=== PATIENT | female | born 1990 | race African-American/Black ===

== ENCOUNTER 2016-07-22 15:14 | Emergency (ER) | payer OTHER ==
[~2016-07-22] VITALS: Ht 152.4 cm; Wt 54.4 kg
[~2016-07-22 15:14] MED LIST: DOXY100C2 PO; HYDR-971 PO; LEVO500T38 PO; METR500T PO; NAPR500T8 PO; OXYC-244 PO; OXYC-323 PO; OXYC10TA32 PO; OXYC1TAB8 PO
[2016-07-22 15:24] VITALS: BP 137/80
[2016-07-22] MEDS ORDERED: OXYC-244 PO (15:28)
--- NOTE | 2016-07-22 15:28 | PHYS DOC ---
Past Medical History Past Medical History: Asthma, IBS, P.I.D. Additional Past Medical Histor: ulcer, endometriosis, Chronic R leg pain, Chronic Pelvic Pain Past Surgical History: Tonsillectomy, Other Additional Past Surgical Histo: right LOWER leg- compound fx Alcohol Use: None Drug Use: None Adult General Chief Complaint Chief Complaint: PAIN CONTROL [facility] HPI Patient is a 26 year old female with history of PID, IBS, chronic abdominal pain, chronic left pelvic pain, who presents today with 10 out of 10 left pelvic pain chronic in nature. Patient states she has been worked up by GI, OB/ MEMBERSHIP SOLICITOR, she states she has been told by the PLANT SPECIALIST she could have cervical cancer as well as chronic left pelvic pain. She was started on amitriptyline and she is on oxycodone 7.5/325 for breakthrough pain. Patient states she ran out of her oxycodone. She states she has an appointment with her family doctor in a couple days. Patient is requesting some pain management today. Review of Systems Review of Systems Constitutional: Denies fever or chills [] Eyes: Denies change in visual acuity, redness, or eye pain [] HENT: Denies nasal congestion or sore throat [] Respiratory: Denies cough or shortness of breath [] Cardiovascular: No additional information not addressed in HPI [] GI: Chronic left pelvic pain : Denies dysuria or hematuria [] Musculoskeletal: Denies back pain or joint pain [] Integument: Denies rash or skin lesions [] Neurologic: Denies headache, focal weakness or sensory changes [] Endocrine: Denies polyuria or polydipsia [] Current Medications Current Medications Current Medications Medications (Trade) Dose Ordered Sig/Luis Start Time Stop Time Status Last Admin Dose Admin Oxycodone/ Acetaminophen (Percocet 7.5/ 325) 2 tab 1X ONCE 07/22/16 15:30 07/22/16 15:31 UNV Allergies Allergies Allergies Coded Allergies Type Severity Reaction Last Updated Verified latex Allergy Severe Anaphylaxis 05/28/16 No Physical Exam Physical Exam Constitutional: Well developed, well nourished, no acute distress, non-toxic appearance. [] HENT: Normocephalic, atraumatic, bilateral external ears normal, oropharynx moist, no oral exudates, nose normal. [] Eyes: PERRLA, EOMI, conjunctiva normal, no discharge. [] Neck: Normal range of motion, no tenderness, supple, no stridor. [] Cardiovascular:Heart rate regular rhythm, no murmur [] Lungs & Thorax: Bilateral breath sounds clear to auscultation [] Abdomen: Bowel sounds normal, soft, no tenderness, no masses, no pulsatile masses. [] Skin: Warm, dry, no erythema, no rash. [] Back: No tenderness, no CVA tenderness. [] Extremities: No tenderness, no cyanosis, no clubbing, ROM intact, no edema. [] Neurologic: Alert and oriented X 3, normal motor function, normal sensory function, no focal deficits noted. [] Psychologic: Affect normal, judgement normal, mood normal. [] EKG EKG [] Radiology/Procedures Radiology/Procedures [] Course & Med Decision Making Course & Med Decision Making Pertinent Labs and Imaging studies reviewed. (See chart for details) Patient is well known to this ED for chronic abdominal pain, pelvic pain on the left side. She has been worked up multiple times in this hospital as well as through the PLANT SPECIALIST and GI. She is here today requesting a prescription for oxycodone. She states she ran out of the medication and is not able to see her doctor until August 12, 2016. I gave her prescription for oxycodone. Shemaron Disclaimer Kelsea Disclaimer This electronic medical record was generated, in whole or in part, using a voice recognition dictation system. Departure Departure Impression: Primary Impression: Pelvic pain Additional Impression: Narcotic dependence Disposition: 01 HOME, SELF-CARE Condition: STABLE Referrals: NO PCP (PCP) Follow-up with your doctor on August 13 2016 as scheduled Patient Instructions: Abdominal Pain (Nonspecific) Additional Instructions: You were seen for chronic l;eft pelvic pain. We recommend you follow-up with your own doctor on August 13, 2016 as scheduled. Try and see if you can get an earlier appointment. Scripts Oxycodone/Apap 7.5-325 (Percocet 7.5-325 Mg Tablet)1 Each Tablet1 Tab PO PRN Q6HRS PRN PAIN #30 TAB Ref 0 Prov:MAX BOO TERRAPIN FISHER 07/22/16 Problem Qualifiers MAX BOO TERRAPIN FISHER Jul 22, 2016 15:28
[2016-07-22] MEDS ORDERED: OXYCODONE/APAP 7.5/325 TABLET. PO ONE (15:30)
== END 2016-07-22 15:38 | disposition home or self-care (01) ==
LOC: ER 15:14
DX: R10.2 Pelvic and perineal pain (principal); F11.20 Opioid dependence, uncomplicated; G89.29 Other chronic pain; K58.9 Irritable bowel syndrome, unspecified; N73.9 Female pelvic inflammatory disease, unspecified; J45.909 Unspecified asthma, uncomplicated; Z91.040 Latex allergy status
CPT/HCPCS: 99283

== ENCOUNTER 2016-07-25 16:44 | Observation (INO) | payer OTHER ==
[~2016-07-25] VITALS: Ht 152.4 cm; Wt 59.0 kg
[2016-07-25] MEDS ORDERED: IV NORMAL SALINE 1000ML BAG 1,000 ML IV ONE (17:30)
[2016-07-25 17:39] LABS: BILIRUBIN,URINE NEGATIVE (NEG); GLUCOSE,URINE NEGATIVE (NEG); NITRITE,URINE NEGATIVE (NEG); PROTEIN,URINE NEGATIVE (NEG-TRACE); UROBILINOGEN,URINE 0.2 mg/dL (0.2 mg/dL)
[2016-07-25 17:44] LABS: NEG OBC UR NEG; POS OBC UR POS
[2016-07-25] MEDS ORDERED: ONDANSETRON PF 4 MG/2 ML VIAL. IV ONE (17:45)
[2016-07-25 17:49] LABS: BACTERIA,URINE 0 /HPF (0-FEW); RBC,URINE OCC /HPF (0-2); SQUAMOUS EPITHELIAL CELL,UR FEW /LPF; WBC,URINE 0 /HPF (0-4)
[2016-07-25 18:22] LABS: BASO # 0.1 x10^3/uL (0.0-0.2); BASO % 1 % (0-3); EOS % 4 % (0-3); HEMATOCRIT 44.5 % (36.0-47.0); HEMOGLOBIN 14.7 g/dL (12.0-15.5); LYMPH # 2.7 x10^3/uL (1.0-4.8); LYMPH % 36 % (24-48); MEAN CORPUSCULAR HEMOGLOBIN 31 pg (25-35); MEAN CORPUSCULAR HGB CONC 33 g/dL (31-37); MEAN CORPUSCULAR VOLUME 92 fL (79-100); MONO % 8 % (0-9); NEUT % 51 % (31-73); PLATELET COUNT 246 x10^3/uL (140-400); RED BLOOD COUNT 4.82 x10^6/uL (3.50-5.40); RED CELL DISTRIBUTION WIDTH 14.2 % (11.5-14.5); WHITE BLOOD COUNT 7.4 x10^3/uL (4.0-11.0)
[2016-07-25] MEDS: HYDROMORPHONE 2 MG/ML VIAL. IV PRN ×4 (18:23→21:57)
[2016-07-25 18:29] LABS: CALCIUM 8.8 mg/dL (8.5-10.1); CREATININE 0.7 mg/dL (0.6-1.0); GFR 124.4; POTASSIUM 3.9 mmol/L (3.5-5.1)
[2016-07-25 18:34] LABS: ALBUMIN 4.1 g/dL (3.4-5.0); ALBUMIN/GLOBULIN RATIO 1.2 (1.0-1.7); TOTAL BILIRUBIN 0.3 mg/dL (0.2-1.0); TOTAL PROTEIN 7.5 g/dL (6.4-8.2)
[2016-07-25] MEDS: CEFTRIAXONE IM 250 MG VIAL. IM ONE ×2 (19:21→20:31)
--- NOTE | 2016-07-25 19:28 | RAD ---
PROCEDURE Pelvic sonogram with transvaginal scans. HISTORY Pelvic pain bilaterally. TECHNIQUE Transabdominal and transvaginal scans were performed. COMPARISON None available. FINDINGS Transabdominal scans were limited due to non distended urinary bladder. Transvaginal scans show the uterus is normal in size measuring approximately 8.1 cm in length by 4.6 cm AP by 5.6 cm transversely. The endometrial echo is normal measuring 8 millimeters AP. The myometrium is unremarkable. Both ovaries contain small follicles. The ovaries are not enlarged. The right measures 3.0 cm in length by 2.2 cm x 1.7 cm and the left 3.1 cm in length by 2.1 cm x 1.6 cm. Blood flow is demonstrated to the ovaries. No free pelvic fluid is seen. IMPRESSION Normal pelvic sonogram with transvaginal scans. Electronically signed by: Pina Riley (Jul 25, 2016 19:27:37)
[2016-07-25] MEDS ORDERED: AZITHROMYCIN 250 MG TABLET PO ONE (19:30)
[2016-07-25] MEDS ORDERED: MORPHINE SULFATE 2 MG/ML DISP.SYRIN. IV PRN (20:00)
[2016-07-25] MEDS ORDERED: ONDANSETRON PF 4 MG/2 ML VIAL. IV PRN (20:00)
--- NOTE | 2016-07-25 20:11 | PHYS DOC ---
Past Medical History Past Medical History: Asthma, IBS, P.I.D. Additional Past Medical Histor: ulcer, endometriosis, Chronic R leg pain, Chronic Pelvic Pain Past Surgical History: Tonsillectomy, Other Additional Past Surgical Histo: right LOWER leg- compound fx Alcohol Use: None Drug Use: None Adult General Chief Complaint Chief Complaint: ABDOMINAL PAIN HPI HPI 26-year-old female presenting to the emergency department today with pelvic pain nausea vomiting. The pain as a cramping sensation 8 out of 10. Associated with watery diarrhea approximate 4-5 times a day. The pain is sharp nonradiating without specific timing or alleviating factors. The pain is been present for 2 days. She has a history of chronic pelvic pain and endometriosis. Review of Systems Review of Systems ROS negative for fevers chills. Positive for nausea vomiting. Negative for chest pain or shortness of breath. All other review of systems is negative unless otherwise noted in history of present illness. Current Medications Current Medications Current Medications Medications (Trade) Dose Ordered Sig/Luis Start Time Stop Time Status Last Admin Dose Admin Azithromycin (Zithromax) 1,000 mg 1X ONCE 07/25/16 19:30 07/25/16 19:31 DC 07/25/16 19:21 1,000 MG Ceftriaxone Sodium (Rocephin Im) 250 mg 1X ONCE 07/25/16 19:30 07/25/16 19:31 DC 07/25/16 20:31 250 MG Hydromorphone HCl (Dilaudid) 0.5 mg PRN Q1HR PRN 07/25/16 17:30 07/25/16 20:34 DC 07/25/16 20:32 0.5 MG Morphine Sulfate 2 mg PRN Q2HR PRN 07/25/16 20:00 07/25/16 21:44 DC Ondansetron HCl (Zofran) 4 mg PRN Q8HRS PRN 07/25/16 20:00 07/25/16 21:44 DC Ondansetron HCl 4 mg 4 mg 1X ONCE 07/25/16 17:45 07/25/16 17:46 DC 07/25/16 18:23 4 MG Sodium Chloride (Iv Sodium Chloride 0.9% 1000ml Bag) 1,000 ml @ 1,000 mls/hr 1X ONCE 07/25/16 17:30 07/25/16 18:29 DC 07/25/16 18:23 1,000 MLS/HR Allergies Allergies Allergies Coded Allergies Type Severity Reaction Last Updated Verified latex Allergy Severe Anaphylaxis 05/28/16 No Physical Exam Physical Exam Constitutional: Well developed, well nourished, no acute distress, non-toxic appearance. HENT: Normocephalic, atraumatic, bilateral external ears normal, oropharynx moist, no oral exudates, nose normal. [] Eyes: PERRLA, EOMI, conjunctiva normal, no discharge. Neck: Normal range of motion, no tenderness, supple, no stridor. [] Cardiovascular:Heart rate regular rhythm, no murmur Lungs & Thorax: Bilateral breath sounds clear to auscultation [] Abdomen: Soft nontender abdomen without rebound tenderness or guarding present. Negative McBurneys point. Negative Li sign. No ecchymosis present. Pelvic exam performed in the presence of a female nurse showed mild cervicitis with cervical motion tenderness. No fluctuance on the adnexa. Minimal normal colored vaginal discharge present. Skin: Warm, dry, no erythema, no rash. [] Back: No tenderness, no CVA tenderness. Extremities: No tenderness, no cyanosis, no clubbing, ROM intact, no edema. [] Neurologic: Alert and oriented X 3, normal motor function, normal sensory function, no focal deficits noted. Psychologic: Affect normal, judgement normal, mood normal. [] Current Patient Data Vital Signs Vital Signs Date Time Temp Pulse Resp B/P Pulse Ox O2 Delivery O2 Flow Rate FiO2 07/25/16 20:32 Room Air 07/25/16 20:04 66 15 94/53 98 07/25/16 17:18 99.2 99.2 Lab Values Laboratory Tests Test 07/25/16 17:10 07/25/16 18:10 Urine Collection Type Unknown Urine Color Yellow Urine Clarity Clear Urine pH 8.0 Urine Specific [place] 1.010 Urine Protein Negativemg/dL (NEG-TRACE) Urine Glucose (UA) Negativemg/dL (NEG) Urine Ketones (Stick) Negativemg/dL (NEG) Urine Blood Trace (NEG) Urine Nitrite Negative (NEG) Urine Bilirubin Negative (NEG) Urine Urobilinogen Dipstick 0.2mg/dL (0.2 mg/dL) Urine Leukocyte Esterase Negative (NEG) Urine RBC Occ/HPF (0-2) Urine WBC 0/HPF (0-4) Urine Squamous Epithelial Cells Few/LPF Urine Bacteria 0/HPF (0-FEW) Urine Test Negative (NEG) White Blood Count 7.4x10^3/uL (4.0-11.0) Red Blood Count 4.82x10^6/uL (3.50-5.40) Hemoglobin 14.7g/dL (12.0-15.5) Hematocrit 44.5% (36.0-47.0) Mean Corpuscular Volume 92fL (79-100) Mean Corpuscular Hemoglobin 31pg (25-35) Mean Corpuscular Hemoglobin Concent 33g/dL (31-37) Red Cell Distribution Width 14.2% (11.5-14.5) Platelet Count 246x10^3/uL (140-400) Neutrophils (%) (Auto) 51% (31-73) Lymphocytes (%) (Auto) 36% (24-48) Monocytes (%) (Auto) 8% (0-9) Eosinophils (%) (Auto) 4% (0-3) H Basophils (%) (Auto) 1% (0-3) Neutrophils # (Auto) 3.8x10^3uL (1.8-7.7) Lymphocytes # (Auto) 2.7x10^3/uL (1.0-4.8) Monocytes # (Auto) 0.6x10^3/uL (0.0-1.1) Eosinophils # (Auto) 0.3x10^3/uL (0.0-0.7) Basophils # (Auto) 0.1x10^3/uL (0.0-0.2) Sodium Level 141mmol/L (136-145) Potassium Level 3.9mmol/L (3.5-5.1) Chloride Level 105mmol/L (98-107) Carbon Dioxide Level 28mmol/L (21-32) Anion Gap 8 (6-14) Blood Urea Nitrogen 8mg/dL (7-20) Creatinine 0.7mg/dL (0.6-1.0) Estimated GFR (Cockcroft-Gault) 124.4 BUN/Creatinine Ratio 11 (6-20) Glucose Level 83mg/dL (70-99) Calcium Level 8.8mg/dL (8.5-10.1) Total Bilirubin 0.3mg/dL (0.2-1.0) Aspartate Amino Transferase (AST) 13U/L (15-37) L Alanine Aminotransferase (ALT) 19U/L (14-59) Alkaline Phosphatase 43U/L (46-116) L Total Protein 7.5g/dL (6.4-8.2) Albumin 4.1g/dL (3.4-5.0) Albumin/Globulin Ratio 1.2 (1.0-1.7) Lipase 280U/L (73-393) Laboratory Tests 07/25/16 18:10 Laboratory Tests 07/25/16 18:10 Microbiology 07/25/16 Wet Prep - Final, Complete EKG EKG [] Radiology/Procedures Radiology/Procedures [facility] [address] [place] [address] IMAGING REPORT Signed PATIENT: DAVID GIRALDO ACCOUNT: [id number] : 1990 LOCATION: ER AGE: 26 SEX: F EXAM STATUS: REG ER ORD. PHYSICIAN: ROYER FERNÁNDEZ MD REASON: RIGHT PELVIC PAIN PROCEDURE: PELVIS W/TV PROCEDURE Pelvic sonogram with transvaginal scans. HISTORY Pelvic pain bilaterally. TECHNIQUE Transabdominal and transvaginal scans were performed. COMPARISON None available. FINDINGS Transabdominal scans were limited due to non distended urinary bladder. Transvaginal scans show the uterus is normal in size measuring approximately 8.1 cm in length by 4.6 cm AP by 5.6 cm transversely. The endometrial echo is normal measuring 8 millimeters AP. The myometrium is unremarkable. Both ovaries contain small follicles. The ovaries are not enlarged. The right measures 3.0 cm in length by 2.2 cm x 1.7 cm and the left 3.1 cm in length by 2.1 cm x 1.6 cm. Blood flow is demonstrated to the ovaries. No free pelvic fluid is seen. IMPRESSION Normal pelvic sonogram with transvaginal scans. Electronically signed by: Pina Vidal (Jul 25, 2016 19:27:37) DICTATED and SIGNED BY: PINA VIDAL MD DATE: 07/25/161926 CC: ROYER FERNÁNDEZ MD; UNKNOWN PCP NAME ~ [] Course & Med Decision Making Course & Med Decision Making Pertinent Labs and Imaging studies reviewed. (See chart for details) 26-year-old female presenting to the emergency department today with pelvic pain. Vital signs were unremarkable. Physical exam showed mild cervicitis otherwise unremarkable. The patient was given Rocephin and azithromycin in the emergency department and multiple doses of pain medications. On reevaluation her pain remained so she was subsequently admitted for pain control. Blood work was unremarkable urinalysis not suggestive of infection. Gonorrhea and chlamydia PCR sent. The patient was then admitted for further evaluation workup and care. Gynecology consulted. Dragon Disclaimer Dragon Disclaimer This electronic medical record was generated, in whole or in part, using a voice recognition dictation system. Departure Departure Impression: Primary Impression: Pelvic pain Disposition: ADMITTED INPATIENT Admitting Physician: Pedro Pablo Davila Condition: STABLE Referrals: UNKNOWN PCP NAME (PCP) ROYER FERNÁNDEZ MD Jul 25, 2016 20:11
[2016-07-25] MEDS ORDERED: NAPR500T3 PO (22:00)
[2016-07-25] MEDS ORDERED: ZOLPIDEM 5 MG TABLET. PO PRN (22:00)
[2016-07-25 22:10] VITALS: BP 116/78
[2016-07-26] MEDS: ONDANSETRON PF 4 MG/2 ML VIAL. IV PRN ×2 (00:07→06:47)
[2016-07-26] MEDS: HYDROMORPHONE 2 MG/ML VIAL. IV PRN ×6 (00:08→11:02)
[2016-07-26 00:15] VITALS: BP 91/54
[2016-07-26 03:12] VITALS: BP 106/55
[2016-07-26] MEDS ORDERED: NAPROXEN 500 MG TABLET PO PRN (03:30)
[2016-07-26] MEDS: OXYCODONE/APAP 7.5/325 TABLET. PO PRN ×2 (03:34→10:04)
[2016-07-26 07:00] VITALS: BP 100/57
[2016-07-26 07:17] LABS: BASO % 1 % (0-3); EOS % 4 % (0-3); HEMOGLOBIN 13.1 g/dL (12.0-15.5); LYMPH # 3.3 x10^3/uL (1.0-4.8); LYMPH % 46 % (24-48); MEAN CORPUSCULAR HEMOGLOBIN 30 pg (25-35); MEAN CORPUSCULAR HGB CONC 33 g/dL (31-37); MEAN CORPUSCULAR VOLUME 93 fL (79-100); MONO % 8 % (0-9); NEUT % 42 % (31-73); PLATELET COUNT 221 x10^3/uL (140-400); RED BLOOD COUNT 4.29 x10^6/uL (3.50-5.40); RED CELL DISTRIBUTION WIDTH 13.8 % (11.5-14.5); WHITE BLOOD COUNT 7.2 x10^3/uL (4.0-11.0)
[2016-07-26 07:24] LABS: CALCIUM 8.2 mg/dL (8.5-10.1); CREATININE 0.7 mg/dL (0.6-1.0); GFR 124.4; POTASSIUM 3.5 mmol/L (3.5-5.1)
[2016-07-26] MEDS ORDERED: NAPROXEN 500 MG TABLET PO SCH (09:00)
[2016-07-26] MEDS ORDERED: DIPHENHYDRAMINE HCL 25 MG CAPSULE PO PRN (09:15)
--- NOTE | 2016-07-26 10:53 | PDOC ---
Provider Note Provider Note 23 hr admit [facility] LONA BECKER MD Jul 26, 2016 10:53
[2016-07-26 10:54] VITALS: BP 116/78
--- NOTE | 2016-07-26 17:23 | SSS ---
ADMIT DATE: 07/26/2016 23-HOUR ADMIT AND DISCHARGE SUMMARY CHIEF COMPLAINT: Lower abdominal pain. HISTORY OF PRESENT ILLNESS: The patient is a 26-year-old female admitted through the Emergency Room overnight because of lower abdominal pain. This is a chronic problem for her as she describes it as vague, etc. Known diagnosis of endometriosis. She does not have her periods right now. She is not interested in any NSAIDs. Ultrasound done showed normal sonographic pelvis. She did follow up with Dr. Carlita Kern, CONVEYOR ATTENDANT and was told that she needed narcotics for chronic lower abdominal pain and that they as a service were uncomfortable doing that. She has a followup with [facility], primary physician group care of Dr. David Gupta on the , but her pain was so much that had to come to the Emergency Room. She takes Elavil and Percocet 7.5/325 two tablets almost 3 to 4 times a day for her chronic abdominal pain. Her labs are okay. Imaging is otherwise negative as mentioned above. PAST MEDICAL HISTORY: Endometriosis. PAST SURGICAL HISTORY: Noncontributory. SOCIAL HISTORY: No smoking, no alcohol, no street drugs. Lives at home with family. FAMILY HISTORY: Reviewed. No pertinent history. REVIEW OF SYSTEMS: All 14-point systems were reviewed. Denies fever, diarrhea, constipation, chest pain, shortness of breath, etc. All else is negative. PHYSICAL EXAMINATION: GENERAL: Awake, alert and oriented x 3. Not in acute respiratory distress. HEENT: Unremarkable. LUNGS: Clear to auscultation bilaterally. CARDIOVASCULAR: Normal regular rate and rhythm. No murmurs, rubs or gallops. ABDOMEN: Soft, flabby, nontender, normoactive bowel sounds. GENITALIA: Appropriate for age. EXTREMITIES: Negative edema. Pulses are full and equal. . ASSESSMENT AND PLAN: 1. Chronic abdominal pain. 2. Chronic narcotic use. 3. Endometriosis and interested in NSAIDs. PLAN OF CARE: CONVEYOR ATTENDANT has been consulted, but clearly has followed up with CONVEYOR ATTENDANT and no other recommendations from the service. Keep follow up with [facility] physician, primary service. Will go home with Percocet, that was the reason she came in because she ran out of Percocet scripts. I did up her to 10/325 one tab p.o. q. 8 hours p.r.n. for severe pain. HOSPITAL COURSE: The patient admitted to observation. Discharged on p.o. Percocet, scripts provided. DISCHARGE INSTRUCTIONS: Follow up with Dr. David Gupta, [facility]. CONSULTS PERFORMED: RPG PROGRAMMER ANALYST not seen. PROCEDURES PERFORMED: None. DISPOSITION: Home. Time spent discharging both H and P and discharge summary is 30 minutes. The patient was seen and examined, discussed with RNOleg. LONA BECKER MD DR: /nts JOB#: [id number] / [id number]
== END 2016-07-26 12:22 | disposition home or self-care (01) ==
LOC: ER 16:44 → 5 SOUTH 20:39
PROVIDERS: ADMIT Internal Medicine; ATTEND Internal Medicine
DX: R10.30 Lower abdominal pain, unspecified (principal); G89.29 Other chronic pain; N80.9 Endometriosis, unspecified; J45.909 Unspecified asthma, uncomplicated; K58.0 Irritable bowel syndrome with diarrhea; F11.90 Opioid use, unspecified, uncomplicated
CPT/HCPCS: 36415; 76830; 76856; 80048; 80053; 81001; 81025; 83690; 85027; 87491; 87591; 96361; 96372; 96374; 96375; 96376; 99285; G0378; J0696; J1170; J2405; J7030; Q0111; Q0144; Q0163; G0379

== ENCOUNTER 2016-08-17 14:22 | Emergency (ER) | payer OTHER ==
[~2016-08-17 14:22] MED LIST changes: +CYCL10TA2 PO; +NAPR500T3 PO
[2016-08-17 14:43] VITALS: BP 107/65
--- NOTE | 2016-08-17 15:25 | PHYS DOC ---
Past Medical History Past Medical History: Asthma, IBS, P.I.D. Additional Past Medical Histor: ulcer, endometriosis, Chronic R leg pain, Chronic Pelvic Pain Past Surgical History: Tonsillectomy, Other Additional Past Surgical Histo: right LOWER leg- compound fx Smoking: Less than 1pk/day Alcohol Use: None Drug Use: None Adult General Chief Complaint Chief Complaint: MEDICATION REFILL HPI HPI Patient is a 26 year old female with chronic pelvic pain due to endometriosis who presents for medication refill. She has been prescribed Percocet for her chronic pain by her COMMUNICATIONS ASSISTANT doctor and PCP. She has been taking 2 tabs of 7.5/ 325mg every 6 hours for her pain. She was prescribed 10/325mg tabs 5 days ago. She had been taking 1.5 tabs every 6 hours to control her pain. She ran out of the medication today. She states that her pain today is no different from her chronic pain. She has had some dysuria and urinary frequency. She her irregular cycles due to her endometriosis. Her COMMUNICATIONS ASSISTANT doctor is Dr. Aguilar. Her PCP is Dr. Gupta. Review of Systems Review of Systems Constitutional: Denies fever or chills. [] GI: Denies nausea, vomiting, bloody stools or diarrhea. Reports chronic pelvic pain. : Denies hematuria. Reports dysuria and urinary frequency. Musculoskeletal: Denies back pain or joint pain. [] Integument: Denies rash or skin lesions. [] Neurologic: Denies headache, focal weakness or sensory changes. [] All systems reviewed and negative unless otherwise stated in the HPI. Allergies Allergies Allergies Coded Allergies Type Severity Reaction Last Updated Verified latex Allergy Severe Anaphylaxis 05/28/16 No Physical Exam Physical Exam Constitutional: Well developed, well nourished, no acute distress, non-toxic appearance. [] HENT: Normocephalic, atraumatic, oropharynx moist. [] Eyes: PERRLA, EOMI, conjunctiva normal, no discharge. [] Neck: Normal range of motion, no tenderness, supple, no stridor. [] Cardiovascular: Heart rate regular rhythm, no murmur. [] Lungs & Thorax: Bilateral breath sounds clear to auscultation without wheezes, rales, or rhonchi. [] Abdomen: Bowel sounds normal, soft, diffuse lower abdominal tenderness, no masses, no pulsatile masses. [] Skin: Warm, dry, no erythema, no rash. [] Neurologic: Alert and oriented X 3, normal motor function, normal sensory function, no focal deficits noted. [] Psychologic: Affect normal, judgement normal, mood normal. [] Current Patient Data Vital Signs Vital Signs Date Time Temp Pulse Resp B/P Pulse Ox O2 Delivery O2 Flow Rate FiO2 08/17/16 14:43 99.0 88 16 98 Room Air 99.0 Lab Values Laboratory Tests Test 08/17/16 15:25 Urine Collection Type Unknown Urine Color Yellow Urine Clarity Cloudy Urine pH 6.0 Urine Specific [place] 1.020 Urine Protein 30mg/dL (NEG-TRACE) Urine Glucose (UA) Negativemg/dL (NEG) Urine Ketones (Stick) Negativemg/dL (NEG) Urine Blood Large (NEG) Urine Nitrite Negative (NEG) Urine Bilirubin Negative (NEG) Urine Urobilinogen Dipstick 0.2mg/dL (0.2 mg/dL) Urine Leukocyte Esterase Negative (NEG) Urine RBC 6-10/HPF (0-2) Urine WBC Occ/HPF (0-4) Urine Squamous Epithelial Cells Many/LPF Urine Bacteria Few/HPF (0-FEW) Urine Mucus Marked/LPF Urine Test Negative (NEG) EKG EKG [] Radiology/Procedures Radiology/Procedures [] Course & Med Decision Making Course & Med Decision Making Pertinent Labs and Imaging studies reviewed. (See chart for details) The patient is a 26-year-old female who presents for medication refill for her chronic pelvic pain related to endometriosis. She does report some urinary symptoms, however urine appears to be contaminated today. She is discharged home with prescription for Percocet. She is advised that the quantity will not last her until her appointment on 08/27/16 so she should either use very sparingly or arrange for a refill from her PCP or COMMUNICATIONS ASSISTANT sooner. She is advised that the emergency department is not the appropriate source for medication refills. Return precautions were discussed. She verbalizes understanding and agrees with plan. Dragon Disclaimer Dragon Disclaimer This electronic medical record was generated, in whole or in part, using a voice recognition dictation system. Departure Departure Impression: Primary Impression: Chronic pelvic pain in female Additional Impression: Medication refill Disposition: HOME, SELF-CARE Condition: STABLE Referrals: MENDY GUPTA MD, DONALD G Jr MD Patient Instructions: Chronic Pain Management-Brief, Medication Refill, Emergency Department, Pelvic Pain, Female, [id number] Additional Instructions: Your urine does not show an infection today. Please take the prescribed pain medication as directed. Do not drive or operate heavy machinery while taking pain medication. Please follow up with your primary care doctor or your COMMUNICATIONS ASSISTANT doctor for refills of your pain medication. The emergency department is not the appropriate place for refill of chronic medications. Return to the emergency department if you have any new or concerning symptoms. Scripts Oxycodone/Apap 7.5-325 (Percocet 7.5-325 Mg Tablet)1 Each Tablet1 Tab PO Q6HRS PRN PAIN #15 TAB Ref 0 Prov:SYLVIA HESTER 08/17/16 Problem Qualifiers SYLVIA HESTER Aug 17, 2016 15:25
[2016-08-17 15:37] LABS: NEG OBC UR NEG; POS OBC UR POS
[2016-08-17 15:38] LABS: BILIRUBIN,URINE NEGATIVE (NEG); GLUCOSE,URINE NEGATIVE (NEG); NITRITE,URINE NEGATIVE (NEG); PROTEIN,URINE 30 mg/dL (NEG-TRACE); UROBILINOGEN,URINE 0.2 mg/dL (0.2 mg/dL)
[2016-08-17 15:47] LABS: BACTERIA,URINE FEW /HPF (0-FEW); SQUAMOUS EPITHELIAL CELL,UR MANY /LPF; WBC,URINE OCC /HPF (0-4)
[2016-08-17] MEDS ORDERED: OXYC-244 PO (16:16)
== END 2016-08-17 16:22 | disposition home or self-care (01) ==
LOC: ER 14:24
DX: G89.29 Other chronic pain (principal); R10.2 Pelvic and perineal pain; Z76.0 Encounter for issue of repeat prescription; J45.909 Unspecified asthma, uncomplicated; F17.200 Nicotine dependence, unspecified, uncomplicated; Z98.890 Other specified postprocedural states; Z91.040 Latex allergy status
CPT/HCPCS: 81001; 81025; 99284

== ENCOUNTER 2016-08-25 15:45 | Emergency (ER) | payer OTHER ==
[~2016-08-25] VITALS: Ht 152.4 cm; Wt 59.0 kg
[2016-08-25 16:59] VITALS: BP 144/100
--- NOTE | 2016-08-25 17:21 | PHYS DOC ---
Past Medical History Past Medical History: Asthma, IBS, P.I.D. Additional Past Medical Histor: ulcer, endometriosis, Chronic R leg pain, Chronic Pelvic Pain Past Surgical History: Tonsillectomy, Other Additional Past Surgical Histo: right LOWER leg- compound fx Alcohol Use: None Drug Use: None Adult General Chief Complaint Chief Complaint: MEDICATION REFILL [facility] HPI Patient is a 26 year old female with a history of chronic pelvic pain who presents today for medication refill for Percocet. This patient has been seen in the ED multiple times for her chronic pelvic pain. She has been worked up multiple times by her PCP, HYDROMETER CALIBRATOR as well as EDs in the [place] area. She states all her workups are negative. Patient states she ran out of her Percocet this morning. Patient denies anything new about her pain today. Review of Systems Review of Systems Constitutional: Denies fever or chills [] Eyes: Denies change in visual acuity, redness, or eye pain [] HENT: Denies nasal congestion or sore throat [] Respiratory: Denies cough or shortness of breath [] Cardiovascular: No additional information not addressed in HPI [] GI: Chronic pelvic pain : Denies dysuria or hematuria [] Musculoskeletal: Denies back pain or joint pain [] Integument: Denies rash or skin lesions [] Neurologic: Denies headache, focal weakness or sensory changes [] Endocrine: Denies polyuria or polydipsia [] Current Medications Current Medications Current Medications Medications (Trade) Dose Ordered Sig/Luis Start Time Stop Time Status Last Admin Dose Admin Hydromorphone HCl (Dilaudid) 1 mg 1X ONCE 08/25/16 17:30 08/25/16 17:31 Allergies Allergies Allergies Coded Allergies Type Severity Reaction Last Updated Verified latex Allergy Severe Anaphylaxis 05/28/16 No Physical Exam Physical Exam Constitutional: Well developed, well nourished, no acute distress, non-toxic appearance. [] HENT: Normocephalic, atraumatic, bilateral external ears normal, oropharynx moist, no oral exudates, nose normal. [] Eyes: PERRLA, EOMI, conjunctiva normal, no discharge. [] Neck: Normal range of motion, no tenderness, supple, no stridor. [] Cardiovascular:Heart rate regular rhythm, no murmur [] Lungs & Thorax: Bilateral breath sounds clear to auscultation [] Abdomen: Bowel sounds normal, soft, no tenderness, no masses, no pulsatile masses. [] Skin: Warm, dry, no erythema, no rash. [] Back: No tenderness, no CVA tenderness. [] Extremities: No tenderness, no cyanosis, no clubbing, ROM intact, no edema. [] Neurologic: Alert and oriented X 3, normal motor function, normal sensory function, no focal deficits noted. [] Psychologic: Affect normal, judgement normal, mood normal. [] Current Patient Data Vital Signs Vital Signs Date Time Temp Pulse Resp B/P Pulse Ox O2 Delivery O2 Flow Rate FiO2 08/25/16 16:59 98.4 125 20 97 Room Air 98.4 EKG EKG [] Radiology/Procedures Radiology/Procedures [] Course & Med Decision Making Course & Med Decision Making Pertinent Labs and Imaging studies reviewed. (See chart for details) Patient is in the ED for chronic pelvic pain. There is nothing unusual about her pain today. She was given Percocet prescription and discharged to follow-up with her PCP, HYDROMETER CALIBRATOR. I also recommended a pain clinic. Dragon Disclaimer Dragon Disclaimer This electronic medical record was generated, in whole or in part, using a voice recognition dictation system. Departure Departure Impression: Primary Impression: Chronic pelvic pain in female Additional Impression: Medication refill Disposition: 01 HOME, SELF-CARE Condition: STABLE Referrals: NO PCP (PCP) Follow up with your PCP as soon as possible Patient Instructions: Abdominal Pain (Nonspecific) Additional Instructions: You were seen for chronic pelvic pain. We highly recommend you follow-up with the PCP, HYDROMETER CALIBRATOR, and a pain clinic. Scripts Oxycodone/Apap 10-325 (Percocet 10-325 Mg Tablet)1 Each Tablet1 Tab PO PRN Q6HRS PRN PAIN #12 TAB Ref 0 Prov:MAX BOO APRN 08/25/16 Problem Qualifiers MAX BOO APRN Aug 25, 2016 17:21
[2016-08-25] MEDS ORDERED: OXYC-250 PO (17:25)
[2016-08-25] MEDS ORDERED: HYDROMORPHONE 2 MG/ML VIAL. IM ONE (17:30)
== END 2016-08-25 17:37 | disposition home or self-care (01) ==
LOC: ER 15:45
DX: R10.2 Pelvic and perineal pain (principal); G89.29 Other chronic pain; Z76.0 Encounter for issue of repeat prescription; K58.9 Irritable bowel syndrome, unspecified; J45.909 Unspecified asthma, uncomplicated; N73.9 Female pelvic inflammatory disease, unspecified; Z91.040 Latex allergy status
CPT/HCPCS: 96372; 99283; J1170

== ENCOUNTER 2016-09-01 17:23 | Emergency (ER) | payer OTHER ==
[~2016-09-01] VITALS: Ht 152.4 cm; Wt 59.0 kg
[~2016-09-01 17:23] MED LIST changes: +OXYC-250 PO
[2016-09-01 20:07] VITALS: BP 132/91
[2016-09-01] MEDS ORDERED: HYDROMORPHONE 2 MG/ML VIAL. IM ONE (20:30)
[2016-09-01] MEDS ORDERED: OXYC-250 PO (20:38)
--- NOTE | 2016-09-01 20:38 | PHYS DOC ---
Past Medical History Past Medical History: Asthma, IBS, P.I.D. Additional Past Medical Histor: ulcer, endometriosis, Chronic R leg pain, Chronic Pelvic Pain Past Surgical History: Tonsillectomy, Other Additional Past Surgical Histo: right LOWER leg- compound fx Alcohol Use: None Drug Use: None Adult General Chief Complaint Chief Complaint: PELVIC PAIN [facility] HPI Patient is a 26 year old female with extensive history of pelvic pain, PID, low abdominal pain, who has been worked up multiple times for her pain with negative results presents today for chronic pelvic pain. Patient states the last time she was seen in the ED she was given a wrong dose of oxycodone and it is not working. She states she normally takes the 10/325 mg she was given the 7.5/325 mg. Patient denies anything unusual about her pain today. Review of Systems Review of Systems Constitutional: Denies fever or chills [] Eyes: Denies change in visual acuity, redness, or eye pain [] HENT: Denies nasal congestion or sore throat [] Respiratory: Denies cough or shortness of breath [] Cardiovascular: No additional information not addressed in HPI [] GI: Pelvic pain : Denies dysuria or hematuria [] Musculoskeletal: Denies back pain or joint pain [] Integument: Denies rash or skin lesions [] Neurologic: Denies headache, focal weakness or sensory changes [] Endocrine: Denies polyuria or polydipsia [] Current Medications Current Medications Current Medications Medications (Trade) Dose Ordered Sig/Luis Start Time Stop Time Status Last Admin Dose Admin Hydromorphone HCl (Dilaudid) 2 mg 1X ONCE 09/01/16 20:30 09/01/16 20:31 DC Allergies Allergies Allergies Coded Allergies Type Severity Reaction Last Updated Verified latex Allergy Severe Anaphylaxis 05/28/16 No Physical Exam Physical Exam Constitutional: Well developed, well nourished, no acute distress, non-toxic appearance. [] HENT: Normocephalic, atraumatic, bilateral external ears normal, oropharynx moist, no oral exudates, nose normal. [] Eyes: PERRLA, EOMI, conjunctiva normal, no discharge. [] Neck: Normal range of motion, no tenderness, supple, no stridor. [] Cardiovascular:Heart rate regular rhythm, no murmur [] Lungs & Thorax: Bilateral breath sounds clear to auscultation [] Abdomen: Bowel sounds normal, soft, no tenderness, no masses, no pulsatile masses. [] Skin: Warm, dry, no erythema, no rash. [] Back: No tenderness, no CVA tenderness. [] Extremities: No tenderness, no cyanosis, no clubbing, ROM intact, no edema. [] Neurologic: Alert and oriented X 3, normal motor function, normal sensory function, no focal deficits noted. [] Psychologic: Affect normal, judgement normal, mood normal. [] Current Patient Data Vital Signs Vital Signs Date Time Temp Pulse Resp B/P Pulse Ox O2 Delivery O2 Flow Rate FiO2 09/01/16 20:07 98.1 132 132/91 100 98.1 09/01/16 19:33 20 Room Air EKG EKG [] Radiology/Procedures Radiology/Procedures [] Course & Med Decision Making Course & Med Decision Making Pertinent Labs and Imaging studies reviewed. (See chart for details) Patient is in the ED with chronic pelvic pain. She was given pain medicines and discharged. There is nothing unusual about her pain. She was encouraged to consider following up with her own doctor instead of using the ED for chronic pain. Dragon Disclaimer Dragon Disclaimer This electronic medical record was generated, in whole or in part, using a voice recognition dictation system. Departure Departure Impression: Primary Impression: Chronic pelvic pain in female Disposition: 01 HOME, SELF-CARE Condition: STABLE Referrals: NO PCP (PCP) Please follow-up with your own doctor as soon as possible Patient Instructions: Abdominal Pain Additional Instructions: You were seen for chronic pelvic pain. Consider following up with their doctor as soon as possible. Scripts Oxycodone/Apap 10-325 (Percocet 10-325 Mg Tablet)1 Each Tablet1 Tab PO Q4-6HRS # 20 TAB Prov:CHARLOTTEMAX BECERRA TORI 09/01/16 JACKIMAX Valentin TORI Sep 01, 2016 20:38
== END 2016-09-01 21:16 | disposition home or self-care (01) ==
LOC: ER 17:23
DX: G89.29 Other chronic pain (principal); R10.2 Pelvic and perineal pain; K58.9 Irritable bowel syndrome, unspecified; J45.909 Unspecified asthma, uncomplicated; N73.9 Female pelvic inflammatory disease, unspecified; Z91.040 Latex allergy status
CPT/HCPCS: 99283

== ENCOUNTER 2016-09-07 11:03 | Emergency (ER) | payer OTHER ==
[~2016-09-07] VITALS: Ht 152.4 cm; Wt 58.1 kg
[2016-09-07 12:10] VITALS: BP 147/83
[2016-09-07] MEDS ORDERED: HYDROMORPHONE 2 MG/ML VIAL. IM ONE (12:30)
--- NOTE | 2016-09-07 12:59 | PHYS DOC ---
Past Medical History Past Medical History: Asthma, IBS, P.I.D. Additional Past Medical Histor: ulcer, endometriosis, Chronic R leg pain, Chronic Pelvic Pain Past Surgical History: Tonsillectomy, Other Additional Past Surgical Histo: right LOWER leg- compound fx Alcohol Use: None Drug Use: None Adult General Chief Complaint Chief Complaint: GROIN PAIN HPI HPI Patient is a 26 year old female with history of chronic pelvic pain who presents with chronic pelvic pain moderate in nature. Patient states she has an appointment with in 3 weeks. Patient states there is nothing unusual about her pain today. Review of Systems Review of Systems Constitutional: Denies fever or chills [] Eyes: Denies change in visual acuity, redness, or eye pain [] HENT: Denies nasal congestion or sore throat [] Respiratory: Denies cough or shortness of breath [] Cardiovascular: No additional information not addressed in HPI [] GI: Chronic pelvic pain : Denies dysuria or hematuria [] Musculoskeletal: Denies back pain or joint pain [] Integument: Denies rash or skin lesions [] Neurologic: Denies headache, focal weakness or sensory changes [] Endocrine: Denies polyuria or polydipsia [] Current Medications Current Medications Current Medications Medications (Trade) Dose Ordered Sig/Luis Start Time Stop Time Status Last Admin Dose Admin Hydromorphone HCl (Dilaudid) 2 mg 1X ONCE 09/07/16 12:30 09/07/16 12:40 DC 09/07/16 12:45 2 MG Allergies Allergies Allergies Coded Allergies Type Severity Reaction Last Updated Verified latex Allergy Severe Anaphylaxis 05/28/16 No Physical Exam Physical Exam Constitutional: Well developed, well nourished, no acute distress, non-toxic appearance. [] HENT: Normocephalic, atraumatic, bilateral external ears normal, oropharynx moist, no oral exudates, nose normal. [] Eyes: PERRLA, EOMI, conjunctiva normal, no discharge. [] Neck: Normal range of motion, no tenderness, supple, no stridor. [] Cardiovascular:Heart rate regular rhythm, no murmur [] Lungs & Thorax: Bilateral breath sounds clear to auscultation [] Abdomen: Bowel sounds normal, soft, no tenderness, no masses, no pulsatile masses. [] Skin: Warm, dry, no erythema, no rash. [] Back: No tenderness, no CVA tenderness. [] Extremities: No tenderness, no cyanosis, no clubbing, ROM intact, no edema. [] Neurologic: Alert and oriented X 3, normal motor function, normal sensory function, no focal deficits noted. [] Psychologic: Affect normal, judgement normal, mood normal. [] Current Patient Data Vital Signs Vital Signs Date Time Temp Pulse Resp B/P Pulse Ox O2 Delivery O2 Flow Rate FiO2 09/07/16 12:45 18 97 Room Air 09/07/16 12:10 98.7 96 98.7 EKG EKG [] Radiology/Procedures Radiology/Procedures [] Course & Med Decision Making Course & Med Decision Making Pertinent Labs and Imaging studies reviewed. (See chart for details) Patient is in the ED with chronic pelvic pain, there is nothing unusual about her pain. She was discharged with instructions to follow-up with , she states she has an appointment in 3 weeks. Dragon Disclaimer Dragon Disclaimer This electronic medical record was generated, in whole or in part, using a voice recognition dictation system. Departure Departure Impression: Primary Impression: Pelvic pain Disposition: 01 HOME, SELF-CARE Condition: STABLE Referrals: ARPIT AGUILAR Jr, MD Follow-up with your doctor as soon as possible Patient Instructions: Abdominal Pain Additional Instructions: You were seen for chronic pelvic pain. Follow-up with Dr. Aguilar as soon as possible. Scripts Oxycodone/Apap 10-325 (Percocet 10-325 Mg Tablet)1 Each Tablet1 Tab PO Q4-6HRS # 20 TAB Prov:MAX BOO APRN 09/07/16 MAX BOO APRN Sep 07, 2016 12:59
[2016-09-07] MEDS ORDERED: OXYC-250 PO (13:07)
== END 2016-09-07 13:17 | disposition home or self-care (01) ==
LOC: ER 11:03
DX: G89.29 Other chronic pain (principal); R10.2 Pelvic and perineal pain; J45.909 Unspecified asthma, uncomplicated; Z91.040 Latex allergy status
CPT/HCPCS: 96372; 99283; J1170

== ENCOUNTER 2016-09-11 20:07 | Emergency (ER) | payer OTHER ==
[~2016-09-11] VITALS: Ht 152.4 cm; Wt 59.0 kg
[2016-09-11] MEDS ORDERED: HYDROMORPHONE 2 MG/ML VIAL. IM ONE (20:30)
[2016-09-11] MEDS ORDERED: OXYC-250 PO (20:36)
--- NOTE | 2016-09-11 20:36 | PHYS DOC ---
Past Medical History Past Medical History: Asthma, IBS, P.I.D. Additional Past Medical Histor: ulcer, endometriosis, Chronic R leg pain, Chronic Pelvic Pain Past Surgical History: Tonsillectomy, Other Additional Past Surgical Histo: right LOWER leg- compound fx Alcohol Use: None Drug Use: None Adult General Chief Complaint Chief Complaint: MEDICATION REFILL [facility] HPI Patient is a 26 year old female with history of chronic pelvic pain who presents today for her chronic pelvic pain. Patient states she has an appointment with Dr. Aguilar next month. Patient denies anything unusual about her pain today. Review of Systems Review of Systems Constitutional: Denies fever or chills [] Eyes: Denies change in visual acuity, redness, or eye pain [] HENT: Denies nasal congestion or sore throat [] Respiratory: Denies cough or shortness of breath [] Cardiovascular: No additional information not addressed in HPI [] GI: Chronic pelvic pain : Denies dysuria or hematuria [] Musculoskeletal: Denies back pain or joint pain [] Integument: Denies rash or skin lesions [] Neurologic: Denies headache, focal weakness or sensory changes [] Endocrine: Denies polyuria or polydipsia [] Current Medications Current Medications Current Medications Medications (Trade) Dose Ordered Sig/Luis Start Time Stop Time Status Last Admin Dose Admin Hydromorphone HCl (Dilaudid) 2 mg 1X ONCE 09/11/16 20:30 09/11/16 20:31 DC Allergies Allergies Allergies Coded Allergies Type Severity Reaction Last Updated Verified latex Allergy Severe Anaphylaxis 05/28/16 No Physical Exam Physical Exam Constitutional: Well developed, well nourished, no acute distress, non-toxic appearance. [] HENT: Normocephalic, atraumatic, bilateral external ears normal, oropharynx moist, no oral exudates, nose normal. [] Eyes: PERRLA, EOMI, conjunctiva normal, no discharge. [] Neck: Normal range of motion, no tenderness, supple, no stridor. [] Cardiovascular:Heart rate regular rhythm, no murmur [] Lungs & Thorax: Bilateral breath sounds clear to auscultation [] Abdomen: Bowel sounds normal, soft, no tenderness, no masses, no pulsatile masses. [] Skin: Warm, dry, no erythema, no rash. [] Back: No tenderness, no CVA tenderness. [] Extremities: No tenderness, no cyanosis, no clubbing, ROM intact, no edema. [] Neurologic: Alert and oriented X 3, normal motor function, normal sensory function, no focal deficits noted. [] Psychologic: Affect normal, judgement normal, mood normal. [] Current Patient Data Vital Signs Vital Signs Date Time Temp Pulse Resp B/P Pulse Ox O2 Delivery O2 Flow Rate FiO2 09/11/16 20:15 99.0 93 16 99 Room Air 99.0 EKG EKG [] Radiology/Procedures Radiology/Procedures [] Course & Med Decision Making Course & Med Decision Making Pertinent Labs and Imaging studies reviewed. (See chart for details) Patient is in the ED with chronic pelvic pain. She was reminded to consider not using the ED for her chronic pain. Follow-up with Dr. Aguilar next month. Dragon Disclaimer Kelsea Disclaimer This electronic medical record was generated, in whole or in part, using a voice recognition dictation system. Departure Departure Impression: Primary Impression: Chronic pelvic pain in female Disposition: HOME, SELF-CARE Condition: STABLE Referrals: NO PCP (PCP) ARPIT AGUILAR Jr, MD follow up with him next month Patient Instructions: Abdominal Pain Additional Instructions: You were seen for chronic pelvic pain. Follow-up with Dr. Aguilar as soon as possible. Consider not using the ED for chronic pain. Scripts Ondansetron (Zofran Odt)4 Mg Tab.rapdis1 Tab SL Q8HRS #15 TAB Prov:MAX BOO APRN 09/11/16 Oxycodone/Apap 10-325 (Percocet 10-325 Mg Tablet)1 Each Tablet1 Tab PO Q4-6HRS # 12 TAB Prov:MAX BOO APRN 09/11/16 MAX BOO APRN Sep 11, 2016 20:36
[2016-09-11 20:54] VITALS: BP 126/81
[2016-09-11] MEDS ORDERED: ONDA4TAB10 SL (20:54)
== END 2016-09-11 20:58 | disposition home or self-care (01) ==
LOC: ER 20:07
DX: R10.2 Pelvic and perineal pain (principal); G89.29 Other chronic pain; K58.9 Irritable bowel syndrome, unspecified; J45.909 Unspecified asthma, uncomplicated; Z91.040 Latex allergy status
CPT/HCPCS: 96372; 99283; J1170

== ENCOUNTER 2016-09-13 15:13 | Emergency (ER) | payer OTHER ==
[~2016-09-13] VITALS: Ht 152.4 cm; Wt 59.0 kg
[~2016-09-13 15:13] MED LIST changes: +ONDA4TAB10 SL
[2016-09-13 16:00] VITALS: BP 125/75
[2016-09-13] MEDS ORDERED: OXYCODONE/APAP 7.5/325 TABLET. PO ONE (16:15)
--- NOTE | 2016-09-13 16:18 | PHYS DOC ---
Past Medical History Past Medical History: Asthma, IBS, P.I.D. Additional Past Medical Histor: ulcer, endometriosis, Chronic R leg pain, Chronic Pelvic Pain Past Surgical History: Tonsillectomy, Other Additional Past Surgical Histo: right LOWER leg- compound fx Alcohol Use: None Drug Use: None Adult General Chief Complaint Chief Complaint: PAIN CONTROL [facility] HPI Patient is a 26 year old female presents to the emergency department with a history of left sided abdominal pain. Patient states she has chronic pelvic pain and has endometriosis. She states she his out of her pain medication and cannot function without her oxycodone. Patient states she normally sees Meagan when she comes to the emergency department as is given oxycodone 10. She states she has tried to call her PCP and [employer] [employer] without anyone calling her back. Patient states she cannot even have sex without having increase abdominal pain and excessive bleeding. Patient was noted to be here in the emergency department every 6-7 days for refill of her oxycodone. Review of Systems Review of Systems Constitutional: Denies fever or chills [] Eyes: Denies change in visual acuity, redness, or eye pain [] HENT: Denies nasal congestion or sore throat [] Respiratory: Denies cough or shortness of breath [] Cardiovascular: No additional information not addressed in HPI [] GI:left sided lower abdominal pain, denies nausea, vomiting, bloody stools or diarrhea [] : Denies dysuria or hematuria [] Musculoskeletal: Denies back pain or joint pain [] Integument: Denies rash or skin lesions [] Neurologic: Denies headache, focal weakness or sensory changes [] Current Medications Current Medications Current Medications Medications (Trade) Dose Ordered Sig/Luis Start Time Stop Time Status Last Admin Dose Admin Oxycodone/ Acetaminophen (Percocet 7.5/ 325) 1 tab 1X ONCE 09/13/16 16:15 09/13/16 16:16 DC 09/13/16 16:58 1 TAB Allergies Allergies Allergies Coded Allergies Type Severity Reaction Last Updated Verified latex Allergy Severe Anaphylaxis 05/28/16 No Physical Exam Physical Exam Constitutional: Well developed, well nourished, no acute distress, non-toxic appearance. [] HENT: Normocephalic, atraumatic, bilateral external ears normal, oropharynx moist, no oral exudates, nose normal. [] Eyes: PERRLA, EOMI, conjunctiva normal, no discharge. [] Neck: Normal range of motion, no tenderness, supple, no stridor. [] Cardiovascular:Heart rate regular rhythm, no murmur [] Lungs & Thorax: Bilateral breath sounds clear to auscultation [] Abdomen: Bowel sounds hypoactive, soft, left lower abdominal tenderness, no masses, no pulsatile masses. No rebound tenderness noted Skin: Warm, dry, no erythema, no rash. [] Back: No tenderness Extremities: No tenderness, no cyanosis, no clubbing, ROM intact, no edema. [] Neurologic: Alert and oriented X 3, normal motor function, normal sensory function, no focal deficits noted. [] Psychologic: Affect normal, judgement normal, mood normal. [] Current Patient Data Vital Signs Vital Signs Date Time Temp Pulse Resp B/P Pulse Ox O2 Delivery O2 Flow Rate FiO2 09/13/16 16:58 18 Room Air 09/13/16 16:00 99.0 96 98 99.0 EKG EKG [] Radiology/Procedures Radiology/Procedures REASON: pelvic pain hx endomet. PROCEDURE: PELVIS W/TV PROCEDURE Pelvic ultrasound to include transabdominal and transvaginal imaging 09/13/2026 HISTORY Left-sided pelvic pain. TECHNIQUE Using the distended urinary bladder as a sonographic window, a real-time ultrasound examination of the pelvis was performed. Additionally in an attempt to better evaluate the uterus and adnexa, a transvaginal ultrasound study was performed. Multiple images were obtained. FINDINGS Comparison study is dated 07/25/2016. The uterus is within normal limits in size. It is retroverted. It measures 9.1 x 5.8 x 4.8 centimeters in longitudinal, transverse, and AP dimensions. The endometrial echo complex measures 6 millimeters in thickness which is within normal limits. No focal abnormality of the uterus is seen. Both ovaries are within normal limits in size and echogenicity. The right ovary measures 3.1 x 2.7 x 1.2 centimeters in size. The left ovary measures 3.8 x 2.2 x 2.1 centimeters in size. No adnexal mass is seen. No free fluid is noted. IMPRESSION Negative study. Course & Med Decision Making Course & Med Decision Making Pertinent Labs and Imaging studies reviewed. (See chart for details) [address] Aguilar in response to the patient being here in the emergency department. Provided him with ultrasound results that the patient had been on 07/25/16. At that time patient has been seen since that time with Dr. Aguilar. He also states that she has not followed up with multiple office visits. He recommends that the ultrasound has not changed to have her follow up in the office next week. His recommendations as no further narcotic pain medication. 1630 Patient requesting Dilaudid IM prior to having an ultrasound. Explained to patient that she'll be provided with oxycodone for pain. Also explained to patient that unless there is any changes with her ultrasound she will not be provided with narcotic prescription at discharged. 1635 Ultrasound here for patient, she refuses to go to ultrasound as she has not received pain medication. 1650 Patient was provided with pain medication. Ultrasound was notified with patient taken to US via wheelchair. 1722 Report given to Dianne QUESADA who will continue with patients care. Ultrasound pending at this time. 1825 Pelvic ultrasound result does not show any acute abnormalities. The patient is discharged home with instructions to follow-up with Dr. Aguilar as previously scheduled on 09/17/16. She is again informed her that she will not be provided with narcotic prescription due to her chronic overuse of the emergency department for refills of her pain medication. Return precautions were discussed. She verbalizes understanding. Dragon Disclaimer Dragon Disclaimer This electronic medical record was generated, in whole or in part, using a voice recognition dictation system. Departure Departure Impression: Primary Impression: Medication refill Additional Impression: Chronic pelvic pain in female Disposition: 01 HOME, SELF-CARE Condition: STABLE Referrals: MENDY HILL MD (PCP) ARPIT AGUILAR Jr, MD Patient Instructions: Chronic Pain Management Additional Instructions: You were seen today for refill of your chronic pain medication. Your ultrasound does not show any abnormalities. You will not receive a prescription for narcotic medications. You need to follow -up with your primary care doctor or your director presales for refills of your chronic pain medication. Return to the emergency department if you have any new or concerning symptoms. Problem Qualifiers KEL VIVAS NP Sep 13, 2016 16:18 DIANNE HESTER Sep 13, 2016 18:27
--- NOTE | 2016-09-13 18:12 | RAD ---
PROCEDURE Pelvic ultrasound to include transabdominal and transvaginal imaging 09/13/2026 HISTORY Left-sided pelvic pain. TECHNIQUE Using the distended urinary bladder as a sonographic window, a real-time ultrasound examination of the pelvis was performed. Additionally in an attempt to better evaluate the uterus and adnexa, a transvaginal ultrasound study was performed. Multiple images were obtained. FINDINGS Comparison study is dated 07/25/2016. The uterus is within normal limits in size. It is retroverted. It measures 9.1 x 5.8 x 4.8 centimeters in longitudinal, transverse, and AP dimensions. The endometrial echo complex measures 6 millimeters in thickness which is within normal limits. No focal abnormality of the uterus is seen. Both ovaries are within normal limits in size and echogenicity. The right ovary measures 3.1 x 2.7 x 1.2 centimeters in size. The left ovary measures 3.8 x 2.2 x 2.1 centimeters in size. No adnexal mass is seen. No free fluid is noted. IMPRESSION Negative study. Electronically signed by: Julien Anderson MD (Sep 13, 2016 18:10:53)
== END 2016-09-13 18:39 | disposition home or self-care (01) ==
LOC: ER 15:13
DX: G89.29 Other chronic pain (principal); R10.2 Pelvic and perineal pain; J45.909 Unspecified asthma, uncomplicated; Z76.0 Encounter for issue of repeat prescription; Z91.040 Latex allergy status
CPT/HCPCS: 76830; 76856; 99284-25

== ENCOUNTER 2016-09-15 23:38 | Emergency (ER) | payer OTHER ==
[~2016-09-15] VITALS: Ht 152.4 cm; Wt 59.0 kg
[2016-09-15 23:51] VITALS: BP 157/68
[2016-09-16] MEDS ORDERED: KETOROLAC TROMETHAMINE 60 MG/2 ML SYRINGE. IM ONE (00:15)
--- NOTE | 2016-09-16 00:25 | PHYS DOC ---
Past Medical History Past Medical History: Asthma, IBS, P.I.D. Additional Past Medical Histor: ulcer, endometriosis, Chronic R leg pain, Chronic Pelvic Pain Past Surgical History: Tonsillectomy, Other Additional Past Surgical Histo: right LOWER leg- compound fx Alcohol Use: None Drug Use: None Adult General Chief Complaint Chief Complaint: GROIN PAIN HPI HPI Patient is a 26 year old female who presents here today complaining of an acute exacerbation of her chronic endometriosis pain. Patient reports that she' s had this pain multiple times in the past however normally the Percocet at home ulcer however the last couple days the pain has not been controlled with her Percocet so she is here hoping to obtain something stronger to help her pain. Patient reports that usually Dilaudid for discomfort. Patient has any other symptomatology at this time. Patient has any fevers shakes chills nausea vomiting diarrhea dysuria frequency or urgency. Patient reports her last period was approximately one week ago. Patient has a vaginal discharge. Patient presents with a history of asthma and a leg fracture in the past. Patient's physical exam was significant for tenderness palpation to her left suprapubic region. Patient has no rebound or guarding. Patient has no psoas or obturator signs. Patient has normal active bowel sounds. Patient is not exhibiting any signs or symptoms LB consistent with an acute surgical abdomen. I discussed with the patient that I would need a UA, urine test, and likely due to do a pelvic exam on her to further assess her discomfort. I discussed with the patient that we would go ahead and give her Toradol to assist her with her pain. Patient reports that Ultram does not help her so she is declined getting Ultram. I discussed with the patient that she will need to follow-up with her primary care physician as soon as possible for further assessment of her chronic endometriosis pain. Patient reports that she does have an appointment on September 17. I have been informed by the nursing staff that the patient has signed out AGAINST MEDICAL ADVICE. Patient's left the ER prior to further evaluation or discussion of all other options with me. Review of Systems Review of Systems Constitutional: Denies fever or chills [] Eyes: Denies change in visual acuity, redness, or eye pain [] HENT: Denies nasal congestion or sore throat [] All other review systems are negative except as documented in the history of present illness portion. Current Medications Current Medications Current Medications Medications (Trade) Dose Ordered Sig/Luis Start Time Stop Time Status Last Admin Dose Admin Ketorolac Tromethamine (Toradol Im) 60 mg 1X ONCE 09/16/16 00:15 09/16/16 00:16 DC Allergies Allergies Allergies Coded Allergies Type Severity Reaction Last Updated Verified latex Allergy Severe Anaphylaxis 05/28/16 No Physical Exam Physical Exam Constitutional: Well developed, well nourished, no acute distress, non-toxic appearance. [] HENT: Normocephalic, atraumatic, bilateral external ears normal, oropharynx moist, no oral exudates, nose normal. [] Eyes: PERRLA, EOMI, conjunctiva normal, no discharge. [] Neck: Normal range of motion, no tenderness, supple, no stridor. [] Cardiovascular:Heart rate regular rhythm, Lungs & Thorax: Bilateral breath sounds clear to auscultation [] Abdomen: Bowel sounds normal, soft Skin: Warm, dry, no erythema, no rash. [] Back: No tenderness, no CVA tenderness. [] Extremities: No tenderness, no cyanosis, no clubbing, ROM intact, no edema. [] Neurologic: Alert and oriented X 3, normal motor function, normal sensory function, no focal deficits noted. [] Psychologic: Affect normal, judgement normal, mood normal. [] Current Patient Data Vital Signs Vital Signs Date Time Temp Pulse Resp B/P Pulse Ox O2 Delivery O2 Flow Rate FiO2 09/15/16 23:51 98.7 60 22 98 Room Air 98.7 EKG EKG [] Radiology/Procedures Radiology/Procedures [] Course & Med Decision Making Course & Med Decision Making Pertinent Labs and Imaging studies reviewed. (See chart for details) [] Dragon Disclaimer Dragon Disclaimer This electronic medical record was generated, in whole or in part, using a voice recognition dictation system. Departure Departure Impression: Primary Impression: Chronic pelvic pain in female Additional Impression: Endometriosis Disposition: AGAINST MEDICAL ADVICE Condition: STABLE Referrals: MENDY HILL MD (PCP) Problem Qualifiers MENDY LIAO MD Sep 16, 2016 00:25
== END 2016-09-16 00:08 | disposition left against medical advice (07) ==
LOC: ER 23:38
DX: N80.9 Endometriosis, unspecified (principal); G89.29 Other chronic pain; R10.2 Pelvic and perineal pain; K58.9 Irritable bowel syndrome, unspecified; N73.9 Female pelvic inflammatory disease, unspecified; J45.909 Unspecified asthma, uncomplicated; Z87.19 Personal history of other diseases of the digestive system; Z91.040 Latex allergy status
CPT/HCPCS: 99281

== ENCOUNTER 2016-09-17 11:38 | Emergency (ER) | payer OTHER ==
[~2016-09-17] VITALS: Ht 152.4 cm; Wt 56.2 kg
[2016-09-17 11:55] VITALS: BP 147/91
[2016-09-17 12:15] LABS: BILIRUBIN,URINE NEGATIVE (NEG); GLUCOSE,URINE NEGATIVE (NEG); NITRITE,URINE NEGATIVE (NEG); PROTEIN,URINE NEGATIVE (NEG-TRACE); UROBILINOGEN,URINE 0.2 mg/dL (0.2 mg/dL)
--- NOTE | 2016-09-17 12:17 | PHYS DOC ---
Past Medical History Past Medical History: Asthma, IBS, P.I.D. Additional Past Medical Histor: ulcer, endometriosis, Chronic R leg pain, Chronic Pelvic Pain Past Surgical History: Tonsillectomy, Other Additional Past Surgical Histo: right LOWER leg- compound fx Alcohol Use: None Drug Use: None Adult General Chief Complaint Chief Complaint: MEDICATION REFILL HPI HPI 26 old female with chronic pelvic pain secondary to endometriosis. Patient has been seen multiple times in the last few days for her chronic pain and has left without prescriptions. She stated that she was following with her mva reactor operator and is trying Premarin but was not willing to fill her Percocet. Patient is requesting Percocet at this time. She denies any new symptoms with her chronic pelvic pain today. She denies any significant bleeding or discharge. She denies any fever or chills. Patient was last seen here on September 16 and left AGAINST MEDICAL ADVICE after she was declined Percocet prescription. Patient states she has not followed up with a mva reactor operator since that time. She states the mva reactor operator will not see her for the next several months. Review of Systems Review of Systems Constitutional: Denies fever or chills [] Eyes: Denies change in visual acuity, redness, or eye pain [] HENT: Denies nasal congestion or sore throat [] Respiratory: Denies cough or shortness of breath [] Cardiovascular: No additional information not addressed in HPI [] GI: Has abdominal pain, denies nausea, denies vomiting, denies bloody stools or diarrhea [] : Denies dysuria or hematuria [] Musculoskeletal: Denies back pain or joint pain [] Integument: Denies rash or skin lesions [] Neurologic: Denies headache, focal weakness or sensory changes [] Endocrine: Denies polyuria or polydipsia [] Allergies Allergies Allergies Coded Allergies Type Severity Reaction Last Updated Verified latex Allergy Severe Anaphylaxis 05/28/16 No Physical Exam Physical Exam Constitutional: Well developed, well nourished, no acute distress, non-toxic appearance. [] HENT: Normocephalic, atraumatic, bilateral external ears normal, oropharynx moist, no oral exudates, nose normal. [] Eyes: PERRLA, EOMI, conjunctiva normal, no discharge. [] Neck: Normal range of motion, no tenderness, supple, no stridor. [] Cardiovascular:Heart rate regular rhythm, no murmur [] Lungs & Thorax: Bilateral breath sounds clear to auscultation [] Abdomen: Bowel sounds normal, soft, suprapubic tenderness to palpation, no masses, no pulsatile masses. [] Skin: Warm, dry, no erythema, no rash. [] Back: No tenderness, no CVA tenderness. [] Extremities: No tenderness, no cyanosis, no clubbing, ROM intact, no edema. [] Neurologic: Alert and oriented X 3, normal motor function, normal sensory function, no focal deficits noted. [] Psychologic: Affect normal, judgement normal, mood normal. [] Current Patient Data Vital Signs Vital Signs Date Time Temp Pulse Resp B/P Pulse Ox O2 Delivery O2 Flow Rate FiO2 09/17/16 11:55 98.8 99 22 98 Room Air 98.8 Lab Values Laboratory Tests Test 09/17/16 11:57 POC Urine HCG, Qualitative Hcg negative (Negative) EKG EKG [] Radiology/Procedures Radiology/Procedures [] Course & Med Decision Making Course & Med Decision Making Pertinent Labs and Imaging studies reviewed. (See chart for details) This 26-year-old female who is here with chronic pelvic pain will be denied Percocet prescription as she is a chronic pain patient and is in need of pain specialist and gynecology follow-up. I counseled her at length that she is had multiple narcotic scripts for this already and she needs to follow with her mva reactor operator as instructed and continue taking her Premarin for her symptoms. Patient appears agitated upon hearing this but does understand and immediately wanted to leave after Percocet prescription was denied. She denied any new symptoms today with her chronic pain and there is no indication perform any laboratory workup at this time. Dragon Disclaimer Dragon Disclaimer This electronic medical record was generated, in whole or in part, using a voice recognition dictation system. Departure Departure Impression: Primary Impression: Pelvic pain Disposition: 01 HOME, SELF-CARE Condition: STABLE Referrals: MENDY HILL MD (PCP) Patient Instructions: Pelvic Exam Additional Instructions: Please follow up with your mva reactor operator as discussed. Return to the ER if you develop any new symptoms such as fever, bleeding, or discharge or worsening of your pain. NATALIO PAYAN DO Sep 17, 2016 12:17
[2016-09-17 12:27] LABS: BACTERIA,URINE FEW /HPF (0-FEW); RBC,URINE 0 /HPF (0-2); SQUAMOUS EPITHELIAL CELL,UR MANY /LPF
== END 2016-09-17 12:15 | disposition home or self-care (01) ==
LOC: ER 12:14
DX: G89.29 Other chronic pain (principal); R10.2 Pelvic and perineal pain; N73.9 Female pelvic inflammatory disease, unspecified; J45.909 Unspecified asthma, uncomplicated; K58.9 Irritable bowel syndrome, unspecified; Z91.040 Latex allergy status
CPT/HCPCS: 81001; 81025; 84703; 87086; 99284

== ENCOUNTER 2016-09-17 13:02 | Emergency (ER) | payer OTHER ==
[2016-09-17 11:55] VITALS: BP 147/91
--- NOTE | 2016-09-17 13:16 | PHYS DOC ---
Past Medical History Past Medical History: Asthma, IBS, P.I.D. Additional Past Medical Histor: ulcer, endometriosis, Chronic R leg pain, Chronic Pelvic Pain Past Surgical History: Tonsillectomy, Other Additional Past Surgical Histo: right LOWER leg- compound fx Alcohol Use: None Drug Use: None Adult General Chief Complaint Chief Complaint: MEDICATION REFILL HPI HPI Patient is a 26 year old who was seen in the ED a couple minutes ago for chronic pelvic pain and was trying to check back in to be seen specifically by me. She was informed she cannot case picker provider. She walked out. Review of Systems Review of Systems No physical exam was done because patient left Allergies Allergies Allergies Coded Allergies Type Severity Reaction Last Updated Verified latex Allergy Severe Anaphylaxis 05/28/16 No Physical Exam Physical Exam No physical exam was done because patient left EKG EKG [] Radiology/Procedures Radiology/Procedures [] Course & Med Decision Making Course & Med Decision Making Pertinent Labs and Imaging studies reviewed. (See chart for details) Patient is a 26 year old who was seen in the ED a couple minutes ago for chronic pelvic pain and was trying to check back in to be seen specifically by me. She was informed she cannot case picker provider. She walked out. Dragon Disclaimer Dragon Disclaimer This electronic medical record was generated, in whole or in part, using a voice recognition dictation system. Departure Departure Impression: Primary Impression: Chronic pelvic pain in female Disposition: 01 HOME, SELF-CARE Condition: STABLE Referrals: MENDY HILL MD (PCP) MAX BOO APRN Sep 17, 2016 13:16
== END 2016-09-17 13:34 | disposition left against medical advice (07) ==
LOC: ER 13:02
DX: G89.29 Other chronic pain (principal); J45.909 Unspecified asthma, uncomplicated; K58.9 Irritable bowel syndrome, unspecified; N73.9 Female pelvic inflammatory disease, unspecified; Z91.040 Latex allergy status; Z53.21 Procedure and treatment not carried out due to patient leaving prior to being seen by health care provider

== ENCOUNTER 2016-09-17 14:39 | Emergency (ER) | payer OTHER ==
[~2016-09-17] VITALS: Ht 152.4 cm; Wt 56.2 kg
[2016-09-17 14:55] VITALS: BP 132/84
--- NOTE | 2016-09-17 15:11 | PHYS DOC ---
Past Medical History Past Medical History: Asthma, IBS, P.I.D. Additional Past Medical Histor: ulcer, endometriosis, Chronic R leg pain, Chronic Pelvic Pain Past Surgical History: Tonsillectomy, Other Additional Past Surgical Histo: right LOWER leg- compound fx Alcohol Use: None Drug Use: None Adult General Chief Complaint Chief Complaint: MEDICATION REFILL [facility] HPI Patient is a 26 year old patient with history of chronic pelvic pain presents today for her chronic pelvic pain. She was seen earlier in the ED today and discharge. She states she is here for oxycodone refill. Patient states there is nothing unusual about her pain today Review of Systems Review of Systems Constitutional: Denies fever or chills [] Eyes: Denies change in visual acuity, redness, or eye pain [] HENT: Denies nasal congestion or sore throat [] Respiratory: Denies cough or shortness of breath [] Cardiovascular: No additional information not addressed in HPI [] GI: Chronic pelvic pain : Denies dysuria or hematuria [] Musculoskeletal: Denies back pain or joint pain [] Integument: Denies rash or skin lesions [] Neurologic: Denies headache, focal weakness or sensory changes [] Endocrine: Denies polyuria or polydipsia [] Allergies Allergies Allergies Coded Allergies Type Severity Reaction Last Updated Verified latex Allergy Severe Anaphylaxis 05/28/16 No Physical Exam Physical Exam Constitutional: Well developed, well nourished, no acute distress, non-toxic appearance. [] HENT: Normocephalic, atraumatic, bilateral external ears normal, oropharynx moist, no oral exudates, nose normal. [] Eyes: PERRLA, EOMI, conjunctiva normal, no discharge. [] Neck: Normal range of motion, no tenderness, supple, no stridor. [] Cardiovascular:Heart rate regular rhythm, no murmur [] Lungs & Thorax: Bilateral breath sounds clear to auscultation [] Abdomen: Bowel sounds normal, soft, no masses, no pulsatile masses. Pelvic exam differed. Skin: Warm, dry, no erythema, no rash. [] Back: No tenderness, no CVA tenderness. [] Extremities: No tenderness, no cyanosis, no clubbing, ROM intact, no edema. [] Neurologic: Alert and oriented X 3, normal motor function, normal sensory function, no focal deficits noted. [] Psychologic: Affect normal, judgement normal, mood normal. [] Current Patient Data Vital Signs Vital Signs Date Time Temp Pulse Resp B/P Pulse Ox O2 Delivery O2 Flow Rate FiO2 09/17/16 14:55 98.9 94 20 99 Room Air 98.9 EKG EKG [] Radiology/Procedures Radiology/Procedures [] Course & Med Decision Making Course & Med Decision Making Pertinent Labs and Imaging studies reviewed. (See chart for details) Patient is in the ED with chronic pelvic pain. He is known to this ED for her chronic pain. There is nothing unusual about her pain today. Patient was seen earlier this morning the ED. 15:00 spoke with patient's DESK REPRESENTATIVE doctor Lauren who stated patient was seen in the office today for her pain. He stated he used to give patient oxycodone but patient was noted to get prescriptions from other providers so he had to stop giving her pain medicines. I spoke to patient about this behavior. Informed patient i highly recommended she follows up with the pain clinic because her pain is chronic at this point and i will not give her anything in the ED. Provided patient Dr. Saturnino Akers phone number for follow up . Dragon Disclaimer Kelsea Disclaimer This electronic medical record was generated, in whole or in part, using a voice recognition dictation system. Departure Departure Impression: Primary Impression: Chronic pelvic pain in female Additional Impression: Narcotic dependence Disposition: 01 HOME, SELF-CARE Condition: STABLE Referrals: MENDY HILL MD (PCP) ELLIE AKERS MD Please call his office and follow up as soon as possible Patient Instructions: Pelvic Pain, Female Additional Instructions: You were seen for chronic pelvic pain. Please call Dr. Ellie Akers at the pain clinic and follow up as soon as possible. His number is [phone] Problem Qualifiers MAX BOO TORI Sep 17, 2016 15:11
== END 2016-09-17 15:17 | disposition home or self-care (01) ==
LOC: ER 14:39
DX: G89.29 Other chronic pain (principal); R10.2 Pelvic and perineal pain; F17.200 Nicotine dependence, unspecified, uncomplicated; J45.909 Unspecified asthma, uncomplicated; K58.9 Irritable bowel syndrome, unspecified; Z91.040 Latex allergy status
CPT/HCPCS: 99281

== ENCOUNTER 2016-12-01 13:09 | Emergency (ER) | payer OTHER ==
[~2016-12-01] VITALS: Ht 152.4 cm; Wt 54.0 kg
[2016-12-01 13:21] VITALS: BP 118/80
--- NOTE | 2016-12-01 13:34 | PHYS DOC ---
Past Medical History Past Medical History: Asthma, IBS, P.I.D. Additional Past Medical Histor: ulcer, endometriosis, Chronic R leg pain, Chronic Pelvic Pain Past Surgical History: Tonsillectomy, Other Additional Past Surgical Histo: right LOWER leg- compound fx Alcohol Use: None Drug Use: None Adult General Chief Complaint Chief Complaint: ABDOMINAL PAIN HPI HPI Patient is a 26 year old female presents emergency department stating that she is having her pelvic pain which is normal for pain. She states that she is also been having some nausea and vomiting that comes and goes. She states her pain is no different than any other day. She does state however she is out of her Percocet and would like to have a refill. She states that she went over to Dr. Baez office to be seen at noon and they were leaving for lunch and would not be back to 1:00. She also states that they told her that the physicians would not be back until 2:00. Patient denies any vaginal discharge she denies any fever, chills or diarrhea. Review of Systems Review of Systems Constitutional: Denies fever or chills [] Eyes: Denies change in visual acuity, redness, or eye pain [] HENT: Denies nasal congestion or sore throat [] Respiratory: Denies cough or shortness of breath [] Cardiovascular: No additional information not addressed in HPI [] GI: Denies abdominal pain, nausea, vomiting, bloody stools or diarrhea [] : Denies dysuria or hematuria. C/o pelvic Musculoskeletal: Denies back pain or joint pain [] Integument: Denies rash or skin lesions [] Neurologic: Denies headache, focal weakness or sensory changes [] Endocrine: Denies polyuria or polydipsia [] Allergies Allergies Allergies Coded Allergies Type Severity Reaction Last Updated Verified latex Allergy Severe Anaphylaxis 05/28/16 No Physical Exam Physical Exam Constitutional: Well developed, well nourished, no acute distress, non-toxic appearance. [] HENT: Normocephalic, atraumatic, bilateral external ears normal, oropharynx moist, no oral exudates, nose normal. [] Eyes: PERRLA, EOMI, conjunctiva normal, no discharge. [] Neck: Normal range of motion, no tenderness, supple, no stridor. [] Cardiovascular:Heart rate regular rhythm, no murmur [] Lungs & Thorax: Bilateral breath sounds clear to auscultation [] Abdomen: Bowel sounds normal, soft, no tenderness, no masses, no pulsatile masses. [] Skin: Warm, dry, no erythema, no rash. [] Back: No tenderness Extremities: No tenderness, no cyanosis, no clubbing, ROM intact, no edema. [] Neurologic: Alert and oriented X 3, normal motor function, normal sensory function, no focal deficits noted. [] Psychologic: Affect normal, judgement normal, mood normal. [] Current Patient Data Vital Signs Vital Signs Date Time Temp Pulse Resp B/P (MAP) Pulse Ox O2 Delivery O2 Flow Rate FiO2 12/01/16 13:21 98.9 112 19 118/80 (93) 98 Room Air 98.9 EKG EKG [] Radiology/Procedures Radiology/Procedures [] Course & Med Decision Making Course & Med Decision Making Pertinent Labs and Imaging studies reviewed. (See chart for details) Spoke with patient in regards to pain medication. She had seen Dr. Baez on 11/23 and received a prescription for Percocet 10 which she obtained 45 tablets which should've lasted her for 14 days. Patient stated to me that she had ran out of her Percocet approximately 4-5 days ago. She states that she had notify Dr. Bang office and he had recommended that she use ibuprofen or naproxen and between to help with the pain and discomfort. Patient states she did try this although it did not help. Patient states she had gone over to his office at noon today and was told that they were going to watch him that they would be back at 1 over the physicians would not be back tilt 2. Patient thought she would come to the emergency department and see if she can obtain some Percocet. After talking with patient she has chosen to follow up at the doctor's office which will be opened and approximately 30 minutes. Patient states that she has surgery on the of this month here at the facility. Patient agrees that following up with Dr. Baez is probably the best option at this point as the emergency department does not refill narcotic pain medication prescriptions. Patient was provided with discharge instructions although asked if it was okay if she left prior to receiving the written instructions as she did not feel that this was pertinent at this time. [] Dragon Disclaimer Dragon Disclaimer This electronic medical record was generated, in whole or in part, using a voice recognition dictation system. Departure Departure Impression: Primary Impression: Chronic pelvic pain in female Disposition: 01 HOME, SELF-CARE Condition: STABLE Referrals: ARPIT BAEZ Jr, MD (PCP) Patient Instructions: Pelvic Pain, Female, [id number] Additional Instructions: Follow-up with in regards to further pain control Keep your appointment next week for your surgery Return to emergency department as needed for signs and symptoms that become worse. KEL VIVAS HEEL SANDER RUBBER December 01, 2016 13:34
== END 2016-12-01 13:30 | disposition home or self-care (01) ==
LOC: ER 13:09
DX: G89.29 Other chronic pain (principal); R10.2 Pelvic and perineal pain; R11.2 Nausea with vomiting, unspecified; J45.909 Unspecified asthma, uncomplicated; K58.9 Irritable bowel syndrome, unspecified; N73.9 Female pelvic inflammatory disease, unspecified; Z98.890 Other specified postprocedural states; Z91.040 Latex allergy status
CPT/HCPCS: 99281

== ENCOUNTER 2016-12-06 12:46 | Emergency (ER) | payer OTHER ==
[~2016-12-06] VITALS: Ht 152.4 cm; Wt 54.0 kg
[2016-12-06 12:56] VITALS: BP 127/74
[2016-12-06] MEDS ORDERED: oxyCODONE/APAP 7.5/325 1 TAB TABLET PO ONE (14:00)
[2016-12-06 14:19] LABS: BILIRUBIN,URINE NEGATIVE (NEG); GLUCOSE,URINE NEGATIVE (NEG); NITRITE,URINE NEGATIVE (NEG); PH,URINE 5.5; PROTEIN,URINE 100 mg/dL (NEG-TRACE); UROBILINOGEN,URINE 0.2 mg/dL (0.2 mg/dL)
[2016-12-06] MEDS ORDERED: OXYC-244 PO (14:34)
--- NOTE | 2016-12-06 14:35 | PHYS DOC ---
Past Medical History Past Medical History: Asthma, IBS, P.I.D. Additional Past Medical Histor: ulcer, endometriosis, Chronic R leg pain, Chronic Pelvic Pain Past Surgical History: Tonsillectomy, Other Additional Past Surgical Histo: right LOWER leg- compound fx Alcohol Use: None Drug Use: None Adult General Chief Complaint Chief Complaint: ABDOMINAL PAIN [facility] HPI Patient is a 26 year old female who presents with complaint of pelvic pain. Patient states that her pain is in her left side. Patient has history of endometriosis and states that she commonly gets pain in this area. Patient also notes that she has been having pain in her lower back. Patient states that she follows with Dr. Aguilar of [facility]. Patient states that she is supposed to have laparoscopy in [address] Aguilar. Patient states to control her pain she has been on oral Percocet. Patient states that she ran out of this medication a few days ago. The patient has come to the emergency department for pain control. She denies any other associated symptoms including fevers, nausea, vomiting, or urinary symptoms. Patient's last menstrual period was at "the beginning of this month." Patient rates pain as 7 out of 10 currently. Review of Systems Review of Systems Constitutional: Denies fever or chills [] HENT: Denies nasal congestion or sore throat [] Respiratory: Denies cough or shortness of breath [] Cardiovascular: No additional information not addressed in HPI [] GI: Denies abdominal pain, nausea, vomiting, bloody stools or diarrhea [] : Pelvic pain [] Musculoskeletal: Back pain [] Integument: Denies rash or skin lesions [] Neurologic: Denies headache, focal weakness or sensory changes [] Current Medications Current Medications Current Medications Medications (Trade) Dose Ordered Sig/[facility] Start Time Stop Time Status Last Admin Dose Admin Oxycodone/ Acetaminophen (Percocet 7.5/ 325) 1 tab 1X ONCE 12/06/16 14:00 12/06/16 14:01 DC 12/06/16 14:20 1 TAB Allergies Allergies Allergies Coded Allergies Type Severity Reaction Last Updated Verified latex Allergy Severe Anaphylaxis 05/28/16 No Physical Exam Physical Exam Constitutional: Alert, afebrile, appears in mild discomfort. [] HENT: Normocephalic, atraumatic, bilateral external ears normal, oropharynx moist, no oral exudates, nose normal. [] Eyes: PERRLA, EOMI, conjunctiva normal, no discharge. [] Neck: Normal range of motion, no tenderness, supple, no stridor. [] Cardiovascular:Heart rate regular rhythm, no murmur [] Lungs & Thorax: Bilateral breath sounds clear to auscultation [] Abdomen: Bowel sounds normal, soft, no tenderness, no masses, no pulsatile masses. [] Skin: Warm, dry, no erythema, no rash. [] Back: No tenderness, no CVA tenderness. [] Extremities: Left lower lumbar paraspinous muscle tenderness to palpation, no cyanosis, no clubbing, ROM intact, no edema. [] Neurologic: Alert and oriented X 3, normal motor function, normal sensory function, no focal deficits noted. [] Current Patient Data Vital Signs Vital Signs Date Time Temp Pulse Resp B/P (MAP) Pulse Ox O2 Delivery O2 Flow Rate FiO2 12/06/16 14:20 Room Air 12/06/16 12:56 98.4 75 14 127/74 (91) 99 98.4 Lab Values Laboratory Tests Test 12/06/16 12:13 12/06/16 13:00 POC Urine HCG, Qualitative Hcg negative (Negative) Urine Color Yellow Urine Clarity Clear Urine pH 5.5 Urine Specific [place] 1.025 Urine Protein 100 mg/dL (NEG-TRACE) Urine Glucose (UA) Negative mg/dL (NEG) Urine Ketones (Stick) Negative mg/dL (NEG) Urine Blood Trace (NEG) Urine Nitrite Negative (NEG) Urine Bilirubin Negative (NEG) Urine Urobilinogen Dipstick 0.2 mg/dL (0.2 mg/dL) Urine Leukocyte Esterase Small (NEG) Urine RBC Occ /HPF (0-2) Urine WBC 5-10 /HPF (0-4) Urine Squamous Epithelial Cells Occ /LPF Urine Bacteria Few /HPF (0-FEW) Urine Mucus Mod /LPF EKG EKG Not performed [] Radiology/Procedures Radiology/Procedures Not performed [] Course & Med Decision Making Course & Med Decision Making Pertinent Labs and Imaging studies reviewed. (See chart for details) Patient's vital signs are stable. The patient was given oral Percocet in the emergency department. Patient's UA appears contaminated and does not show convincing evidence for infection. After speaking with the patient I have agreed to give her 10 pills of Percocet to cover for the next 3 days until she sees Dr. Patiño. I did explain that any further pain medication prescriptions would need to be written by Dr. Aguilar or under the care of a depilatory painter after today's visit for treatment of chronic pain. Advised return emergency department for any worsening symptoms. Patient voiced understanding and in agreement with treatment plan. Dragon Disclaimer Dragon Disclaimer This electronic medical record was generated, in whole or in part, using a voice recognition dictation system. Departure Departure Impression: Primary Impression: Chronic pelvic pain in female Disposition: HOME, SELF-CARE Condition: IMPROVED Referrals: ARPIT AGUILAR Jr, MD (PCP) Patient Instructions: Chronic Pain Additional Instructions: Follow-up with Dr. Aguilar as scheduled in 3 days for your procedure. Return to the emergency department for any worsening symptoms. Scripts Oxycodone/Apap 7.5-325 (PERCOCET 7.5-325 MG TABLET) 1 Each Tablet 1 TAB PO Q6HRS Y for PAIN, #10 TAB 0 Refills Prov: GISELE BROWNING MD 12/06/16 GISELE BROWNING MD December 06, 2016 14:35
[2016-12-06 14:50] LABS: BACTERIA,URINE FEW /HPF (0-FEW); RBC,URINE OCC /HPF (0-2); SQUAMOUS EPITHELIAL CELL,UR OCC /LPF
[2016-12-13] MEDS ORDERED: OXYC-244 PO (11:39)
== END 2016-12-06 14:43 | disposition home or self-care (01) ==
LOC: ER 12:46
DX: G89.29 Other chronic pain (principal); R10.2 Pelvic and perineal pain; M54.5 Low back pain; K58.9 Irritable bowel syndrome, unspecified; N73.9 Female pelvic inflammatory disease, unspecified; J45.909 Unspecified asthma, uncomplicated; Z91.040 Latex allergy status
CPT/HCPCS: 81001; 81025; 87086; 99284

== ENCOUNTER 2016-12-09 07:58 | Day surgery (SDC) | payer OTHER ==
[~2016-12-09] VITALS: Ht 152.4 cm; Wt 54.0 kg
[~2016-12-09 07:58] MED LIST changes: +DEXAMETHASONE SOD PHOS 20 MG/5 ML VIAL. ONE; +HYDROmorphone 2 MG/ML VIAL IV PRN; +IV RINGERS,LACTATED 1000ML 1,000 ML IV SCH; +LIDOCAINE 1% 1 ML SYRINGE. ID PRN; +LIDOCAINE 2% PF Vial for OR 5 ML VIAL. ONE; +MORPHINE SULFATE 2 MG/ML DISP.SYRIN. IV PRN; +ONDANSETRON PF 4 MG/2 ML VIAL. IV PRN; +ONDANSETRON PF 4 MG/2 ML VIAL. ONE; +PROCHLORPERAZINE 10 MG/2 ML VIAL. IV PRN; +PROPOFOL 20 ML IV ONE; +ROCURONIUM 50 MG/5 ML VIAL. ONE; +fentaNYL PF VIAL 100 MCG/2 ML VIAL IV PRN; +fentaNYL PF VIAL 100 MCG/2 ML VIAL ONE
[2016-12-09 08:34] LABS: NEG OBC UR NEG; POS OBC UR POS
[2016-12-09] MEDS ORDERED: BUPIVACAINE-EPI 0.25%-1:200000 MPF 30 ML VIAL. ONE (09:09)
[2016-12-09] MEDS ORDERED: SURGICEL HEMOSTAT 4X8 EACH. ONE (09:09)
[2016-12-09] MEDS ORDERED: MIDAZOLAM HCL/PF 2 MG/2 ML VIAL. ONE (09:51)
[2016-12-09] MEDS ORDERED: FAMOTIDINE 20 MG/2 ML VIAL ONE ×2 (09:52→10:53)
[2016-12-09] MEDS ORDERED: KETOROLAC 30 MG/ML INJ FOR OR. INJ ONE (09:53)
[2016-12-09] MEDS ORDERED: fentaNYL PF VIAL 100 MCG/2 ML VIAL ONE (10:53)
[2016-12-09] MEDS ORDERED: GLYCOPYRROLATE 1 MG/5 ML VIAL. ONE (10:55)
[2016-12-09] MEDS ORDERED: DESFLURANE 31 TO 60 MINUTES IH ONE (11:08)
--- NOTE | 2016-12-09 11:23 | PDOC ---
BRIEF OPERATIVE NOTE Pre-Op Diagnosis Chronic Pelvic Pain Post-Op Diagnosis SAme + Endometriosis Procedure Performed [facility] Resection Endometriosis Surgeon Dr. Aguilar Anesthesia Type: General Blood Loss 10 ml Specimens Obtained Peritoneal biopsy from posterior culde sac, Right pelvic side wall and Right round ligament peritoneum Findings Endometriosis in areas of posterior culde sac, Left pelvic side wall, and Left round ligament peritoneum; nml size uterus, nml fallopian tubes and ovaries fatoumata. Complications none Additional Remarks pt. ARPIT Cohen Jr, MD December 09, 2016 11:23
--- NOTE | 2016-12-09 11:24 | DISCH ---
DISCHARGE INSTRUCTIONS Condition on Discharge Condition on Discharge: Stable Activity After Discharge Activity Instructions for Disc: Activity as tolerated Lifting Instructions after Dis: No heavy lifting Driving Instructions after Dis: Do not drive Diet after Discharge Diet after Discharge: Regular Contacting the DRNora after DC Call your doctor for: Concerns you may have Follow-Up Follow up with: Dr. Aguilar in 1 week. ARPIT AGUILAR Jr, MD December 09, 2016 11:23
[2016-12-09] MEDS: fentaNYL PF VIAL 100 MCG/2 ML VIAL IV PRN ×2 (11:32→11:44)
[2016-12-09] MEDS ORDERED: oxyCODONE/APAP 7.5/325 1 TAB TABLET PO PRN ×2 (11:45)
[2016-12-09 12:16] VITALS: BP 104/52
--- NOTE | 2016-12-09 15:07 | OP ---
DATE OF SURGERY: 12/09/2016 PREOPERATIVE DIAGNOSIS: Chronic pelvic pain. POSTOPERATIVE DIAGNOSES: Chronic pelvic pain plus endometriosis. PROCEDURE: Laparoscopic resection of endometriosis. SURGEON: Arpit Aguilar MD ANESTHESIA: GETA. ESTIMATED BLOOD LOSS: 10 mL. COMPLICATIONS: None. FINDINGS: Endometriosis in the areas of the posterior cul-de-sac, right pelvic succinate, left pelvic sidewall and left round ligament, normal size uterus, normal fallopian tubes and ovaries bilaterally. SUMMARY: A 26-year-old patient with chronic pelvic pain unresponsive to pain medication. The patient was counseled on risks, benefits and expectations of laparoscopic surgery for possible resection of endometriosis. She voiced clear understanding to proceed. DESCRIPTION OF PROCEDURE: The patient was taken to surgery suite and placed in dorsal lithotomy position where she was prepped with Betadine solution for vaginal prep and ChloraPrep for abdominal prep. After adequate anesthesia, a bivalve speculum was placed vaginally. The anterior lip of the cervix grasped with single tooth tenaculum. The uterine acorn manipulator was then placed. The bivalve speculum was removed. Attention was now placed on abdomen. Small transverse skin incision was made with scalpel just below the umbilicus. The Veress needle was then placed through the infraumbilical incision site. The abdomen was allowed to insufflate up to 1-1/2 liters CO2 gas. The Veress needle was then removed, 5 mm trocar was placed. Scope was positioned. The uterus appeared normal size. Fallopian tubes, ovaries appeared normal. There was evidence of endometriosis in the posterior cul-de-sac and the left pelvic sidewall as well as the left peritoneal region by the round ligament. These areas were resected with the aid of the EndoShears with cautery due to some oozing of the peritoneum from the biopsy sites in the left pelvic sidewall. Gertrudis was placed for good hemostasis. Suction irrigation was utilized to verify good hemostasis as well a small amount of normal saline was left in the posterior cul-de-sac. The trocars were then removed under direct visualization. The abdomen was allowed to deflate as much as possible along with mechanical manipulation. The 3 skin incisions were reapproximated using 4-0 Vicryl suture in subcuticular manner. A 0.25% Marcaine with epinephrine was injected at each incision site. The uterine acorn manipulator and single tooth tenaculum were removed. The patient tolerated the procedure well and was taken to recovery room in stable condition. Sponge and needle counts correct x 3. ARPIT AGUILAR MD DR: DUC/yesenia JOB#: [id number] / [id number]
== END 2016-12-09 12:57 | disposition home or self-care (01) ==
LOC: SURG 07:58
PROVIDERS: ATTEND Obstetrics & Gynecology
DX: N80.3 Endometriosis of pelvic peritoneum (principal); J45.909 Unspecified asthma, uncomplicated; F32.9 Major depressive disorder, single episode, unspecified; F41.9 Anxiety disorder, unspecified; F17.200 Nicotine dependence, unspecified, uncomplicated; Z80.8 Family history of malignant neoplasm of other organs or systems
CPT/HCPCS: 58662; 81025; A4215; J0690; J0780; J1100; J2250; J2405; J2704; J3010; J3490; J7030; J7120; S0028; J1885

== ENCOUNTER 2016-12-12 16:13 | Observation (INO) | payer OTHER ==
[~2016-12-12] VITALS: Ht 160 cm; Wt 54.0 kg
[~2016-12-12 16:13] MED LIST changes: -DEXAMETHASONE SOD PHOS 20 MG/5 ML VIAL. ONE; -HYDROmorphone 2 MG/ML VIAL IV PRN; -IV RINGERS,LACTATED 1000ML 1,000 ML IV SCH; -LIDOCAINE 1% 1 ML SYRINGE. ID PRN; -LIDOCAINE 2% PF Vial for OR 5 ML VIAL. ONE; -MORPHINE SULFATE 2 MG/ML DISP.SYRIN. IV PRN; -ONDANSETRON PF 4 MG/2 ML VIAL. IV PRN; -ONDANSETRON PF 4 MG/2 ML VIAL. ONE; -PROCHLORPERAZINE 10 MG/2 ML VIAL. IV PRN; -PROPOFOL 20 ML IV ONE; -ROCURONIUM 50 MG/5 ML VIAL. ONE; -fentaNYL PF VIAL 100 MCG/2 ML VIAL IV PRN; -fentaNYL PF VIAL 100 MCG/2 ML VIAL ONE
[2016-12-12] MEDS ORDERED: ONDANSETRON PF 4 MG/2 ML VIAL. IV PRN ×3 (18:15→23:00)
[2016-12-12] MEDS ORDERED: IV NORMAL SALINE 500ML BAG 500 ML IV ONE (18:15)
[2016-12-12 18:25] LABS: BILIRUBIN,URINE NEGATIVE (NEG); GLUCOSE,URINE NEGATIVE (NEG); NITRITE,URINE NEGATIVE (NEG); PROTEIN,URINE NEGATIVE (NEG-TRACE); UROBILINOGEN,URINE 0.2 mg/dL (0.2 mg/dL)
[2016-12-12 18:35] LABS: BACTERIA,URINE FEW /HPF (0-FEW); RBC,URINE 0 /HPF (0-2)
[2016-12-12 18:36] LABS: SQUAMOUS EPITHELIAL CELL,UR MOD /LPF
[2016-12-12] MEDS: HYDROmorphone 2 MG/ML VIAL IV PRN ×3 (18:37→20:20)
[2016-12-12 19:08] LABS: BASO % 0 % (0-3); EOS % 6 % (0-3); HEMATOCRIT 38.7 % (36.0-47.0); HEMOGLOBIN 12.9 g/dL (12.0-15.5); LYMPH # 2.7 x10^3/uL (1.0-4.8); LYMPH % 38 % (24-48); MEAN CORPUSCULAR HEMOGLOBIN 31 pg (25-35); MEAN CORPUSCULAR HGB CONC 33 g/dL (31-37); MEAN CORPUSCULAR VOLUME 93 fL (79-100); MONO % 7 % (0-9); NEUT % 49 % (31-73); PLATELET COUNT 231 x10^3/uL (140-400); RED BLOOD COUNT 4.19 x10^6/uL (3.50-5.40); RED CELL DISTRIBUTION WIDTH 13.3 % (11.5-14.5); WHITE BLOOD COUNT 7.3 x10^3/uL (4.0-11.0)
[2016-12-12 19:17] LABS: CALCIUM 8.7 mg/dL (8.5-10.1); CREATININE 0.6 mg/dL (0.6-1.0); GFR 148.6; POTASSIUM 3.6 mmol/L (3.5-5.1)
--- NOTE | 2016-12-12 19:21 | RAD ---
CT Abdomen and Pelvis without contrast History: Abdominal pain after laparoscopic procedure Technique: Noncontrast CT imaging was performed of the abdomen and pelvis. Multiplanar images are reviewed. Exposure: One or more of the following individualized dose reduction techniques were utilized for this examination: 1. Automated exposure control 2. Adjustment of the mA and/or kV according to patient size 3. Use of iterative reconstruction technique. Comparison: May 26, 2016 Findings: There is no significant abnormality of the limited visualized lung bases. There is pneumoperitoneum. There are 2 small right renal calculi, largest superiorly 2-3 mm. There is no significant hydronephrosis of either kidney. Accurate evaluation of the abdominal visceral organs is limited without intravenous contrast, no obvious focal abnormality of the liver, spleen, pancreas. Gallbladder is present without obvious intraluminal abnormality by CT. There is likely small quantity of free fluid in the pelvis poorly characterizedwithout any contrast and also due to the paucity of intrapelvic fat. Accurate evaluation of bowel is limited without oral contrast and paucity of intra-abdominal and intrapelvic fat. Appendix caliber is upper limits of normal 0.6 cm, no significant adjacent inflammatory-type change, mild hyperdensity in the lumen could be due to hyperdense stool although appendicolith difficult to exclude. There is some fullness of the parametrial regions although grossly unchanged appearance. Impression: 1. There is pneumoperitoneum although history of recent procedure in the last 2 days. Accurate evaluation for perforated viscus would be very limited. There is apparently a small quantity of nonspecific dependent free fluid in the pelvis. 2. There are small nonobstructive right renal calculi. 3. Appendix caliber is upper limits of normal although no significant adjacent inflammatory-type change. There is mild hyperdensity in the lumen, could be due to appendicolith versus stool. FOR INTERNAL CODING PURPOSES Critical result: Findings discussed with Dr. Guillen in the emergency department at 12/12/2016 7:17 PM. RESULT CODE: (C) Electronically signed by: Sacha Kuhn MD (12/12/2016 7:18 PM)
[2016-12-12 19:22] LABS: ALBUMIN 3.6 g/dL (3.4-5.0); ALBUMIN/GLOBULIN RATIO 1.1 (1.0-1.7); TOTAL BILIRUBIN 0.3 mg/dL (0.2-1.0); TOTAL PROTEIN 6.9 g/dL (6.4-8.2)
--- NOTE | 2016-12-12 20:28 | PHYS DOC ---
Past Medical History Past Medical History: Asthma, IBS, P.I.D. Additional Past Medical Histor: ulcer, endometriosis, Chronic R leg pain, Chronic Pelvic Pain Past Surgical History: Tonsillectomy, Other Additional Past Surgical Histo: right LOWER leg- compound fx Alcohol Use: None Drug Use: None Adult General Chief Complaint Chief Complaint: POST-OP PROBLEM HPI HPI 26-year-old female presenting to the emergency department today with pain in her abdomen. Her abdominal pain is sharp moderate nonradiating intermittent and without alleviating factors. She had laparoscopic surgery for endometriosis via our gynecologists 2 days ago. Review systems was negative for chest pain shortness of breath fevers chills nausea or vomiting. All other review of systems is negative unless otherwise noted in history of present illness. Review of Systems Review of Systems SEE ABOVE. Current Medications Current Medications Current Medications Medications (Trade) Dose Ordered Sig/[facility] Start Time Stop Time Status Last Admin Dose Admin Hydromorphone HCl (Dilaudid) 0.5 mg PRN Q1HR PRN 12/12/16 18:15 12/12/16 20:20 DC 12/12/16 20:20 0.5 MG Ondansetron HCl (Zofran) 4 mg PRN Q30MIN PRN 12/12/16 18:15 12/12/16 18:35 4 MG Sodium Chloride 1,000 ml @ 125 mls/hr Q8H 12/12/16 19:22 12/13/16 19:21 Allergies Allergies Allergies Coded Allergies Type Severity Reaction Last Updated Verified latex Allergy Severe Anaphylaxis 12/09/16 No Physical Exam Physical Exam Constitutional: Well developed, well nourished, no acute distress, non-toxic appearance. HENT: Normocephalic, atraumatic, bilateral external ears normal, oropharynx moist, no oral exudates, nose normal. [] Eyes: PERRLA, EOMI, conjunctiva normal, no discharge. Neck: Normal range of motion, no tenderness, supple, no stridor. [] Cardiovascular:Heart rate regular rhythm, no murmur Lungs & Thorax: Bilateral breath sounds clear to auscultation Abdomen: Abdomen is soft and moderately distended. Tender to palpation generally without rebound tenderness or guarding. Surgical sites are clean dry and intact. Skin: Warm, dry, no erythema, no rash. [] Back: No tenderness, no CVA tenderness. Extremities: No tenderness, no cyanosis, no clubbing, ROM intact, no edema. Neurologic: Alert and oriented X 3, normal motor function, normal sensory function, no focal deficits noted. [] Psychologic: Affect normal, judgement normal, mood normal. Current Patient Data Vital Signs Vital Signs Date Time Temp Pulse Resp B/P (MAP) Pulse Ox O2 Delivery O2 Flow Rate FiO2 12/12/16 19:00 108 17 122/67 (85) 99 12/12/16 18:37 Room Air 12/12/16 16:42 98.9 98.9 Lab Values Laboratory Tests Test 12/12/16 16:30 12/12/16 19:00 Urine Collection Type Unknown Urine Color Yellow Urine Clarity Clear Urine pH 8.0 Urine Specific [place] 1.020 Urine Protein Negative mg/dL (NEG-TRACE) Urine Glucose (UA) Negative mg/dL (NEG) Urine Ketones (Stick) Negative mg/dL (NEG) Urine Blood Negative (NEG) Urine Nitrite Negative (NEG) Urine Bilirubin Negative (NEG) Urine Urobilinogen Dipstick 0.2 mg/dL (0.2 mg/dL) Urine Leukocyte Esterase Negative (NEG) Urine RBC 0 /HPF (0-2) Urine WBC 1-4 /HPF (0-4) Urine Squamous Epithelial Cells Mod /LPF Urine Bacteria Few /HPF (0-FEW) Urine Mucus Mod /LPF White Blood Count 7.3 x10^3/uL (4.0-11.0) Red Blood Count 4.19 x10^6/uL (3.50-5.40) Hemoglobin 12.9 g/dL (12.0-15.5) Hematocrit 38.7 % (36.0-47.0) Mean Corpuscular Volume 93 fL (79-100) Mean Corpuscular Hemoglobin 31 pg (25-35) Mean Corpuscular Hemoglobin Concent 33 g/dL (31-37) Red Cell Distribution Width 13.3 % (11.5-14.5) Platelet Count 231 x10^3/uL (140-400) Neutrophils (%) (Auto) 49 % (31-73) Lymphocytes (%) (Auto) 38 % (24-48) Monocytes (%) (Auto) 7 % (0-9) Eosinophils (%) (Auto) 6 % (0-3) H Basophils (%) (Auto) 0 % (0-3) Neutrophils # (Auto) 3.6 x10^3uL (1.8-7.7) Lymphocytes # (Auto) 2.7 x10^3/uL (1.0-4.8) Monocytes # (Auto) 0.5 x10^3/uL (0.0-1.1) Eosinophils # (Auto) 0.4 x10^3/uL (0.0-0.7) Basophils # (Auto) 0.0 x10^3/uL (0.0-0.2) Sodium Level 144 mmol/L (136-145) Potassium Level 3.6 mmol/L (3.5-5.1) Chloride Level 105 mmol/L (98-107) Carbon Dioxide Level 29 mmol/L (21-32) Anion Gap 10 (6-14) Blood Urea Nitrogen 9 mg/dL (7-20) Creatinine 0.6 mg/dL (0.6-1.0) Estimated GFR (Cockcroft-Gault) 148.6 BUN/Creatinine Ratio 15 (6-20) Glucose Level 87 mg/dL (70-99) Calcium Level 8.7 mg/dL (8.5-10.1) Total Bilirubin 0.3 mg/dL (0.2-1.0) Aspartate Amino Transferase (AST) 15 U/L (15-37) Alanine Aminotransferase (ALT) 18 U/L (14-59) Alkaline Phosphatase 41 U/L (46-116) L Total Protein 6.9 g/dL (6.4-8.2) Albumin 3.6 g/dL (3.4-5.0) Albumin/Globulin Ratio 1.1 (1.0-1.7) Lipase 135 U/L (73-393) Laboratory Tests 12/12/16 19:00 Laboratory Tests 12/12/16 19:00 EKG EKG [] Radiology/Procedures Radiology/Procedures [] Course & Med Decision Making Course & Med Decision Making Pertinent Labs and Imaging studies reviewed. (See chart for details) [] 26-year-old female presenting with abdominal pain. Blood work obtained. Afebrile with tachycardia. Patient was given fluids and pain medications in the ER. CT the abdomen showed free air which even the patient's recent surgical intervention is difficult to interpret. I discussed the case with the patient's surgeon Dr. Patiño. Collectively, we decided to admit the patient for serial abdominal exams and medical monitoring. The patient was then admitted for further evaluation workup and care. Dragon Disclaimer Dragon Disclaimer This electronic medical record was generated, in whole or in part, using a voice recognition dictation system. Departure Departure Impression: Primary Impression: Abdominal pain Disposition: ADMITTED INPATIENT Admitting Physician: Other (Dr. Aguilar) Condition: STABLE Referrals: MENDY HILL MD (PCP) ROYER FERNÁNDEZ MD December 12, 2016 20:28
[2016-12-12] MEDS: MORPHINE SULFATE 2 MG/ML DISP.SYRIN. IV PRN ×2 (20:39→22:36)
[2016-12-12] MEDS: IV NORMAL SALINE 1000ML BAG 1,000 ML IV SCH (20:40)
[2016-12-12 20:45] VITALS: BP 113/69
[2016-12-12 22:45] VITALS: BP 137/103
[2016-12-12] MEDS ORDERED: ZOLPIDEM 5 MG TABLET. PO PRN (23:00)
[2016-12-13] MEDS: MORPHINE SULFATE 2 MG/ML DISP.SYRIN. IV PRN ×2 (01:22→03:04)
--- NOTE | 2016-12-13 02:45 | ACF ---
Admit Criteria Forms Admit Criteria Forms Admit Criteria Forms ABDOMINAL PAIN Clinical Indications for Admission to Inpatient Care (Place 'X' for any and all applicable criteria): Admission is indicated for ANY ONE of the following(1)(2)(3)(4)(5): [X ]I. Inpatient admission required rather than observation care (Also use Abdominal Pain: Observation Care, as appropriate) because of ANY ONE of the following: [X ]a) Severe pain requiring acute inpatient management [ ]b) Identification of etiology/finding that requires inpatient care (eg, aortic dissection, free air) [ ]c) Absent bowel sounds with complete ileus(6) [ ]d) Suspected toxic megacolon [ ]e) Severe electrolyte abnormalities requiring inpatient care [ ]f) High fever or infection requiring inpatient admission as indicated by ANY ONE of following(7)(8): [ ] i) Appropriate outpatient or observational care antimicrobial treatment unavailable, not effective, or not feasible [ ] ii) Documented bacteremia [ ] iii) Temperature > 104.9 degrees F (oral) [ ] iv) T >103.1 F (oral) or < 96.8 F(rectal) that does not respond to all emergency treatment measures [ ]g) Signs of intestinal obstruction [B] [ ]h) Hemodynamic instability [ ]i) IV fluid to replace significant ongoing losses (greater than 3 L/m2 per day) (12)(13) [ ]j) Percutaneous or open drainage (eg, abscess, biliary tract ) procedures [ ]k) Parenteral nutrition regimen that must be implemented on inpatient basis [ ]l) Other condition,treatment or monitoring requiring inpatient admission. [ ]II. Peritoneal signs present [ ]III. Surgery needed that cannot be performed on an ambulatory basis. [ ]IV. Evaluation requires patient to not eat or drink for extended period ( eg, more than 24 hours). [ ]V. Contraindications and/or Inappropriate clinical situations for Observational Care in patients with abdominal pain, when ANY ONE of the following is required: [ ]a) Thorough evaluation is required to prevent catastrophic events due to delays in diagnosing (e.g.Mesenteric ischemia) 1,3 [ ]b) Patient with severe pathology or with chronic symptoms unlikely to improve in the ED stay (3) [ ]. General contraindications and/or Inappropriate clinical situations for Observational Care in patients with abdominal pain, when ANY ONE of the following is required: [ ]a) Prediction of prolongation of LOS based on ANY ONE of the following may be considered as a contraindication for observational care 2, 3, 4, 5, 6, 7, 8, 9, 10, 11 [ ]i) Age > 65 yrs. [ ]ii) Patient arriving by ambulance [ ]iii) Patient with high acuity [ ]iv) Patient requiring vital sign monitoring [ ]v) Patient on IV medication [ ]b) Systolic blood pressures 180mmHg 3,12 [ ]c) Patient with altered mental status including delirium and other alteration of consciousness, (3) [ ]d) Patient whose discharge disposition will be to a shelter home or rehabilitation home should not be managed in Emergency Department Observation Unit. CMS rule requires 3 days hospital stay before such placement.3,13 [ ]e) Patient with failure to thrive due to broad array of etiologies 3,16,17 [ ]f) Inability to ambulate 3,14 Extended stay beyond goal length of stay may be needed for(2)(3): [ ]a) Persistent abdominal pain with suspected intra-abdominal process [ ]b) Diagnosed condition requiring continued stay (e.g., pancreatitis, complicated diverticulitis) [ ]c) Surgery (e.g., colectomy) The original [employer] content created by [employer] has been revised. The portions of the content which have been revised are identified through the use of italic text or in bold, and [facility] [place] [facility] has neither reviewed nor approved the modified material.All other unmodified content is copyright [employer]. Please see references footnoted in the original [employer] edition 2016 LALO GALVEZ December 13, 2016 02:45
[2016-12-13 03:11] VITALS: BP 119/80
[2016-12-13] MEDS: HYDROmorphone 2 MG/ML VIAL IV PRN ×2 (03:43→09:48)
[2016-12-13] MEDS: IV NORMAL SALINE 1000ML BAG 1,000 ML IV SCH (04:06)
[2016-12-13 05:09] LABS: BASO % 0 % (0-3); EOS % 6 % (0-3); HEMATOCRIT 34.4 % (36.0-47.0); HEMOGLOBIN 12.1 g/dL (12.0-15.5); LYMPH # 3.2 x10^3/uL (1.0-4.8); LYMPH % 41 % (24-48); MEAN CORPUSCULAR HEMOGLOBIN 32 pg (25-35); MEAN CORPUSCULAR HGB CONC 35 g/dL (31-37); MEAN CORPUSCULAR VOLUME 90 fL (79-100); MONO % 8 % (0-9); NEUT % 45 % (31-73); PLATELET COUNT 203 x10^3/uL (140-400); RED BLOOD COUNT 3.81 x10^6/uL (3.50-5.40); RED CELL DISTRIBUTION WIDTH 13.2 % (11.5-14.5)
[2016-12-13 05:29] LABS: CALCIUM 7.9 mg/dL (8.5-10.1); CREATININE 0.7 mg/dL (0.6-1.0); GFR 124.4; POTASSIUM 3.6 mmol/L (3.5-5.1)
[2016-12-13 05:44] VITALS: BP 126/86
--- NOTE | 2016-12-13 08:28 | ACF ---
Admission Forms Criteria ABDOMINAL PAIN Clinical Indications for Admission to Inpatient Care (Place 'X' for any and all applicable criteria): Admission is indicated for ANY ONE of the following(1)(2)(3)(4)(5): [ ]I. Inpatient admission required rather than observation care (Also use Abdominal Pain: Observation Care, as appropriate) because of ANY ONE of the following: [ ]a) Severe pain requiring acute inpatient management [ ]b) Identification of etiology/finding that requires inpatient care (eg, aortic dissection, free air) [ ]c) Absent bowel sounds with complete ileus(6) [ ]d) Suspected toxic megacolon [ ]e) Severe electrolyte abnormalities requiring inpatient care [ ]f) High fever or infection requiring inpatient admission as indicated by ANY ONE of following(7)(8): [ ] i) Appropriate outpatient or observational care antimicrobial treatment unavailable, not effective, or not feasible [ ] ii) Documented bacteremia [ ] iii) Temperature > 104.9 degrees F (oral) [ ] iv) T >103.1 F (oral) or < 96.8 F(rectal) that does not respond to all emergency treatment measures [ ]g) Signs of intestinal obstruction [B] [ ]h) Hemodynamic instability [ ]i) IV fluid to replace significant ongoing losses (greater than 3 L/m2 per day) (12)(13) [ ]j) Percutaneous or open drainage (eg, abscess, biliary tract ) procedures [ ]k) Parenteral nutrition regimen that must be implemented on inpatient basis [ ]l) Other condition,treatment or monitoring requiring inpatient admission. [ ]II. Peritoneal signs present [ ]III. Surgery needed that cannot be performed on an ambulatory basis. [ ]IV. Evaluation requires patient to not eat or drink for extended period ( eg, more than 24 hours). [ ]V. Contraindications and/or Inappropriate clinical situations for Observational Care in patients with abdominal pain, when ANY ONE of the following is required: [ ]a) Thorough evaluation is required to prevent catastrophic events due to delays in diagnosing (e.g.Mesenteric ischemia) 1,3 [ ]b) Patient with severe pathology or with chronic symptoms unlikely to improve in the ED stay (3) [ ]. General contraindications and/or Inappropriate clinical situations for Observational Care in patients with abdominal pain, when ANY ONE of the following is required: [ ]a) Prediction of prolongation of LOS based on ANY ONE of the following may be considered as a contraindication for observational care 2, 3, 4, 5, 6, 7, 8, 9, 10, 11 [ ]i) Age > 65 yrs. [ ]ii) Patient arriving by ambulance [ ]iii) Patient with high acuity [ ]iv) Patient requiring vital sign monitoring [ ]v) Patient on IV medication [ ]b) Systolic blood pressures 180mmHg 3,12 [ ]c) Patient with altered mental status including delirium and other alteration of consciousness, (3) [ ]d) Patient whose discharge disposition will be to a senior living home or rehabilitation home should not be managed in Emergency Department Observation Unit. CMS rule requires 3 days hospital stay before such placement.3,13 [ ]e) Patient with failure to thrive due to broad array of etiologies 3,16,17 [ ]f) Inability to ambulate 3,14 Extended stay beyond goal length of stay may be needed for(2)(3): [ ]a) Persistent abdominal pain with suspected intra-abdominal process [ ]b) Diagnosed condition requiring continued stay (e.g., pancreatitis, complicated diverticulitis) [ ]c) Surgery (e.g., colectomy) The original [facility] content created by [employer] has been revised. The portions of the content which have been revised are identified through the use of italic text or in bold, and [facility] has neither reviewed nor approved the modified material.All other unmodified content is copyright [employer]. Please see references footnoted in the original [facility] edition 2016 SHALINI SANCHEZ December 13, 2016 08:28
[2016-12-13 11:25] VITALS: BP 132/89
--- NOTE | 2016-12-13 11:38 | DISCH ---
DISCHARGE INSTRUCTIONS Condition on Discharge Condition on Discharge: Stable Activity After Discharge Activity Instructions for Disc: Activity as tolerated Lifting Instructions after Dis: No heavy lifting Driving Instructions after Dis: Do not drive today Diet after Discharge Diet after Discharge: Regular Contacting the DRNora after DC Call your doctor for: Concerns you may have Follow-Up Follow up with: Dr. Aguilar in 2 weeks. ARPIT AGUILAR Jr, MD December 13, 2016 11:38
--- NOTE | 2016-12-13 11:38 | PDOC1 ---
History and Physical Date of Admission Date of Admission DATE: 12/13/16 TIME: 11:26 Identification/Chief Complaint Chief Complaint abd pain Problems: Source Source: Chart review, Patient History of Present Illness History of Present Illness 26 y/o presented to ED with c/o severe abd pain. She had LPSC resection endometriosis 4 days ago. She has h/o chronic pelvic pain and prescriptions from multiple providers for narcotics. Pt.'s pain was controlled better in hospital. No fevers, chills, N/V, hematuria, dysuria or change in bowel habits. Past Medical History Cardiovascular: No pertinent hx Pulmonary: No pertinent hx GI: No pertinent hx Psych: Addictions Renal/: Other (Chronic pelvic pain) Past Surgical History Past Surgical History: Other (LPSC resection endometriosis) Family History Family History: No Significant Social History ALCOHOL: none Drugs: Marijuana Current Problem List Problem List Problems Medical Problems: (1) Abdominal pain Status: Acute Problems: Current Medications Current Medications Current Medications Hydromorphone HCl (Dilaudid) 0.5 mg PRN Q1HR PRN IV SEVERE PAIN Last administered on 12/12/16 20:20; Start 12/12/16 at 18:15; Stop 12/12/16 at 20:20 ; Status DC Ondansetron HCl (Zofran) 4 mg PRN Q30MIN PRN IV NAUSEA/VOMITING Last administered on 12/12/16 18:35; Start 12/12/16 at 18:15; Stop 12/12/16 at 22:55 ; Status DC Sodium Chloride 500 ml @ 500 mls/hr 1X ONCE IV Last administered on 18:38; Start 12/12/16 at 18:15; Stop 12/12/16 at 19:14; Status DC Ondansetron HCl (Zofran) 4 mg PRN Q8HRS PRN IV NAUSEA/VOMITING; Start 12/12/16 at 19:30; Stop 12/12/16 at 22:55; Status DC Morphine Sulfate 2 mg PRN Q2HR PRN IV PAIN Last administered on 12/13/16 03:04 ; Start 12/12/16 at 19:30; Stop 12/13/16 at 03:38; Status DC Sodium Chloride 1,000 ml @ 125 mls/hr Q8H IV Last administered on 5/29/17at 04 :06; Start 12/12/16 at 19:22; Stop 12/13/16 at 19:21 Lorazepam (Ativan) 1 mg PRN Q12HR PRN IV ANXIETY / AGITATION Last administered on 12/12/16 21:13; Start 12/12/16 at 21:00 Zolpidem Tartrate (Ambien) 5 mg PRN QHS PRN PO INSOMNIA Last administered on 22:59; Start 12/12/16 at 23:00 Ondansetron HCl (Zofran) 4 mg PRN Q6HRS PRN IV NAUSEA/VOMITING Last administered on 12/13/16 07:34; Start 12/12/16 at 23:00 Hydromorphone HCl (Dilaudid) 1 mg PRN Q6HRS PRN IV SEVERE PAIN Last administered on 12/13/16 09:48; Start 12/13/16 at 03:45 Active Scripts Active Zofran Odt (Ondansetron) 4 Mg Tab.rapdis 1 Tab SL Q8HRS Percocet 7.5-325 Mg Tablet (Oxycodone/Acetaminophen) 1 Each Tablet 1 Tab PO Q6HRS PRN Reported Naproxen 500 Mg Tablet 500 Mg PO PRN Q8HRS PRN Allergies Allergies: Coded Allergies: latex (Unverified Allergy, Severe, Anaphylaxis, 12/09/16) ROS General: No: Chills, Night Sweats, Fatigue, Malaise, Appetite, Other PSYCHOLOGICAL ROS: YES: Anxiety, No: Behavioral Disorder, Concentration difficultie, Decreased libido, Depression, Disorientation, Hallucinations, Hostility, Irritablity, Memory difficulties, Mood Swings, Obsessive thoughts, Physical abuse, Sexual abuse, Sleep disturbances, Suicidal ideation, Other Eyes: No Blurry vision, No Decreased vision, No Double vision, No Dry eyes, No Excessive tearing, No Eye Pain, No Itchy Eyes, No Loss of vision, No Photophobia , No Scotomata, No Uses contacts, No Uses glasses, No Other HEENT: No: Heacaches, Visual Changes, Hearing change, Nasal congestion, Nasal discharge, Oral lesions, Sinus pain, Sore Throat, Epistaxis, Sneezing, Snoring, Tinnitus, Vertigo, Vocal changes, Other ALLERGY AND IMMUNOLOGY: No: Hives, Insect Bite Sensitivity, Itchy/Watery Eyes, Nasal Congestion, Post Nasal Drip, Seasonal Allergies, Other Hematological and Lymphatic: No: Bleeding Problems, Blood Clots, Blood Transfusions, Brusing, Night Sweats, Pallor, Swollen Lymph Nodes, Other ENDOCRINE: No: Breast Changes, Galactorrhea, Hair Pattern Changes, Hot Flashes , Malaise/lethargy, Mood Swings, Palpitations, Polydipsia/polyuria, Skin Changes , Temperature Intolerance, Unexpected Weight Changes, Other Breast: No New/Changing Breast Lumps, No Nipple changes, No Nipple discharge, No Other Respiratory: No: Cough, Hemoptysis, Orthopnea, Pleuritic Pain, Shortness of breath, SOB with excertion, Sputum Changes, Stridor, Tachypnea, Wheezing, Other Cardiovascular: No Chest Pain, No Palpitations, No Orthopnea, No Paroxysmal Noc. Dyspnea, No Edema, No Lt Headedness, No Other Gastrointestinal: Yes Nausea, Yes Abdominal Pain, No Vomiting, No Diarrhea, No Constipation, No Melena, No Hematochezia, No Other Genitourinary: No Dysuria, No Frequency, No Incontinence, No Hematuria, No Retention, No Discharge, No Urgency, No Pain, No Flank Pain, No Other, No , No , No , No , No , No , No Musculoskeletal: No Gait Disturbance, No Joint Pain, No Joint Stiffness, No Joint Swelling, No Muscle Pain, No Muscular Weakness, No Pain In:, No Swelling In:, No Other Physical Exam General: Alert, Oriented X3, Cooperative HEENT: Atraumatic Lungs: Clear to auscultation Heart: S1S2 Abdomen: Normal bowel sounds, Soft, Other (pelvic tenderness; no rebound tenderness or gaurding.) Psych/Mental Status: Mental status NL Vitals Vitals Vital Signs Date Time Temp Pulse Resp B/P (MAP) Pulse Ox O2 Delivery O2 Flow Rate FiO2 12/13/16 10:20 18 Room Air 12/13/16 05:44 98.0 62 126/86 (99) 98 98.0 Labs Labs Laboratory Tests Test 12/12/16 16:30 12/12/16 19:00 12/13/16 04:48 Urine Collection Type Unknown Urine Color Yellow Urine Clarity Clear Urine pH 8.0 Urine Specific [place] 1.020 Urine Protein Negative mg/dL (NEG-TRACE) Urine Glucose (UA) Negative mg/dL (NEG) Urine Ketones (Stick) Negative mg/dL (NEG) Urine Blood Negative (NEG) Urine Nitrite Negative (NEG) Urine Bilirubin Negative (NEG) Urine Urobilinogen Dipstick 0.2 mg/dL (0.2 mg/dL) Urine Leukocyte Esterase Negative (NEG) Urine RBC 0 /HPF (0-2) Urine WBC 1-4 /HPF (0-4) Urine Squamous Epithelial Cells Mod /LPF Urine Bacteria Few /HPF (0-FEW) Urine Mucus Mod /LPF White Blood Count 7.3 x10^3/uL (4.0-11.0) 8.0 x10^3/uL (4.0-11.0) Red Blood Count 4.19 x10^6/uL (3.50-5.40) 3.81 x10^6/uL (3.50-5.40) Hemoglobin 12.9 g/dL (12.0-15.5) 12.1 g/dL (12.0-15.5) Hematocrit 38.7 % (36.0-47.0) 34.4 % (36.0-47.0) Mean Corpuscular Volume 93 fL (79-100) 90 fL (79-100) Mean Corpuscular Hemoglobin 31 pg (25-35) 32 pg (25-35) Mean Corpuscular Hemoglobin Concent 33 g/dL (31-37) 35 g/dL (31-37) Red Cell Distribution Width 13.3 % (11.5-14.5) 13.2 % (11.5-14.5) Platelet Count 231 x10^3/uL (140-400) 203 x10^3/uL (140-400) Neutrophils (%) (Auto) 49 % (31-73) 45 % (31-73) Lymphocytes (%) (Auto) 38 % (24-48) 41 % (24-48) Monocytes (%) (Auto) 7 % (0-9) 8 % (0-9) Eosinophils (%) (Auto) 6 % (0-3) 6 % (0-3) Basophils (%) (Auto) 0 % (0-3) 0 % (0-3) Neutrophils # (Auto) 3.6 x10^3uL (1.8-7.7) 3.6 x10^3uL (1.8-7.7) Lymphocytes # (Auto) 2.7 x10^3/uL (1.0-4.8) 3.2 x10^3/uL (1.0-4.8) Monocytes # (Auto) 0.5 x10^3/uL (0.0-1.1) 0.7 x10^3/uL (0.0-1.1) Eosinophils # (Auto) 0.4 x10^3/uL (0.0-0.7) 0.4 x10^3/uL (0.0-0.7) Basophils # (Auto) 0.0 x10^3/uL (0.0-0.2) 0.0 x10^3/uL (0.0-0.2) Sodium Level 144 mmol/L (136-145) 144 mmol/L (136-145) Potassium Level 3.6 mmol/L (3.5-5.1) 3.6 mmol/L (3.5-5.1) Chloride Level 105 mmol/L (98-107) 108 mmol/L (98-107) Carbon Dioxide Level 29 mmol/L (21-32) 28 mmol/L (21-32) Anion Gap 10 (6-14) 8 (6-14) Blood Urea Nitrogen 9 mg/dL (7-20) 7 mg/dL (7-20) Creatinine 0.6 mg/dL (0.6-1.0) 0.7 mg/dL (0.6-1.0) Estimated GFR (Cockcroft-Gault) 148.6 124.4 BUN/Creatinine Ratio 15 (6-20) Glucose Level 87 mg/dL (70-99) 81 mg/dL (70-99) Calcium Level 8.7 mg/dL (8.5-10.1) 7.9 mg/dL (8.5-10.1) Total Bilirubin 0.3 mg/dL (0.2-1.0) Aspartate Amino Transf (AST/SGOT) 15 U/L (15-37) Alanine Aminotransferase (ALT/SGPT) 18 U/L (14-59) Alkaline Phosphatase 41 U/L (46-116) Total Protein 6.9 g/dL (6.4-8.2) Albumin 3.6 g/dL (3.4-5.0) Albumin/Globulin Ratio 1.1 (1.0-1.7) Lipase 135 U/L (73-393) Laboratory Tests Test 12/12/16 16:30 12/12/16 19:00 12/13/16 04:48 Urine Collection Type Unknown Urine Color Yellow Urine Clarity Clear Urine pH 8.0 Urine Specific [place] 1.020 Urine Protein Negative mg/dL (NEG-TRACE) Urine Glucose (UA) Negative mg/dL (NEG) Urine Ketones (Stick) Negative mg/dL (NEG) Urine Blood Negative (NEG) Urine Nitrite Negative (NEG) Urine Bilirubin Negative (NEG) Urine Urobilinogen Dipstick 0.2 mg/dL (0.2 mg/dL) Urine Leukocyte Esterase Negative (NEG) Urine RBC 0 /HPF (0-2) Urine WBC 1-4 /HPF (0-4) Urine Squamous Epithelial Cells Mod /LPF Urine Bacteria Few /HPF (0-FEW) Urine Mucus Mod /LPF White Blood Count 7.3 x10^3/uL (4.0-11.0) 8.0 x10^3/uL (4.0-11.0) Red Blood Count 4.19 x10^6/uL (3.50-5.40) 3.81 x10^6/uL (3.50-5.40) Hemoglobin 12.9 g/dL (12.0-15.5) 12.1 g/dL (12.0-15.5) Hematocrit 38.7 % (36.0-47.0) 34.4 % (36.0-47.0) Mean Corpuscular Volume 93 fL (79-100) 90 fL (79-100) Mean Corpuscular Hemoglobin 31 pg (25-35) 32 pg (25-35) Mean Corpuscular Hemoglobin Concent 33 g/dL (31-37) 35 g/dL (31-37) Red Cell Distribution Width 13.3 % (11.5-14.5) 13.2 % (11.5-14.5) Platelet Count 231 x10^3/uL (140-400) 203 x10^3/uL (140-400) Neutrophils (%) (Auto) 49 % (31-73) 45 % (31-73) Lymphocytes (%) (Auto) 38 % (24-48) 41 % (24-48) Monocytes (%) (Auto) 7 % (0-9) 8 % (0-9) Eosinophils (%) (Auto) 6 % (0-3) 6 % (0-3) Basophils (%) (Auto) 0 % (0-3) 0 % (0-3) Neutrophils # (Auto) 3.6 x10^3uL (1.8-7.7) 3.6 x10^3uL (1.8-7.7) Lymphocytes # (Auto) 2.7 x10^3/uL (1.0-4.8) 3.2 x10^3/uL (1.0-4.8) Monocytes # (Auto) 0.5 x10^3/uL (0.0-1.1) 0.7 x10^3/uL (0.0-1.1) Eosinophils # (Auto) 0.4 x10^3/uL (0.0-0.7) 0.4 x10^3/uL (0.0-0.7) Basophils # (Auto) 0.0 x10^3/uL (0.0-0.2) 0.0 x10^3/uL (0.0-0.2) Sodium Level 144 mmol/L (136-145) 144 mmol/L (136-145) Potassium Level 3.6 mmol/L (3.5-5.1) 3.6 mmol/L (3.5-5.1) Chloride Level 105 mmol/L (98-107) 108 mmol/L (98-107) Carbon Dioxide Level 29 mmol/L (21-32) 28 mmol/L (21-32) Anion Gap 10 (6-14) 8 (6-14) Blood Urea Nitrogen 9 mg/dL (7-20) 7 mg/dL (7-20) Creatinine 0.6 mg/dL (0.6-1.0) 0.7 mg/dL (0.6-1.0) Estimated GFR (Cockcroft-Gault) 148.6 124.4 BUN/Creatinine Ratio 15 (6-20) Glucose Level 87 mg/dL (70-99) 81 mg/dL (70-99) Calcium Level 8.7 mg/dL (8.5-10.1) 7.9 mg/dL (8.5-10.1) Total Bilirubin 0.3 mg/dL (0.2-1.0) Aspartate Amino Transf (AST/SGOT) 15 U/L (15-37) Alanine Aminotransferase (ALT/SGPT) 18 U/L (14-59) Alkaline Phosphatase 41 U/L (46-116) Total Protein 6.9 g/dL (6.4-8.2) Albumin 3.6 g/dL (3.4-5.0) Albumin/Globulin Ratio 1.1 (1.0-1.7) Lipase 135 U/L (73-393) VTE Prophylaxis Ordered VTE Prophylaxis Devices: No VTE Pharmacological Prophylaxi: No Assessment/Plan Assessment/Plan A: Pelvic pain s/p LPSC surgery; improved with IV hydration and pain management. P: D/c home. ARPIT BAEZ Jr, MD December 13, 2016 11:38
[2016-12-13] MEDS ORDERED: OXYC-244 PO (11:39)
== END 2016-12-13 11:55 | disposition home or self-care (01) ==
LOC: ER 16:13 → 3 NORTH 19:23
PROVIDERS: ADMIT Obstetrics & Gynecology; ATTEND Obstetrics & Gynecology
DX: G89.18 Other acute postprocedural pain (principal); R10.2 Pelvic and perineal pain; G89.29 Other chronic pain; F41.9 Anxiety disorder, unspecified; N80.9 Endometriosis, unspecified; J45.909 Unspecified asthma, uncomplicated; K58.9 Irritable bowel syndrome, unspecified; Z91.040 Latex allergy status; Z90.49 Acquired absence of other specified parts of digestive tract
CPT/HCPCS: 36415; 74176; 80048; 80053; 81001; 81025; 83690; 85027; 96361; 96374; 96375; 96376; 99285; G0378; J1170; J2060; J2270; J2405; J7030; J7040; G0379

== ENCOUNTER 2016-12-16 16:39 | Emergency (ER) | payer OTHER ==
[~2016-12-16] VITALS: Ht 152.4 cm; Wt 54.0 kg
[~2016-12-16 16:39] MED LIST changes: -LEVO500T38 PO; +LEVO500T59 PO; -OXYC-244 PO; -OXYC-250 PO; +OXYC-327 PO; +OXYC-328 PO; -OXYC10TA32 PO; +OXYC10TA45 PO
[2016-12-16] MEDS ORDERED: ONDANSETRON PF 4 MG/2 ML VIAL. IV ONE (17:15)
[2016-12-16] MEDS ORDERED: cloNIDine HCL 0.1 MG TABLET PO ONE (17:15)
[2016-12-16] MEDS ORDERED: IV NORMAL SALINE 1000ML BAG 1,000 ML IV SCH (17:15)
--- NOTE | 2016-12-16 17:16 | PHYS DOC ---
Past Medical History Past Medical History: Asthma, IBS, P.I.D. Additional Past Medical Histor: ulcer, endometriosis, Chronic R leg pain, Chronic Pelvic Pain Past Surgical History: Tonsillectomy, Other Additional Past Surgical Histo: right LOWER leg- compound fx Alcohol Use: None Drug Use: None Adult General Chief Complaint Chief Complaint: PELVIC PAIN HPI HPI Patient is a 26 year old female who presents with complaint of lightheadedness , dizziness, and pelvic pain. Patient has been seen in the emergency department on numerous occasions due to chronic pelvic pain secondary to endometriosis. Patient recently had a laparoscopic procedure completed by Dr. Aguilar which showed evidence of endometriosis. Patient was admitted on December 12, 2016 secondary to persistent pelvic pain. Patient was treated and released on December 13. Patient received a prescription for 45 Percocet tablets. Patient states that she took all of these tablets within the last 3 days. Patient states her last tablet was taken this morning. Patient states that throughout the day she started getting worsening pain. Patient has also developed nausea and vomiting. Patient denies any fevers. Patient states pain is in her lower abdomen and states that the symptoms are consistent with previous exacerbations. Review of Systems Review of Systems Constitutional: Agitation, denies fevers [] Eyes: Denies change in visual acuity, redness, or eye pain [] HENT: Denies nasal congestion or sore throat [] Respiratory: Denies cough or shortness of breath [] Cardiovascular: Denies chest pain or edema [] GI: Abdominal and pelvic pain, nausea, vomiting [] : Denies dysuria or hematuria [] Musculoskeletal: Denies back pain or joint pain [] Integument: Denies rash or skin lesions [] Neurologic: Denies headache, focal weakness or sensory changes [] Current Medications Current Medications Current Medications Medications (Trade) Dose Ordered Sig/Luis Start Time Stop Time Status Last Admin Dose Admin Clonidine HCl (Catapres) 0.2 mg 1X ONCE 12/16/16 17:15 12/16/16 17:16 DC 12/16/16 17:23 0.2 MG Lorazepam (Ativan) 1 mg 1X ONCE 12/16/16 17:15 12/16/16 17:16 DC 12/16/16 17:25 1 MG Ondansetron HCl (Zofran) 4 mg 1X ONCE 12/16/16 17:15 12/16/16 17:16 DC 12/16/16 17:24 4 MG Sodium Chloride 1,000 ml @ 1,000 mls/hr Q1H 12/16/16 17:15 12/16/16 18:14 DC 12/16/16 17:30 1,000 MLS/HR Allergies Allergies Allergies Coded Allergies Type Severity Reaction Last Updated Verified latex Allergy Severe Anaphylaxis 12/09/16 No Physical Exam Physical Exam Constitutional: Alert, afebrile, tachycardic, hypertensive. [] HENT: Normocephalic, atraumatic, bilateral external ears normal, oropharynx moist, no oral exudates, nose normal. [] Eyes: Pupils dilated, EOMI, conjunctiva normal, no discharge. [] Neck: Normal range of motion, no tenderness, supple, no stridor. [] Cardiovascular: Tachycardia, regular rhythm, no murmur [] Lungs & Thorax: Bilateral breath sounds clear to auscultation [] Abdomen: Bowel sounds normal, soft, suprapubic and left lower quadrant tenderness to palpation with guarding, no rebound tenderness, no masses, no pulsatile masses. [] Skin: Warm, dry, no erythema, diffuse piloerection present. [] Back: No tenderness, no CVA tenderness. [] Extremities: No tenderness, no cyanosis, no clubbing, ROM intact, no edema. [] Neurologic: Alert and oriented X 3, normal motor function, normal sensory function, no focal deficits noted. [] Current Patient Data Vital Signs Vital Signs Date Time Temp Pulse Resp B/P (MAP) Pulse Ox O2 Delivery O2 Flow Rate FiO2 12/16/16 17:23 117 134/56 12/16/16 17:20 13 98 Room Air 12/16/16 16:53 99.2 99.2 Lab Values Laboratory Tests Test 12/16/16 15:57 12/16/16 16:45 12/16/16 17:10 12/16/16 17:15 POC Urine HCG, Qualitative Hcg negative (Negative) Urine Collection Type Unknown Urine Color Yellow Urine Clarity Clear Urine pH 7.0 Urine Specific [place] 1.020 Urine Protein 100 mg/dL (NEG-TRACE) Urine Glucose (UA) Negative mg/dL (NEG) Urine Ketones (Stick) 40 mg/dL (NEG) Urine Blood Trace (NEG) Urine Nitrite Negative (NEG) Urine Bilirubin Negative (NEG) Urine Urobilinogen Dipstick 0.2 mg/dL (0.2 mg/dL) Urine Leukocyte Esterase Negative (NEG) Urine RBC Occ /HPF (0-2) Urine WBC 1-4 /HPF (0-4) Urine Squamous Epithelial Cells Mod /LPF Urine Bacteria Moderate /HPF (0-FEW) Urine Mucus Marked /LPF Urine Opiates Screen Neg (NEG) Urine Methadone Screen Neg (NEG) Urine Barbiturates Neg (NEG) Urine Phencyclidine Screen Neg (NEG) Urine Amphetamine/Methamphetamine Neg (NEG) Urine Benzodiazepines Screen Neg (NEG) Urine Cocaine Screen Neg (NEG) Urine Cannabinoids Screen Pos (NEG) Urine Ethyl Alcohol Neg (NEG) Prothrombin Time 13.8 SEC (11.7-14.0) Prothrombin Time INR 1.1 (0.8-1.1) PTT 36 SEC (24-38) Sodium Level 140 mmol/L (136-145) Potassium Level 3.8 mmol/L (3.5-5.1) Chloride Level 101 mmol/L (98-107) Carbon Dioxide Level 27 mmol/L (21-32) Anion Gap 12 (6-14) Blood Urea Nitrogen 10 mg/dL (7-20) Creatinine 0.8 mg/dL (0.6-1.0) Estimated GFR (Cockcroft-Gault) 106.6 Glucose Level 89 mg/dL (70-99) Calcium Level 9.5 mg/dL (8.5-10.1) Magnesium Level 1.6 mg/dL (1.8-2.4) L Total Bilirubin 0.4 mg/dL (0.2-1.0) Direct Bilirubin 0.1 mg/dL (0.0-0.2) Aspartate Amino Transferase (AST) 16 U/L (15-37) Alanine Aminotransferase (ALT) 18 U/L (14-59) Alkaline Phosphatase 54 U/L (46-116) Total Protein 8.3 g/dL (6.4-8.2) H Albumin 4.3 g/dL (3.4-5.0) Salicylates Level 3.5 mg/dL (2.8-20.0) Salicylate Last Dose Date Unk Salicylate Last Dose Time Unk Acetaminophen Level < 10 mcg/ml (10-30) L Acetaminophen Last Dose Date Unk Acetaminophen Last Dose Time Unk White Blood Count 10.4 x10^3/uL (4.0-11.0) Red Blood Count 4.84 x10^6/uL (3.50-5.40) Hemoglobin 15.1 g/dL (12.0-15.5) Hematocrit 43.9 % (36.0-47.0) Mean Corpuscular Volume 91 fL (79-100) Mean Corpuscular Hemoglobin 31 pg (25-35) Mean Corpuscular Hemoglobin Concent 34 g/dL (31-37) Red Cell Distribution Width 13.5 % (11.5-14.5) Platelet Count 282 x10^3/uL (140-400) Neutrophils (%) (Auto) 68 % (31-73) Lymphocytes (%) (Auto) 19 % (24-48) L Monocytes (%) (Auto) 8 % (0-9) Eosinophils (%) (Auto) 4 % (0-3) H Basophils (%) (Auto) 1 % (0-3) Neutrophils # (Auto) 7.0 x10^3uL (1.8-7.7) Lymphocytes # (Auto) 2.0 x10^3/uL (1.0-4.8) Monocytes # (Auto) 0.9 x10^3/uL (0.0-1.1) Eosinophils # (Auto) 0.4 x10^3/uL (0.0-0.7) Basophils # (Auto) 0.0 x10^3/uL (0.0-0.2) Laboratory Tests 12/16/16 17:15 Laboratory Tests 12/16/16 17:10 EKG EKG Interpreted by me: Heart rate 117, sinus tachycardia, normal intervals, normal axis, no acute ST/T-wave abnormalities present [] Radiology/Procedures Radiology/Procedures Not performed [] Course & Med Decision Making Course & Med Decision Making Pertinent Labs and Imaging studies reviewed. (See chart for details) The patient's clinical presentation shows many findings consistent with acute narcotic withdrawal. Of concern however is a claim that the patient states she took 45 tablets of Percocet in the last 3 days as this would equal approximately 5 g of Tylenol daily which would be considered a toxic dose. However, upon toxicology workup, it was found that the patient shows no traces of opiates or acetaminophen in her system. This would not support the patient's claim that she has taken this medication within the last 3 days. Unfortunately this raises high suspicion that the patient is not using her medication in an appropriate manner and I sat and spoke with the patient regarding these findings. The patient maintained that she had taken this medication and without any prompting she stated "I'm not selling it." I explained to the patient that her symptoms at this time are consistent with narcotic withdrawal and the patient responded well after being treated with Ativan, Zofran, and clonidine. Patient's vital signs stabilized and patient's symptoms have improved at this time. I reiterated to the patient that she should only take medications as prescribed and that her medications should remain under her care. I also contacted the patient's [employer], Dr. Aguilar, last prescribed the patient Percocet. I informed him of today's visit and findings and high suspicion that the patient is not using her medication appropriately. He voiced understanding of this and will follow up with the patient at her next routine appointment. The patient will be prescribed clonidine and Zofran for treatment of her withdrawal symptoms. I advised the patient follow-up in the next 2-3 days with with her primary doctor and return to emergency department for any worsening symptoms. Dragon Disclaimer Dragon Disclaimer This electronic medical record was generated, in whole or in part, using a voice recognition dictation system. Departure Departure Impression: Primary Impression: Narcotic withdrawal Disposition: 01 HOME, SELF-CARE Condition: IMPROVED Referrals: MENDY HILL MD (PCP) ELLIE MCGEE MD Patient Instructions: Narcotic Withdrawal Additional Instructions: Follow-up with your primary doctor in the next 2-3 days. It is recommended that you take medication only as prescribed on the bottle. Return to the emergency department for any worsening symptoms. Scripts Ondansetron (ZOFRAN ODT) 4 Mg Tab.rapdis 4 MG PO Q8HRS Y for NAUSEA/VOMITING, #20 TAB Prov: GISELE BROWNING MD 12/16/16 Clonidine Hcl (CLONIDINE HCL) 0.2 Mg Tablet 1 TAB PO BID Y for HYPERTENSION, SEE COMMENTS, #30 TAB 0 Refills Prov: GISELE BROWNING MD 12/16/16 GISELE BROWNING MD Dec 16, 2016 17:16
[2016-12-16 17:19] LABS: BILIRUBIN,URINE NEGATIVE (NEG); GLUCOSE,URINE NEGATIVE (NEG); NITRITE,URINE NEGATIVE (NEG); PROTEIN,URINE 100 mg/dL (NEG-TRACE); UROBILINOGEN,URINE 0.2 mg/dL (0.2 mg/dL)
[2016-12-16 17:24] LABS: BASO % 1 % (0-3); EOS % 4 % (0-3); HEMATOCRIT 43.9 % (36.0-47.0); HEMOGLOBIN 15.1 g/dL (12.0-15.5); LYMPH % 19 % (24-48); MEAN CORPUSCULAR HEMOGLOBIN 31 pg (25-35); MEAN CORPUSCULAR HGB CONC 34 g/dL (31-37); MEAN CORPUSCULAR VOLUME 91 fL (79-100); MONO % 8 % (0-9); NEUT % 68 % (31-73); PLATELET COUNT 282 x10^3/uL (140-400); RED BLOOD COUNT 4.84 x10^6/uL (3.50-5.40); RED CELL DISTRIBUTION WIDTH 13.5 % (11.5-14.5); WHITE BLOOD COUNT 10.4 x10^3/uL (4.0-11.0)
[2016-12-16 17:26] LABS: BARBITURATES NEG (NEG); BENZODIAZEPINES NEG (NEG); CANNABINOIDS POS (NEG); COCAINE NEG (NEG); METHADONE NEG (NEG); OPIATES NEG (NEG); PHENCYCLIDINE NEG (NEG)
[2016-12-16 17:28] LABS: INR 1.1 (0.8-1.1); PROTHROMBIN TIME PATIENT 13.8 SEC (11.7-14.0)
[2016-12-16 17:28] LABS: BACTERIA,URINE MODERATE /HPF (0-FEW); RBC,URINE OCC /HPF (0-2); SQUAMOUS EPITHELIAL CELL,UR MOD /LPF
[2016-12-16 17:40] LABS: CALCIUM 9.5 mg/dL (8.5-10.1); CREATININE 0.8 mg/dL (0.6-1.0); GFR 106.6; POTASSIUM 3.8 mmol/L (3.5-5.1)
[2016-12-16 17:46] LABS: ALBUMIN 4.3 g/dL (3.4-5.0); DIRECT BILIRUBIN 0.1 mg/dL (0.0-0.2); MAGNESIUM 1.6 mg/dL (1.8-2.4); TOTAL BILIRUBIN 0.4 mg/dL (0.2-1.0); TOTAL PROTEIN 8.3 g/dL (6.4-8.2)
[2016-12-16] MEDS ORDERED: ONDA4TAB10 PO (18:14)
[2016-12-16] MEDS ORDERED: CLON0.2T PO (18:14)
[2016-12-16 18:20] VITALS: BP 108/67
--- NOTE | 2016-12-17 06:09 | EKG ---
[facility] [address] [place] [address] Test Date: 2016-12-16 Test Time: 17:25:42 Pat Name: DAVID GIRALDO Department: Room: Gender: F [employer]: : 1990 Requested By: GISELE BROWNING Order Number: [id number] Reading MD: Mateus Petersen Measurements Intervals [place] Rate: 117 P: 90 MA: 134 QRS: 89 QRSD: 66 T: 73 QT: 310 QTc: 437 Interpretive Statements SINUS TACHYCARDIA BIATRIAL ENLARGEMENT NONSPECIFIC ST-T WAVE CHANGES. RI6.01 Unconfirmed report No previous ECG available for comparison Electronically Signed On 12-22-2016 9:22:23 CDT by Mateus Petersen
== END 2016-12-16 18:20 | disposition home or self-care (01) ==
LOC: ER 16:39
DX: F19.939 Other psychoactive substance use, unspecified with withdrawal, unspecified (principal); J45.909 Unspecified asthma, uncomplicated; G89.29 Other chronic pain; Z91.040 Latex allergy status
CPT/HCPCS: 36415; 80048; 80076; 80305; 81001; 81025; 83735; 85027; 85610; 85730; 87086; 93005; 96361; 96374; 96375; 99285; G0480; J2060; J2405; J7030; 80320; 80329; G0481

== ENCOUNTER 2017-01-17 15:05 | Emergency (ER) | payer OTHER ==
[~2017-01-17] VITALS: Ht 152.4 cm; Wt 54.4 kg
[~2017-01-17 15:05] MED LIST changes: +CLON0.2T PO; +ONDA4TAB10 PO
[2017-01-17] MEDS ORDERED: fentaNYL PF VIAL 100 MCG/2 ML VIAL IV ONE (15:30)
--- NOTE | 2017-01-17 15:40 | PHYS DOC ---
Past Medical History Past Medical History: Asthma, IBS, P.I.D. Additional Past Medical Histor: ulcer, endometriosis, Chronic R leg pain, Chronic Pelvic Pain Past Surgical History: Tonsillectomy, Other Additional Past Surgical Histo: right LOWER leg- compound fx, ENDOMETRIOSIS Alcohol Use: None Drug Use: None Adult General Chief Complaint Chief Complaint: ABDOMINAL PAIN HPI HPI Patient is a 26 year old female who presents with increased abdominal pain over the past 24 hours. Patient has history of endometriosis and had surgery couple months ago for it. Patient states she's had abdominal pain for the past couple months however the past 24 hours the pain has progressively gotten worse with more pain on the left of this versus the right pelvis. Patient notes an increase greenish yellow discharge over the past 24 hours however she states she has not had in her course in over 5 months. Patient had increased nausea and vomiting without diarrhea. Patient denies any fevers. Patient denies any chest pain or shortness of breath. Patient has no other complaints. Pertinent exam findings: Generalized abdominal tenderness with bowel sounds heard in all 4 quadrants, point tenderness left pelvis ED course: Patient was seen and examined in the emergency room CBC, CMP, lipase, UA, and urine break, and urine drug screen, ultrasound non-OB of the pelvis, IV fluids, 100 micrograms of fentanyl were ordered 1754: She was updated on ultrasound results and blood work and the only thing pending is a GC and chlamydia however the patient states she has not been active and over 5 months and does not want to wait for the results nor does she want to be treated prophylactically. Patient states she wants to go home. How long discussion with the patient and regarding pain management for chronic illnesses and recommended she follow up with her family doctor or NEUROCRITICAL CARE PHYSICIAN for pain management. Pertinent results: Pelvic Ultrasound: IMPRESSION: 1. Multiple small follicular cysts in both ovaries compatible with the history of polycystic ovaries. 2. No evidence of ovarian torsion. 3. Trace amount of free fluid in the pelvis. CBC unremarkable CMP unremarkable Urine drug screen positive for opiates UA unremarkable MDM: After reviewing the chart, CC/HPI/PMH, physical exam, [lab results], [ radiological results], I do not believe the patient has acute tubo-ovarian abscess or ovarian torsion warranting further workup and/or admission at this time. I do not believe the patient has emergent medical condition warranting further workup. On reexamination patient is doing better and explained results with the patient. How long discussion about pain management and recommended her NEUROCRITICAL CARE PHYSICIAN or PCP prescribe her pain medication. Patient is stable for discharge. Additional verbal discharge instructions were provided to the patient and that if symptoms get worse or any new symptoms arise that are worrisome to the patient she is to return to the emergency room immediately Review of Systems Review of Systems GEN: Denies fevers, chills, sweats HEENT: Denies blurred vision, sore throat CV: Denies chest pain RESP: Denies shortness of air, cough GI: Abdominal pain, vaginal discharge NEURO: Denies confusion, dizziness MSK: Denies weakness, joint pain/swelling Current Medications Current Medications Current Medications Medications (Trade) Dose Ordered Sig/Luis Start Time Stop Time Status Last Admin Dose Admin Diphenhydramine HCl (Benadryl) 50 mg 1X ONCE 01/17/17 17:15 01/17/17 17:16 DC 01/17/17 17:21 50 MG Fentanyl Citrate (Fentanyl 2ml Vial) 100 mcg 1X ONCE 01/17/17 15:30 01/17/17 15:32 DC 01/17/17 16:14 100 MCG Haloperidol Lactate (Haldol) 2.5 mg 1X ONCE 01/17/17 17:15 01/17/17 17:16 DC 01/17/17 17:24 2.5 MG Sodium Chloride 1,000 ml @ 1,000 mls/hr 1X ONCE 01/17/17 16:00 01/17/17 16:59 DC 01/17/17 16:15 1,000 MLS/HR Allergies Allergies Allergies Coded Allergies Type Severity Reaction Last Updated Verified latex Allergy Severe Anaphylaxis 12/09/16 No Physical Exam Physical Exam GEN.: No apparent distress. Alert and oriented. HEENT: Head is normocephalic, atraumatic NECK: Supple. LUNGS: CTAB. HEART: RRR, S1, S2 present. Peripheral pulses intact ABDOMEN: Soft, generalized tenderness with point tenderness to the left pelvis. Positive bowel sounds. EXTREMITIES: Without any cyanosis. NEUROLOGIC: Normal speech, normal tone PSYCHIATRIC: Normal affect, normal mood. SKIN: No ulcerations Current Patient Data Vital Signs Vital Signs Date Time Temp Pulse Resp B/P (MAP) Pulse Ox O2 Delivery O2 Flow Rate FiO2 01/17/17 17:27 78 16 115/75 (88) 100 01/17/17 16:16 Room Air 01/17/17 15:15 99.2 99.2 Lab Values Laboratory Tests Test 01/17/17 14:27 01/17/17 15:30 POC Urine HCG, Qualitative Hcg negative (Negative) White Blood Count 6.5 x10^3/uL (4.0-11.0) Red Blood Count 4.37 x10^6/uL (3.50-5.40) Hemoglobin 13.7 g/dL (12.0-15.5) Hematocrit 40.9 % (36.0-47.0) Mean Corpuscular Volume 94 fL (79-100) Mean Corpuscular Hemoglobin 31 pg (25-35) Mean Corpuscular Hemoglobin Concent 33 g/dL (31-37) Red Cell Distribution Width 13.8 % (11.5-14.5) Platelet Count 211 x10^3/uL (140-400) Neutrophils (%) (Auto) 41 % (31-73) Lymphocytes (%) (Auto) 41 % (24-48) Monocytes (%) (Auto) 11 % (0-9) H Eosinophils (%) (Auto) 6 % (0-3) H Basophils (%) (Auto) 1 % (0-3) Neutrophils # (Auto) 2.6 x10^3uL (1.8-7.7) Lymphocytes # (Auto) 2.6 x10^3/uL (1.0-4.8) Monocytes # (Auto) 0.7 x10^3/uL (0.0-1.1) Eosinophils # (Auto) 0.4 x10^3/uL (0.0-0.7) Basophils # (Auto) 0.0 x10^3/uL (0.0-0.2) Urine Collection Type Unknown Urine Color Yellow Urine Clarity Cloudy Urine pH 6.0 Urine Specific [place] 1.015 Urine Protein 100 mg/dL (NEG-TRACE) Urine Glucose (UA) Negative mg/dL (NEG) Urine Ketones (Stick) Negative mg/dL (NEG) Urine Blood Negative (NEG) Urine Nitrite Negative (NEG) Urine Bilirubin Negative (NEG) Urine Urobilinogen Dipstick 0.2 mg/dL (0.2 mg/dL) Urine Leukocyte Esterase Negative (NEG) Urine RBC Occ /HPF (0-2) Urine WBC 1-4 /HPF (0-4) Urine Squamous Epithelial Cells Few /LPF Urine Bacteria Few /HPF (0-FEW) Urine Mucus Mod /LPF Sodium Level 142 mmol/L (136-145) Potassium Level 3.8 mmol/L (3.5-5.1) Chloride Level 105 mmol/L (98-107) Carbon Dioxide Level 31 mmol/L (21-32) Anion Gap 6 (6-14) Blood Urea Nitrogen 8 mg/dL (7-20) Creatinine 0.8 mg/dL (0.6-1.0) Estimated GFR (Cockcroft-Gault) 106.6 BUN/Creatinine Ratio 10 (6-20) Glucose Level 87 mg/dL (70-99) Calcium Level 8.1 mg/dL (8.5-10.1) L Total Bilirubin 0.3 mg/dL (0.2-1.0) Aspartate Amino Transferase (AST) 19 U/L (15-37) Alanine Aminotransferase (ALT) 19 U/L (14-59) Alkaline Phosphatase 53 U/L (46-116) Total Protein 7.3 g/dL (6.4-8.2) Albumin 3.8 g/dL (3.4-5.0) Albumin/Globulin Ratio 1.1 (1.0-1.7) Urine Opiates Screen Pos (NEG) Urine Methadone Screen Neg (NEG) Urine Barbiturates Neg (NEG) Urine Phencyclidine Screen Neg (NEG) Urine Amphetamine/Methamphetamine Neg (NEG) Urine Benzodiazepines Screen Neg (NEG) Urine Cocaine Screen Neg (NEG) Urine Cannabinoids Screen Pos (NEG) Urine Ethyl Alcohol Neg (NEG) Laboratory Tests 01/17/17 15:30 Laboratory Tests 01/17/17 15:30 EKG EKG [] Radiology/Procedures Radiology/Procedures Pelvic ultrasound IMPRESSION: 1. Multiple small follicular cysts in both ovaries compatible with the history of polycystic ovaries. 2. No evidence of ovarian torsion. 3. Trace amount of free fluid in the pelvis.[] Course & Med Decision Making Course & Med Decision Making Pertinent Labs and Imaging studies reviewed. (See chart for details) [] Dragon Disclaimer Dragon Disclaimer This electronic medical record was generated, in whole or in part, using a voice recognition dictation system. Departure Departure Impression: Primary Impression: Pelvic pain Additional Impressions: Abdominal pain Narcotic dependence Disposition: HOME, SELF-CARE Condition: STABLE Referrals: MENDY HILL MD (PCP) Patient Instructions: Pelvic Pain, Female Additional Instructions: Please follow up with her family doctor or NEUROCRITICAL CARE PHYSICIAN in the next one to 2 days Problem Qualifiers Additional Impressions: Abdominal pain Abdominal location: unspecified location Qualified Codes: R10.9 - Unspecified abdominal pain LESLIE SHANKS DO Jan 17, 2017 15:40
[2017-01-17 15:41] LABS: BASO % 1 % (0-3); EOS % 6 % (0-3); HEMATOCRIT 40.9 % (36.0-47.0); HEMOGLOBIN 13.7 g/dL (12.0-15.5); LYMPH # 2.6 x10^3/uL (1.0-4.8); LYMPH % 41 % (24-48); MEAN CORPUSCULAR HEMOGLOBIN 31 pg (25-35); MEAN CORPUSCULAR HGB CONC 33 g/dL (31-37); MEAN CORPUSCULAR VOLUME 94 fL (79-100); MONO % 11 % (0-9); NEUT % 41 % (31-73); PLATELET COUNT 211 x10^3/uL (140-400); RED BLOOD COUNT 4.37 x10^6/uL (3.50-5.40); RED CELL DISTRIBUTION WIDTH 13.8 % (11.5-14.5); WHITE BLOOD COUNT 6.5 x10^3/uL (4.0-11.0)
[2017-01-17 15:46] LABS: BILIRUBIN,URINE NEGATIVE (NEG); GLUCOSE,URINE NEGATIVE (NEG); NITRITE,URINE NEGATIVE (NEG); PROTEIN,URINE 100 mg/dL (NEG-TRACE); UROBILINOGEN,URINE 0.2 mg/dL (0.2 mg/dL)
[2017-01-17 15:53] LABS: BARBITURATES NEG (NEG); BENZODIAZEPINES NEG (NEG); CALCIUM 8.1 mg/dL (8.5-10.1); CANNABINOIDS POS (NEG); COCAINE NEG (NEG); CREATININE 0.8 mg/dL (0.6-1.0); GFR 106.6; METHADONE NEG (NEG); OPIATES POS (NEG); PHENCYCLIDINE NEG (NEG); POTASSIUM 3.8 mmol/L (3.5-5.1)
[2017-01-17 15:59] LABS: ALBUMIN 3.8 g/dL (3.4-5.0); ALBUMIN/GLOBULIN RATIO 1.1 (1.0-1.7); TOTAL BILIRUBIN 0.3 mg/dL (0.2-1.0); TOTAL PROTEIN 7.3 g/dL (6.4-8.2)
[2017-01-17] MEDS ORDERED: IV NORMAL SALINE 1000ML BAG 1,000 ML IV ONE (16:00)
[2017-01-17 16:28] LABS: BACTERIA,URINE FEW /HPF (0-FEW); RBC,URINE OCC /HPF (0-2); SQUAMOUS EPITHELIAL CELL,UR FEW /LPF
--- NOTE | 2017-01-17 16:55 | RAD ---
Pelvic ultrasound, 01/17/2017: History: Left-sided pain Transabdominal and transvaginal scans were obtained. The uterus measures 7.4 cm in length. A normal central uterine echo is present. The right ovary measures 4.2 x 3.6 x 2.5 cm while the left ovary measures 3.7 x 1.9 x 2.5 cm. There are multiple small follicular cysts in both ovaries. The largest of these lies on the left and measures 1.4 cm. There is blood flow in both ovaries. No adnexal mass is seen. There is a trace amount of free fluid in the pelvis. This amount of fluid can be on a physiologic basis. IMPRESSION: 1. Multiple small follicular cysts in both ovaries compatible with the history of polycystic ovaries. 2. No evidence of ovarian torsion. 3. Trace amount of free fluid in the pelvis.
[2017-01-17] MEDS ORDERED: HALOPERIDOL LACTATE 5 MG/ML VIAL. IVP ONE (17:15)
[2017-01-17] MEDS ORDERED: diphenhydrAMINE 50 MG/ML VIAL IVP ONE (17:15)
[2017-01-17 17:27] VITALS: BP 115/75
== END 2017-01-17 18:16 | disposition home or self-care (01) ==
LOC: ER 15:05
DX: R10.2 Pelvic and perineal pain (principal); R10.84 Generalized abdominal pain; F11.20 Opioid dependence, uncomplicated; R11.2 Nausea with vomiting, unspecified; N89.8 Other specified noninflammatory disorders of vagina; J45.909 Unspecified asthma, uncomplicated; K58.9 Irritable bowel syndrome, unspecified; G89.29 Other chronic pain; Z91.040 Latex allergy status
CPT/HCPCS: 36415; 76830; 76856; 80053; 80305; 80320; 81001; 81025; 85027; 87491; 87591; 96361; 96374; 96375; 99285; J1200; J1630; J3010; J7030; G0481

== ENCOUNTER 2017-02-07 11:01 | Emergency (ER) | payer OTHER ==
[~2017-02-07] VITALS: Ht 152.4 cm; Wt 49.9 kg
[2017-02-07 11:12] VITALS: BP 124/69
--- NOTE | 2017-02-07 11:46 | PHYS DOC ---
Past Medical History Past Medical History: Asthma, IBS, P.I.D. Additional Past Medical Histor: ulcer, endometriosis, Chronic R leg pain, Chronic Pelvic Pain Past Surgical History: Tonsillectomy, Other Additional Past Surgical Histo: right LOWER leg- compound fx, ENDOMETRIOSIS Alcohol Use: None Drug Use: None Adult General Chief Complaint Chief Complaint: ABDOMINAL PAIN [facility] HPI Patient is a 26 year old female with a history of IBS, endometriosis, pelvic inflammatory disease, who presents today with vaginal bleeding and chronic abdominal pain especially on the left pelvic area for the last 3 days. She states there is no difference between the pain today and had regular pelvic pain. Patient states she started her menstrual cycle 3 days ago. She states she typically does not have a cycle every month because she has an Implanon. She states she has followed up with her RETAIL ADMINISTRATIVE ASSISTANT for chronic endometriosis, she states they did the surgery and could not find any acute findings. Patient has had multiple tests related to her endometriosis. She states they were negative. Review of Systems Review of Systems Constitutional: Denies fever or chills [] Eyes: Denies change in visual acuity, redness, or eye pain [] HENT: Denies nasal congestion or sore throat [] Respiratory: Denies cough or shortness of breath [] Cardiovascular: No additional information not addressed in HPI [] GI: Chronic pelvic pain, vaginal bleeding for 3 days. : Denies dysuria or hematuria [] Musculoskeletal: Denies back pain or joint pain [] Integument: Denies rash or skin lesions [] Neurologic: Denies headache, focal weakness or sensory changes [] Endocrine: Denies polyuria or polydipsia [] Current Medications Current Medications Current Medications Medications (Trade) Dose Ordered Sig/Luis Start Time Stop Time Status Last Admin Dose Admin Fentanyl Citrate (Fentanyl 2ml Vial) 50 mcg 1X ONCE 02/07/17 12:00 02/07/17 12:01 Ondansetron HCl (Zofran Odt) 4 mg 1X ONCE 02/07/17 12:00 02/07/17 12:01 Allergies Allergies Allergies Coded Allergies Type Severity Reaction Last Updated Verified latex Allergy Severe Anaphylaxis 12/09/16 No Physical Exam Physical Exam Constitutional: Well developed, well nourished, no acute distress, non-toxic appearance. [] HENT: Normocephalic, atraumatic, bilateral external ears normal, oropharynx moist, no oral exudates, nose normal. [] Eyes: PERRLA, EOMI, conjunctiva normal, no discharge. [] Neck: Normal range of motion, no tenderness, supple, no stridor. [] Cardiovascular:Heart rate regular rhythm, no murmur [] Lungs & Thorax: Bilateral breath sounds clear to auscultation [] Abdomen: Bowel sounds normal, soft, no tenderness, no masses, no pulsatile masses. [] Skin: Warm, dry, no erythema, no rash. [] Back: No tenderness, no CVA tenderness. [] Extremities: No tenderness, no cyanosis, no clubbing, ROM intact, no edema. [] Neurologic: Alert and oriented X 3, normal motor function, normal sensory function, no focal deficits noted. [] Psychologic: Affect normal, judgement normal, mood normal. [] Current Patient Data Vital Signs Vital Signs Date Time Temp Pulse Resp B/P (MAP) Pulse Ox O2 Delivery O2 Flow Rate FiO2 02/07/17 11:12 98.5 86 18 124/69 (87) 98 Room Air 98.5 EKG EKG [] Radiology/Procedures Radiology/Procedures [] Course & Med Decision Making Course & Med Decision Making Pertinent Labs and Imaging studies reviewed. (See chart for details) This is a 26-year-old female patient well known to this ED for chronic pelvic pain. She presents to the ED with the same pain. She states there is no difference between the pain today and had regular pelvic pain. She is also complaining of vaginal bleeding for 3 days. She has an Implanon on states she does not have regular menstrual cycles. She denied soaking more than 1 feminine pad an hour. Informed patient the previous documentation on December 16, 2016 shows she had been given 45 tablets of oxycodone from another provider and her urine drug screen in the Ed three days later was negative. Informed patient she will not be given any prescription pain medicines from our ED. She was discharged with instructions to follow-up with her own RETAIL ADMINISTRATIVE ASSISTANT as soon as she can. Dragon Disclaimer Dragon Disclaimer This electronic medical record was generated, in whole or in part, using a voice recognition dictation system. Departure Departure Impression: Primary Impression: Pelvic pain Additional Impression: Narcotic dependence Disposition: 01 HOME, SELF-CARE Condition: STABLE Referrals: MENDY HILL MD (PCP) ARPIT BAEZ Jr, MD follow up with your OBGYN as soon as you can Patient Instructions: Abdominal Pain Additional Instructions: You were seen for chronic pelvic pain. You also have dysfunctional uterine bleeding. You have an RETAIL ADMINISTRATIVE ASSISTANT, contact his office today and set up a follow-up appointment. Problem Qualifiers MAX BOO APRN Feb 07, 2017 11:46
[2017-02-07] MEDS ORDERED: fentaNYL PF VIAL 100 MCG/2 ML VIAL IM ONE (12:00)
[2017-02-07] MEDS ORDERED: ONDANSETRON ODT 4 MG TAB.RAPDIS. PO ONE (12:00)
== END 2017-02-07 11:49 | disposition home or self-care (01) ==
LOC: ER 11:01
DX: R10.2 Pelvic and perineal pain (principal); N93.9 Abnormal uterine and vaginal bleeding, unspecified; F11.20 Opioid dependence, uncomplicated; J45.909 Unspecified asthma, uncomplicated; K58.9 Irritable bowel syndrome, unspecified; G89.29 Other chronic pain; Z91.040 Latex allergy status
CPT/HCPCS: 96372; 99283; J3010; Q0162

== ENCOUNTER 2017-02-09 11:19 | Emergency (ER) | payer OTHER ==
[~2017-02-09] VITALS: Ht 152.4 cm; Wt 49.9 kg
[2017-02-09 11:25] VITALS: BP 114/75
[2017-02-09] MEDS ORDERED: oxyCODONE/APAP 10/325 1 TAB TABLET PO ONE (11:45)
--- NOTE | 2017-02-09 11:47 | PHYS DOC ---
Past Medical History Past Medical History: Asthma, IBS, P.I.D. Additional Past Medical Histor: ulcer, endometriosis, Chronic R leg pain, Chronic Pelvic Pain Past Surgical History: Tonsillectomy, Other Additional Past Surgical Histo: right LOWER leg- compound fx, ENDOMETRIOSIS Alcohol Use: None Drug Use: None Adult General Chief Complaint Chief Complaint: ABDOMINAL PAIN HPI HPI Patient is a 26 year old female with history of chronic left pelvic pain, chronic abdominal pain, PID, endometriosis, who presents today complaining of her chronic left pelvic pain. Patient states she signed into the ED just to talk to somebody about her pain. She was seen in the ED by me 2 days ago and I refused to give her any narcotic pain medicine for home use. She states she just came from Dr. Aguilar's office and he advised her to follow-up with GI doctor and pain clinic. Patient states she does not know what to do about her pain because the pain clinic cannot see her right away. Patient denies any nausea vomiting. Patient denies anything new about her pain today. Review of Systems Review of Systems Constitutional: Denies fever or chills [] Eyes: Denies change in visual acuity, redness, or eye pain [] GI: Chronic pelvic pain : Denies dysuria or hematuria [] Musculoskeletal: Denies back pain or joint pain [] Integument: Denies rash or skin lesions [] Neurologic: Denies headache, focal weakness or sensory changes [] Endocrine: Denies polyuria or polydipsia [] Current Medications Current Medications Current Medications Medications (Trade) Dose Ordered Sig/Luis Start Time Stop Time Status Last Admin Dose Admin Oxycodone/ Acetaminophen (Percocet 10/325) 2 tab 1X ONCE 02/09/17 11:45 02/09/17 11:46 Allergies Allergies Allergies Coded Allergies Type Severity Reaction Last Updated Verified latex Allergy Severe Anaphylaxis 12/09/16 No Physical Exam Physical Exam Constitutional: Well developed, well nourished, no acute distress, non-toxic appearance. [] HENT: Normocephalic, atraumatic, bilateral external ears normal, oropharynx moist, no oral exudates, nose normal. [] Abdomen: Bowel sounds normal, soft, no tenderness, no masses, no pulsatile masses. [] Skin: Warm, dry, no erythema, no rash. [] Back: No tenderness, no CVA tenderness. [] Extremities: No tenderness, no cyanosis, no clubbing, ROM intact, no edema. [] Neurologic: Alert and oriented X 3, normal motor function, normal sensory function, no focal deficits noted. [] Psychologic: Affect normal, judgement normal, mood normal. [] Current Patient Data Vital Signs Vital Signs Date Time Temp Pulse Resp B/P (MAP) Pulse Ox O2 Delivery O2 Flow Rate FiO2 02/09/17 11:25 98.3 72 16 114/75 (88) 100 Room Air 98.3 EKG EKG [] Radiology/Procedures Radiology/Procedures [] Course & Med Decision Making Course & Med Decision Making Pertinent Labs and Imaging studies reviewed. (See chart for details) This is a 26-year-old female patient with well known history in this ED for chronic pelvic pain. She just came from her CAN TESTER's office Dr. Aguilar who requested patient to follow up with the pain clinic. Patient states she was also instructed follow up with GI. She states she cannot wait that long and does not know what to do about her pain. Informed patient we will not give her any narcotic prescription pain medicine for home use. I offered her oxycodone PO in the ED. She was reminded to follow up with GI as well as pain clinic. ` Dragon Disclaimer Dragon Disclaimer This electronic medical record was generated, in whole or in part, using a voice recognition dictation system. Departure Departure Impression: Primary Impression: Chronic pelvic pain in female Additional Impression: Narcotic dependence Disposition: 01 HOME, SELF-CARE Condition: STABLE Referrals: MENDY HILL MD (PCP) follow up with your primary care doctor as soon as you can ELLIE MCGEE MD follow up as soon as you can NATALIO GOODWIN MD call the office today and set up a follow up appointment Patient Instructions: Abdominal Pain Additional Instructions: You were seen for chronic pelvic/abdominal pain. Follow-up with a GI doctor as well as the pain clinic as soon as you can. Sorry we cannot give you any narcotic pain medicines in the emergency room for chronic pain for home use. Problem Qualifiers MAX BOO TORI Feb 09, 2017 11:47
== END 2017-02-09 12:01 | disposition home or self-care (01) ==
LOC: ER 11:19
DX: G89.29 Other chronic pain (principal); R10.2 Pelvic and perineal pain; J45.909 Unspecified asthma, uncomplicated; K58.9 Irritable bowel syndrome, unspecified; N73.9 Female pelvic inflammatory disease, unspecified; Z91.040 Latex allergy status
CPT/HCPCS: 99282

== ENCOUNTER 2017-02-24 20:05 | Emergency (ER) | payer OTHER ==
[2017-02-24] MEDS ORDERED: IV NORMAL SALINE 1000ML BAG 1,000 ML IV SCH (20:47)
[2017-02-24 20:59] LABS: BILIRUBIN,URINE NEGATIVE (NEG); GLUCOSE,URINE NEGATIVE (NEG); NITRITE,URINE NEGATIVE (NEG); PROTEIN,URINE 100 mg/dL (NEG-TRACE)
[2017-02-24] MEDS ORDERED: ONDANSETRON PF 4 MG/2 ML VIAL. IV ONE (21:00)
[2017-02-24 21:10] LABS: BASO % 0 % (0-3); EOS % 2 % (0-3); HEMATOCRIT 45.9 % (36.0-47.0); HEMOGLOBIN 15.5 g/dL (12.0-15.5); LYMPH # 3.1 x10^3/uL (1.0-4.8); LYMPH % 33 % (24-48); MEAN CORPUSCULAR HEMOGLOBIN 32 pg (25-35); MEAN CORPUSCULAR HGB CONC 34 g/dL (31-37); MEAN CORPUSCULAR VOLUME 93 fL (79-100); MONO % 8 % (0-9); NEUT % 57 % (31-73); PLATELET COUNT 258 x10^3/uL (140-400); RED BLOOD COUNT 4.92 x10^6/uL (3.50-5.40); RED CELL DISTRIBUTION WIDTH 13.4 % (11.5-14.5); WHITE BLOOD COUNT 9.2 x10^3/uL (4.0-11.0)
[2017-02-24 21:17] LABS: BACTERIA,URINE FEW /HPF (0-FEW); RBC,URINE 0 /HPF (0-2); SQUAMOUS EPITHELIAL CELL,UR OCC /LPF
[2017-02-24 21:18] LABS: CALCIUM 8.8 mg/dL (8.5-10.1); CREATININE 0.8 mg/dL (0.6-1.0); GFR 106.6; POTASSIUM 3.4 mmol/L (3.5-5.1)
[2017-02-24 21:24] LABS: ALBUMIN 4.6 g/dL (3.4-5.0); ALBUMIN/GLOBULIN RATIO 1.2 (1.0-1.7); TOTAL BILIRUBIN 0.5 mg/dL (0.2-1.0); TOTAL PROTEIN 8.4 g/dL (6.4-8.2)
[2017-02-24] MEDS ORDERED: KETOROLAC 15 MG/ML VIAL. IV ONE (22:00)
--- NOTE | 2017-02-24 22:38 | RAD ---
Indication: Chronic pelvic pain and severe left lower quadrant pain for one day. Transabdominal and transvaginal sonography was performed. The uterus measures 8.0 x 5.3 x 4.1 cm. Uterus is retroverted. The endometrium is 4 mm in thickness. No myometrial mass is detected. The right ovary measures 2.9 x 2.7 x 1.7 cm and the left ovary measures 2.2 x 1.9 x 1.7 cm. There is blood flow to both ovaries. No adnexal mass is seen. There is minimal free fluid adjacent to the uterine fundus. IMPRESSION: Unremarkable transabdominal and transvaginal pelvic ultrasound. Electronically signed by: Carlos Max MD (02/24/2017 10:34 PM) [facility]
[2017-02-24 23:20] VITALS: BP 99/65
[2017-02-24] MEDS ORDERED: DICY10CA53 PO (23:27)
[2017-02-24] MEDS ORDERED: NAPR250T2 PO (23:27)
--- NOTE | 2017-02-25 01:52 | ED.ADGEN ---
Past Medical History Past Medical History: Asthma, IBS, P.I.D. Additional Past Medical Histor: ulcer, endometriosis, Chronic R leg pain, Chronic Pelvic Pain Past Surgical History: Tonsillectomy, Other Additional Past Surgical Histo: right LOWER leg- compound fx, ENDOMETRIOSIS Alcohol Use: None Drug Use: None Adult General Chief Complaint Chief Complaint: ABDOMINAL PAIN HPI HPI Patient is a 26 year old woman, with history of chronic pelvic pain, and multiple visits the emergency department for evaluation of the same, history of endometriosis, variant cysts, status post several procedures for treatment of endometriosis, who presents to the emergency department with a complaint of pelvic pain. Patient states the pain is consistent with her previous pain from endometriosis. She states she was seen by her primary care provider today, and was told that if her pain does not improve she come to the ED for additional evaluation. She states that she had a procedure [address] SIMON, for treatment of endometriosis. She states she has not seen him since that time, did not have a pelvic exam today. Patient states that she is not sexually active for the past 6 months "it hurts too much", states that she does have occasional discharge or drainage from the vagina but nothing new recently. She is pain began again about 4 days ago. She's been using ibuprofen at home without relief. Denies any fevers or chills, any insertions or trauma to the vagina, any rectal pain, discharge or diarrhea, any nausea or vomiting, any weakness, numbness, tingling, rashes, urinary complaints. Review of Systems Review of Systems Constitutional: Denies fever or chills. [] Eyes: Denies change in visual acuity. [] HENT: Denies nasal congestion or sore throat. [] Respiratory: Denies cough or shortness of breath. [] Cardiovascular: Denies chest pain or edema. [] GI: Denies abdominal pain, nausea, vomiting, bloody stools or diarrhea. [] : Denies dysuria. Complaining of pelvic pain, with discharge over the past 4 days. Musculoskeletal: Denies back pain or joint pain. [] Integument: Denies rash. [] Neurologic: Denies headache, focal weakness or sensory changes. [] Endocrine: Denies polyuria or polydipsia. [] Lymphatic: Denies swollen glands. [] Psychiatric: Denies depression or anxiety. [] Current Medications Current Medications Current Medications Medications (Trade) Dose Ordered Sig/Luis Start Time Stop Time Status Last Admin Dose Admin Ketorolac Tromethamine (Toradol) 10 mg 1X ONCE 02/24/17 22:00 02/24/17 22:01 DC 02/24/17 21:58 10 MG Ondansetron HCl (Zofran) 4 mg 1X ONCE 02/24/17 21:00 02/24/17 21:01 DC 02/24/17 21:32 4 MG Sodium Chloride 1,000 ml @ 1,000 mls/hr Q1H 02/24/17 20:47 02/24/17 21:46 DC 02/24/17 21:32 1,000 MLS/HR Allergies Allergies Allergies Coded Allergies Type Severity Reaction Last Updated Verified latex Allergy Severe Anaphylaxis 12/09/16 No Physical Exam Physical Exam Constitutional: Well developed, well nourished, no acute distress, non-toxic appearance. [] HENT: Normocephalic, atraumatic, bilateral external ears normal, oropharynx moist, no oral exudates, nose normal. [] Eyes: PERRLA, EOMI, conjunctiva normal, no discharge. [] Neck: Normal range of motion, no tenderness, supple, no stridor. [] Cardiovascular:Heart rate regular rhythm, no murmur, S1, S2, rubs or gallops. [] Lungs & Thorax: Bilateral breath sounds clear to auscultation, no wheezing, rhonchi, rales. No chest wall tenderness or crepitus. [] Abdomen: Bowel sounds normal, soft, tenderness palpation in the pelvic region, no rebound, rigidity, no guarding,, no masses, no pulsatile masses. [] Skin: Warm, dry, no erythema, no rash. [] Back: No tenderness, no CVA tenderness. [] Extremities: No tenderness, no cyanosis, no clubbing, ROM intact, no edema. Negative Homans sign. [] Neurologic: Alert and oriented X 3, normal motor function, normal sensory function, no focal deficits noted. [] Psychologic: Affect normal, judgement normal, mood normal. [] Pelvic examination: External examination is unremarkable. Bimanual examination reveals a closed os, with minimal tenderness to the left adnexa, no masses palpated. No CMT, scant amount of white discharge noted on glove. Speculum examination performed without issue, patient complaining of discomfort during his procedure, visualized cervix was unremarkable, no friability or other abnormality identified. Specimens taken without issue. Current Patient Data Vital Signs Vital Signs Date Time Temp Pulse Resp B/P (MAP) Pulse Ox O2 Delivery O2 Flow Rate FiO2 02/24/17 23:20 86 16 99/65 (76) 100 Room Air 02/24/17 20:21 98.7 98.7 Lab Values Laboratory Tests Test 02/24/17 19:30 02/24/17 20:30 02/24/17 21:02 POC Urine HCG, Qualitative Hcg negative (Negative) Urine Color Soraya Urine Clarity Clear Urine pH 6.0 Urine Specific [place] 1.025 Urine Protein 100 mg/dL (NEG-TRACE) Urine Glucose (UA) Negative mg/dL (NEG) Urine Ketones (Stick) Trace mg/dL (NEG) Urine Blood Negative (NEG) Urine Nitrite Negative (NEG) Urine Bilirubin Negative (NEG) Urine Urobilinogen Dipstick 1.0 mg/dL (0.2 mg/dL) Urine Leukocyte Esterase Trace (NEG) Urine RBC 0 /HPF (0-2) Urine WBC 1-4 /HPF (0-4) Urine Squamous Epithelial Cells Occ /LPF Urine Bacteria Few /HPF (0-FEW) Urine Mucus Mod /LPF White Blood Count 9.2 x10^3/uL (4.0-11.0) Red Blood Count 4.92 x10^6/uL (3.50-5.40) Hemoglobin 15.5 g/dL (12.0-15.5) Hematocrit 45.9 % (36.0-47.0) Mean Corpuscular Volume 93 fL (79-100) Mean Corpuscular Hemoglobin 32 pg (25-35) Mean Corpuscular Hemoglobin Concent 34 g/dL (31-37) Red Cell Distribution Width 13.4 % (11.5-14.5) Platelet Count 258 x10^3/uL (140-400) Neutrophils (%) (Auto) 57 % (31-73) Lymphocytes (%) (Auto) 33 % (24-48) Monocytes (%) (Auto) 8 % (0-9) Eosinophils (%) (Auto) 2 % (0-3) Basophils (%) (Auto) 0 % (0-3) Neutrophils # (Auto) 5.2 x10^3uL (1.8-7.7) Lymphocytes # (Auto) 3.1 x10^3/uL (1.0-4.8) Monocytes # (Auto) 0.7 x10^3/uL (0.0-1.1) Eosinophils # (Auto) 0.2 x10^3/uL (0.0-0.7) Basophils # (Auto) 0.0 x10^3/uL (0.0-0.2) Sodium Level 140 mmol/L (136-145) Potassium Level 3.4 mmol/L (3.5-5.1) L Chloride Level 103 mmol/L (98-107) Carbon Dioxide Level 27 mmol/L (21-32) Anion Gap 10 (6-14) Blood Urea Nitrogen 10 mg/dL (7-20) Creatinine 0.8 mg/dL (0.6-1.0) Estimated GFR (Cockcroft-Gault) 106.6 BUN/Creatinine Ratio 13 (6-20) Glucose Level 96 mg/dL (70-99) Calcium Level 8.8 mg/dL (8.5-10.1) Total Bilirubin 0.5 mg/dL (0.2-1.0) Aspartate Amino Transferase (AST) 18 U/L (15-37) Alanine Aminotransferase (ALT) 25 U/L (14-59) Alkaline Phosphatase 56 U/L (46-116) Total Protein 8.4 g/dL (6.4-8.2) H Albumin 4.6 g/dL (3.4-5.0) Albumin/Globulin Ratio 1.2 (1.0-1.7) Lipase 158 U/L (73-393) Laboratory Tests 02/24/17 21:02 Laboratory Tests 02/24/17 21:02 Microbiology 02/24/17 Wet Prep - Final, Complete EKG EKG Not indicated. [] Radiology/Procedures Radiology/Procedures [][facility] [address] [place] [address] IMAGING REPORT Signed PATIENT: DAVID GIRALDO ACCOUNT: [id number] : 1990 LOCATION: ER AGE: 26 SEX: F EXAM STATUS: REG ER ORD. PHYSICIAN: SYLVIA HAMILTON DO REASON: Pelvic pain PROCEDURE: PELVIS W/TV Indication: Chronic pelvic pain and severe left lower quadrant pain for one day. Transabdominal and transvaginal sonography was performed. The uterus measures 8.0 x 5.3 x 4.1 cm. Uterus is retroverted. The endometrium is 4 mm in thickness. No myometrial mass is detected. The right ovary measures 2.9 x 2.7 x 1.7 cm and the left ovary measures 2.2 x 1.9 x 1.7 cm. There is blood flow to both ovaries. No adnexal mass is seen. There is minimal free fluid adjacent to the uterine fundus. IMPRESSION: Unremarkable transabdominal and transvaginal pelvic ultrasound. Electronically signed by: Carlos Max MD (02/24/2017 10:34 PM) [facility] DICTATED and SIGNED BY: CARLOS MAX MD DATE: 02/24/172232 CC: SYLVIA HAMILTON DO; MENDY HILL MD ~ Course & Med Decision Making Course & Med Decision Making Pertinent Labs and Imaging studies reviewed. (See chart for details) Due to patient's complaint of severe left-sided pain, with history of ovarian cyst, ultrasound of the uterus and ovaries obtained to rule out torsion or other concerning finding. Ultrasound was unremarkable, laboratory studies within normal limits, and wet prep was negative for concerning findings. Patient 's GC and chlamydia are pending, patient states that she has not been sexually active since before the last time she received a full cup limited testing with her OB, and declined any possibility of STI exposure. Patient's previous ED visits reviewed, patient has been seen in the ED for this issue multiple times, recommendations from Dr. Aguilar that the patient follow up with GI, and with pain management reviewed with patient, she was given contact information for GI and PMR, along prescription for Bentyl and naproxen. 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 Patient voiced understanding and agreement, discharged home in stable condition with Sulaiman with plan and prescriptions, and precautions as above. Dragon Disclaimer Dragon Disclaimer This electronic medical record was generated, in whole or in part, using a voice recognition dictation system. Departure Impression: Primary Impression: Chronic pelvic pain in female Disposition: 01 HOME, SELF-CARE Condition: STABLE Scripts Dicyclomine Hcl (BENTYL) 10 Mg Capsule 10 MG PO QID Y for PAIN, #12 TAB Prov: SYLVIA HAMILTON DO 02/24/17 Naproxen (NAPROXEN) 250 Mg Tablet 250 MG PO PRN BID Y for PAIN, #12 Prov: SYLVIA HAMILTON DO 02/24/17 SYLVIA HAMILTON DO Feb 25, 2017 01:52
== END 2017-02-24 23:45 | disposition home or self-care (01) ==
LOC: ER 20:05
DX: G89.29 Other chronic pain (principal); R10.2 Pelvic and perineal pain; K58.9 Irritable bowel syndrome, unspecified; J45.909 Unspecified asthma, uncomplicated; N73.9 Female pelvic inflammatory disease, unspecified; Z91.040 Latex allergy status
CPT/HCPCS: 36415; 76830; 76856; 80053; 81001; 81025; 83690; 85027; 87086; 87491; 87591; 96361; 96374; 96375; 99285; J1885; J2405; J7030; Q0111

== ENCOUNTER 2017-03-30 15:37 | Emergency (ER) | payer OTHER ==
[~2017-03-30] VITALS: Ht 152.4 cm; Wt 52.2 kg
[~2017-03-30 15:37] MED LIST changes: +DICY10CA53 PO; +NAPR250T6 PO
[2017-03-30 16:49] VITALS: BP 142/91
--- NOTE | 2017-03-30 16:51 | PHYS DOC ---
Past Medical History Past Medical History: Asthma, IBS, P.I.D. Additional Past Medical Histor: ulcer, endometriosis, Chronic R leg pain, Chronic Pelvic Pain Past Surgical History: Tonsillectomy, Other Additional Past Surgical Histo: right LOWER leg- compound fx, ENDOMETRIOSIS Alcohol Use: None Drug Use: None Adult General Chief Complaint Chief Complaint: PAIN CONTROL HPI HPI Patient is a 26 year old -[place] female who presents with sitting pain. She states it's her normal pain that she was has. She states that she is trying take time off work and not work as much it is sometimes make the pain worse. She denies any dysuria, vaginal bleeding. She was seen by Dr. Hawkins and was given some narcotic pain medicine that she's ran out of it. She has an appointment with Dr. Brooks next Tuesday. She states she doesn't feel like she needs a complete workup because this is same pain that she is always having. She states she's she did take 2 Aleve this morning and then 500 of Naprosyn at around noontime. Review of Systems Review of Systems Constitutional: Denies fever or chills [] Eyes: Denies change in visual acuity, redness, or eye pain [] HENT: Denies nasal congestion or sore throat [] Respiratory: Denies cough or shortness of breath [] Cardiovascular: No additional information not addressed in HPI [] GI: Denies abdominal pain, nausea, vomiting, bloody stools or diarrhea [] : Denies dysuria or hematuria [] Musculoskeletal: Denies back pain or joint pain [] Integument: Denies rash or skin lesions [] Neurologic: Denies headache, focal weakness or sensory changes [] Endocrine: Denies polyuria or polydipsia [] Current Medications Current Medications Current Medications Medications (Trade) Dose Ordered Sig/Luis Start Time Stop Time Status Last Admin Dose Admin Oxycodone HCl (Roxicodone) 10 mg 1X ONCE 03/30/17 17:15 03/30/17 17:16 DC 03/30/17 17:08 10 MG Allergies Allergies Allergies Coded Allergies Type Severity Reaction Last Updated Verified latex Allergy Severe Anaphylaxis 03/30/17 No Physical Exam Physical Exam Constitutional: Well developed, well nourished, no acute distress, non-toxic appearance. [] HENT: Normocephalic, atraumatic, bilateral external ears normal, oropharynx moist, no oral exudates, nose normal. [] Eyes: PERRLA, EOMI, conjunctiva normal, no discharge. [] Neck: Normal range of motion, no tenderness, supple, no stridor. [] Cardiovascular:Heart rate regular rhythm, no murmur [] Lungs & Thorax: Bilateral breath sounds clear to auscultation [] Abdomen: Bowel sounds normal, soft, tender palpation superpubic area, no rebound or guarding, no masses, no pulsatile masses. [] Skin: Warm, dry, no erythema, no rash. [] Back: No tenderness, no CVA tenderness. [] Extremities: No tenderness, no cyanosis, no clubbing, ROM intact, no edema. [] Neurologic: Alert and oriented X 3, normal motor function, normal sensory function, no focal deficits noted. [] Psychologic: Affect normal, judgement normal, mood normal. [] Current Patient Data Vital Signs Vital Signs Date Time Temp Pulse Resp B/P (MAP) Pulse Ox O2 Delivery O2 Flow Rate FiO2 03/30/17 16:49 98.3 88 18 97 Room Air 98.3 Lab Values Laboratory Tests Test 03/30/17 16:56 POC Urine HCG, Qualitative Hcg negative (Negative) EKG EKG [] Radiology/Procedures Radiology/Procedures [] Impressions: Chronic Abdominal pain Course & Med Decision Making Course & Med Decision Making Pertinent Labs and Imaging studies reviewed. (See chart for details) We had long conversation regarding her workup and she states that she doesn't need all that since his same pain. She denies any serious abnormality's at this time such as dysuria or vaginal bleeding fevers nausea or vomiting. She is to follow-up with Dr. Brooks and try to get her appointment moved up in addition to talk to Dr. Hawkins. She was given 25 mg oxycodone and is being discharged at this time. Return precautions given. Dragon Disclaimer Dragon Disclaimer This electronic medical record was generated, in whole or in part, using a voice recognition dictation system. Departure Departure Impression: Primary Impression: Abdominal pain Disposition: HOME, SELF-CARE Condition: STABLE Referrals: MENDY HILL MD (PCP) Patient Instructions: Endometriosis Additional Instructions: You were seen today for your abdominal pain. You received 10 mg of oxycodone being discharged home. Please call Dr. Hawkins and Dr. Brooks and follow-up with him. Your pain gets severe, you have uncontrolled nausea vomiting or other concerns please return back to emergency department. Problem Qualifiers Primary Impression: Abdominal pain Abdominal location: unspecified location Qualified Codes: R10.9 - Unspecified abdominal pain BULMARO REYES MD Mar 30, 2017 16:51
[2017-03-30] MEDS ORDERED: oxyCODONE IR 5 MG TABLET PO ONE ×2 (17:15→17:45)
== END 2017-03-30 17:45 | disposition home or self-care (01) ==
LOC: ER 15:37
DX: G89.29 Other chronic pain (principal); R10.30 Lower abdominal pain, unspecified; J45.909 Unspecified asthma, uncomplicated; K58.9 Irritable bowel syndrome, unspecified; Z91.040 Latex allergy status
CPT/HCPCS: 81025; 99283; 99284; 99285-25

== ENCOUNTER 2017-03-31 15:12 | Emergency (ER) | payer OTHER ==
[~2017-03-31] VITALS: Ht 152.4 cm; Wt 49.9 kg
[2017-03-31 15:25] VITALS: BP 140/97
--- NOTE | 2017-03-31 15:38 | PHYS DOC ---
Past Medical History Past Medical History: Asthma, IBS, P.I.D. Additional Past Medical Histor: ulcer, endometriosis, Chronic R leg pain, Chronic Pelvic Pain Past Surgical History: Tonsillectomy, Other Additional Past Surgical Histo: right LOWER leg- compound fx, ENDOMETRIOSIS Alcohol Use: None Drug Use: None Adult General Chief Complaint Chief Complaint: PAIN CONTROL [facility] HPI Patient is a 26 year old female presents to the emergency department with complaints of her chronic pelvic pain. Patient was evaluated yesterday in the emergency department for same complaint. She is well-known to the emergency department for complaints of chronic pelvic pain. Patient reports that she has an appointment with Dr. Brooks, PROVIDER RELATIONS REPRESENTATIVE in 4 days. She reports that she has an appointment with her primary care physician, Dr. Gupta, on 14 April. Patient states that she has been on oxycodone for her chronic pain. She states she was given a prescription by Dr. Gupta, for oxycodone 10, number enough to last until her appointment with Dr. Brooks. Patient states that she has used that entire prescription. Patient today reports that her pain is typical of her chronic pelvic pain. She is requesting a pain pill without workup. Patient states it is her normal pain and she has an appointment with her doctor on Tuesday. Review of Systems Review of Systems Constitutional: Denies fever or chills [] Eyes: Denies change in visual acuity, redness, or eye pain [] HENT: Denies nasal congestion or sore throat [] Respiratory: Denies cough or shortness of breath [] Cardiovascular: No additional information not addressed in HPI [] GI: Denies abdominal pain, nausea, vomiting, bloody stools or diarrhea [] : Denies dysuria or hematuria, chronic pelvic pain[] Musculoskeletal: Denies back pain or joint pain [] Integument: Denies rash or skin lesions [] Neurologic: Denies headache, focal weakness or sensory changes [] Endocrine: Denies polyuria or polydipsia [] Current Medications Current Medications Current Medications Medications (Trade) Dose Ordered Sig/Luis Start Time Stop Time Status Last Admin Dose Admin Oxycodone/ Acetaminophen (Percocet 5/325) 1 tab 1X ONCE 03/31/17 15:45 03/31/17 15:46 Allergies Allergies Allergies Coded Allergies Type Severity Reaction Last Updated Verified latex Allergy Severe Anaphylaxis 9/13/17 No Physical Exam Physical Exam Constitutional: Well developed, well nourished, no acute distress, non-toxic appearance. [] HENT: Normocephalic, atraumatic, bilateral external ears normal, oropharynx moist, no oral exudates, nose normal. [] Eyes: PERRLA, EOMI, conjunctiva normal, no discharge. [] Neck: Normal range of motion, no tenderness, supple, no stridor. [] Cardiovascular:Heart rate regular rhythm, no murmur [] Lungs & Thorax: Bilateral breath sounds clear to auscultation [] Abdomen: Bowel sounds normal, soft, no tenderness, no masses, no pulsatile masses : pt refused [] Skin: Warm, dry, no erythema, no rash. [] Back: No tenderness, no CVA tenderness. [] Neurologic: Alert and oriented X 3, normal motor function, normal sensory function, no focal deficits noted. [] Psychologic: Affect normal, judgement normal, mood normal. [] Current Patient Data Vital Signs Vital Signs Date Time Temp Pulse Resp B/P (MAP) Pulse Ox O2 Delivery O2 Flow Rate FiO2 03/31/17 15:25 99.1 95 16 97 Room Air 99.1 EKG EKG [] Radiology/Procedures Radiology/Procedures [] Course & Med Decision Making Course & Med Decision Making Pertinent Labs and Imaging studies reviewed. (See chart for details) []I discussed with the patient use of chronic pain medications. She was advised that the emergency department is not an access for continued refills of her chronic use medications. We discussed misappropriation of her medications. Patient does verbalize understanding. She states that she feels as if everyone think she is drug seeking, but she does not have any intent. Dragon Disclaimer Dragon Disclaimer This electronic medical record was generated, in whole or in part, using a voice recognition dictation system. Departure Departure Impression: Primary Impression: Chronic pelvic pain in female Disposition: 01 HOME, SELF-CARE Condition: STABLE Referrals: MENDY GUPTA MD (PCP) Patient Instructions: Chronic Pain, Chronic Pain Management Additional Instructions: Follow up with Dr. Gupta tomorrow MIGUEL ELDER APRN Mar 31, 2017 15:38
[2017-03-31] MEDS ORDERED: oxyCODONE/APAP 5/325 1 TAB TABLET PO ONE (15:45)
== END 2017-03-31 15:43 | disposition home or self-care (01) ==
LOC: ER 15:12
DX: G89.29 Other chronic pain (principal); R10.2 Pelvic and perineal pain; J45.909 Unspecified asthma, uncomplicated; K58.9 Irritable bowel syndrome, unspecified; Z91.040 Latex allergy status
CPT/HCPCS: 99282

== ENCOUNTER 2017-07-25 11:01 | Emergency (ER) | payer OTHER ==
[2017-07-25 12:20] LABS: URINE HCG POC HCG NEGATIVE (Negative)
[2017-07-25] MEDS: KETOROLAC 30 MG/ML INJ. IV (13:00)
[2017-07-25 13:03] LABS: BILIRUBIN,URINE NEGATIVE (NEG); CLARITY,URINE CLEAR; COLOR,URINE YELLOW; GLUCOSE,URINE NEGATIVE (NEG); NITRITE,URINE NEGATIVE (NEG); PROTEIN,URINE NEGATIVE (NEG-TRACE); UROBILINOGEN,URINE 0.2 mg/dL (0.2 mg/dL)
[2017-07-25 13:15] LABS: ADD MAN DIFF? NO
[2017-07-25 13:16] LABS: BACTERIA,URINE FEW /HPF (0-FEW); RBC,URINE OCC /HPF (0-2); SQUAMOUS EPITHELIAL CELL,UR MOD /LPF; WBC,URINE OCC /HPF (0-4)
[2017-07-25 13:26] LABS: BASO # 0.1 x10^3/uL (0.0-0.2); BASO % 1 % (0-3); EOS # 0.2 x10^3/uL (0.0-0.7); EOS % 3 % (0-3); HEMATOCRIT 45.4 % (36.0-47.0); LYMPH # 2.8 x10^3/uL (1.0-4.8); LYMPH % 38 % (24-48); MEAN CORPUSCULAR HEMOGLOBIN 31 pg (25-35); MEAN CORPUSCULAR HGB CONC 33 g/dL (31-37); MEAN CORPUSCULAR VOLUME 95 fL (79-100); MONO # 0.6 x10^3/uL (0.0-1.1); MONO % 8 % (0-9); NEUT # 3.7 x10^3uL (1.8-7.7); NEUT % 50 % (31-73); PLATELET COUNT 254 x10^3/uL (140-400); RED BLOOD COUNT 4.79 x10^6/uL (3.50-5.40); RED CELL DISTRIBUTION WIDTH 13.8 % (11.5-14.5); WHITE BLOOD COUNT 7.4 x10^3/uL (4.0-11.0)
[2017-07-25 13:32] LABS: ANION GAP 8 (6-14); BLOOD UREA NITROGEN 12 mg/dL (7-20); BUN/CREATININE RATIO 20 (6-20); CALCIUM 8.8 mg/dL (8.5-10.1); CARBON DIOXIDE 29 mmol/L (21-32); CHLORIDE 102 mmol/L (98-107); CREATININE 0.6 mg/dL (0.6-1.0); GFR 147.4; GLUCOSE 93 mg/dL (70-99); POTASSIUM 3.9 mmol/L (3.5-5.1); SODIUM 139 mmol/L (136-145)
[2017-07-25 13:39] LABS: ALBUMIN 4.2 g/dL (3.4-5.0); ALBUMIN/GLOBULIN RATIO 1.2 (1.0-1.7); ALK PHOS 51 U/L (46-116); ALT (SGPT) 18 U/L (14-59); AST (SGOT) 14 U/L (15-37); LIPASE 174 U/L (73-393); MAGNESIUM 1.8 mg/dL (1.8-2.4); TOTAL BILIRUBIN 0.3 mg/dL (0.2-1.0); TOTAL PROTEIN 7.8 g/dL (6.4-8.2)
[2017-07-25] MEDS: HYDROcodone/APAP 5/325MG 1 TAB TABLET PO (13:49)
== END 2017-07-25 16:21 | disposition home or self-care (01) ==
LOC: ER 11:01
DX: R10.32 Left lower quadrant pain (principal); G89.29 Other chronic pain; M79.652 Pain in left thigh; M54.9 Dorsalgia, unspecified; K58.9 Irritable bowel syndrome, unspecified; J45.909 Unspecified asthma, uncomplicated; Z91.040 Latex allergy status
CPT/HCPCS: 36415; 72131; 76830; 76856; 80053; 81001; 81025; 83690; 83735; 85025; 99285-25

== ENCOUNTER 2017-08-10 07:36 | Emergency (ER) | payer OTHER ==
[2017-08-10 07:51] LABS: URINE HCG POC HCG NEGATIVE (Negative)
[2017-08-10] MEDS: oxyCODONE/APAP 5/325 1 TAB TABLET PO (08:08)
[2017-08-10] MEDS: ONDANSETRON ODT 4 MG TAB.RAPDIS. PO (08:08)
[2017-08-10 08:38] LABS: BILIRUBIN,URINE NEGATIVE (NEG); CLARITY,URINE CLEAR; COLOR,URINE YELLOW; GLUCOSE,URINE NEGATIVE (NEG); NITRITE,URINE NEGATIVE (NEG); PH,URINE 5.5; PROTEIN,URINE NEGATIVE (NEG-TRACE); UROBILINOGEN,URINE 0.2 mg/dL (0.2 mg/dL)
[2017-08-10 08:47] LABS: BACTERIA,URINE FEW /HPF (0-FEW); RBC,URINE RARE /HPF (0-2); SQUAMOUS EPITHELIAL CELL,UR FEW /LPF; WBC,URINE OCC /HPF (0-4)
[2017-08-10] MEDS: oxyCODONE ER 10 MG TAB.ER.12H PO (08:49)
[2017-08-10] MEDS ORDERED: oxyCODONE ER 10 MG TAB.ER.12H PO (09:00)
== END 2017-08-10 08:58 | disposition home or self-care (01) ==
LOC: ER 07:36
DX: R10.32 Left lower quadrant pain (principal); F11.23 Opioid dependence with withdrawal; F11.10 Opioid abuse, uncomplicated; T40.2X5A Adverse effect of other opioids, initial encounter; J45.909 Unspecified asthma, uncomplicated; Z91.040 Latex allergy status; Y92.89 Other specified places as the place of occurrence of the external cause
CPT/HCPCS: 81001; 81025; 93005; 99285; Q0162

== ENCOUNTER 2017-08-22 11:57 | Emergency (ER) | payer OTHER ==
[2017-08-22] MEDS ORDERED: 0.9 % SODIUM CHLORIDE 10 ML DISP.SYRIN. IV ×2 (12:15)
[2017-08-22 12:26] LABS: ADD MAN DIFF? NO
[2017-08-22 12:27] LABS: BILIRUBIN,URINE SMALL (NEG); CLARITY,URINE CLEAR; COLOR,URINE AMBER; GLUCOSE,URINE NEGATIVE (NEG); NITRITE,URINE NEGATIVE (NEG); PH,URINE 6.5; PROTEIN,URINE 30 mg/dL (NEG-TRACE)
[2017-08-22 12:33] LABS: BASO # 0.1 x10^3/uL (0.0-0.2); BASO % 1 % (0-3); EOS # 0.1 x10^3/uL (0.0-0.7); EOS % 1 % (0-3); HEMATOCRIT 46.1 % (36.0-47.0); HEMOGLOBIN 15.5 g/dL (12.0-15.5); LYMPH # 2.1 x10^3/uL (1.0-4.8); LYMPH % 22 % (24-48); MEAN CORPUSCULAR HEMOGLOBIN 31 pg (25-35); MEAN CORPUSCULAR HGB CONC 34 g/dL (31-37); MEAN CORPUSCULAR VOLUME 93 fL (79-100); MONO # 0.7 x10^3/uL (0.0-1.1); MONO % 7 % (0-9); NEUT # 6.8 x10^3uL (1.8-7.7); NEUT % 70 % (31-73); PLATELET COUNT 345 x10^3/uL (140-400); RED BLOOD COUNT 4.95 x10^6/uL (3.50-5.40); RED CELL DISTRIBUTION WIDTH 13.8 % (11.5-14.5); WHITE BLOOD COUNT 9.7 x10^3/uL (4.0-11.0)
[2017-08-22] MEDS: KETOROLAC 30 MG/ML INJ. IV ×2 (12:35)
[2017-08-22 12:36] LABS: BACTERIA,URINE 0 /HPF (0-FEW); SQUAMOUS EPITHELIAL CELL,UR MOD /LPF; WBC,URINE 0 /HPF (0-4)
[2017-08-22] MEDS: ONDANSETRON PF 4 MG/2 ML VIAL. IV ×2 (12:36)
[2017-08-22] MEDS: MORPHINE SULFATE 4 MG/ML DISP.SYRIN. IV/SQ ×6 (12:36→13:53)
[2017-08-22 12:37] LABS: ANION GAP 13 (6-14); BLOOD UREA NITROGEN 12 mg/dL (7-20); CALCIUM 9.4 mg/dL (8.5-10.1); CARBON DIOXIDE 26 mmol/L (21-32); CHLORIDE 99 mmol/L (98-107); CREATININE 0.7 mg/dL (0.6-1.0); GFR 123.4; GLUCOSE 103 mg/dL (70-99); POTASSIUM 3.7 mmol/L (3.5-5.1); SODIUM 138 mmol/L (136-145)
[2017-08-22] MEDS: IV NORMAL SALINE 1000ML BAG 1,000 ML IV ×2 (12:37)
[2017-08-22 12:38] LABS: LIPASE 137 U/L (73-393)
[2017-08-22] MEDS ORDERED: CONTRAST GIVEN MC ×2 (12:45)
[2017-08-22 12:51] LABS: CKMB MASS < 0.5 ng/mL (0.0-3.6); CREATINE KINASE 98 U/L (26-192)
[2017-08-22] MEDS: IOHEXOL 300 MG/ML 100ML VIAL. IV ×2 (13:12)
== END 2017-08-22 14:32 | disposition home or self-care (01) ==
LOC: ER 11:57
DX: R10.32 Left lower quadrant pain (principal); G89.29 Other chronic pain; R10.2 Pelvic and perineal pain; K58.0 Irritable bowel syndrome with diarrhea; J45.909 Unspecified asthma, uncomplicated; Z91.040 Latex allergy status
CPT/HCPCS: 36415; 74177; 80048; 81001; 82553; 83690; 85025; 96361; 96374; 96375; 96376; 99285-25; J1885; J2270; J2405; J7030; Q9967

== ENCOUNTER 2017-10-03 15:02 | Emergency (ER) | payer OTHER ==
[2017-10-03 15:22] LABS: URINE HCG POC HCG NEGATIVE (Negative)
[2017-10-03 15:27] LABS: BILIRUBIN,URINE NEGATIVE (NEG); CLARITY,URINE CLEAR; COLOR,URINE YELLOW; GLUCOSE,URINE NEGATIVE (NEG); NITRITE,URINE NEGATIVE (NEG); PH,URINE 6.5; PROTEIN,URINE NEGATIVE (NEG-TRACE); UROBILINOGEN,URINE 0.2 mg/dL (0.2 mg/dL)
[2017-10-03 15:42] LABS: RBC,URINE 0 /HPF (0-2)
[2017-10-03 15:43] LABS: BACTERIA,URINE 0 /HPF (0-FEW); SQUAMOUS EPITHELIAL CELL,UR FEW /LPF
[2017-10-03] MEDS: KETOROLAC 30 MG/ML INJ. IV (15:45)
[2017-10-03] MEDS: ONDANSETRON PF 4 MG/2 ML VIAL. IV (16:04)
[2017-10-03 16:12] LABS: ADD MAN DIFF? NO
[2017-10-03 16:14] LABS: BASO # 0.1 x10^3/uL (0.0-0.2); BASO % 1 % (0-3); EOS # 0.1 x10^3/uL (0.0-0.7); EOS % 2 % (0-3); HEMOGLOBIN 15.1 g/dL (12.0-15.5); LYMPH # 3.2 x10^3/uL (1.0-4.8); LYMPH % 36 % (24-48); MEAN CORPUSCULAR HEMOGLOBIN 31 pg (25-35); MEAN CORPUSCULAR HGB CONC 34 g/dL (31-37); MEAN CORPUSCULAR VOLUME 93 fL (79-100); MONO # 0.7 x10^3/uL (0.0-1.1); MONO % 8 % (0-9); NEUT # 4.7 x10^3uL (1.8-7.7); NEUT % 53 % (31-73); PLATELET COUNT 263 x10^3/uL (140-400); RED BLOOD COUNT 4.83 x10^6/uL (3.50-5.40); RED CELL DISTRIBUTION WIDTH 13.2 % (11.5-14.5); WHITE BLOOD COUNT 8.8 x10^3/uL (4.0-11.0)
[2017-10-03] MEDS: fentaNYL PF VIAL 100 MCG/2 ML VIAL IV (16:29)
[2017-10-03 16:46] LABS: ANION GAP 8 (6-14); BLOOD UREA NITROGEN 13 mg/dL (7-20); BUN/CREATININE RATIO 16 (6-20); CALCIUM 9.4 mg/dL (8.5-10.1); CARBON DIOXIDE 26 mmol/L (21-32); CHLORIDE 99 mmol/L (98-107); CREATININE 0.8 mg/dL (0.6-1.0); GFR 105.8; GLUCOSE 91 mg/dL (70-99); POTASSIUM 3.3 mmol/L (3.5-5.1); SODIUM 133 mmol/L (136-145)
[2017-10-03 16:53] LABS: ALBUMIN 4.6 g/dL (3.4-5.0); ALBUMIN/GLOBULIN RATIO 1.1 (1.0-1.7); ALK PHOS 61 U/L (46-116); ALT (SGPT) 20 U/L (14-59); AST (SGOT) 17 U/L (15-37); TOTAL BILIRUBIN 0.5 mg/dL (0.2-1.0); TOTAL PROTEIN 8.9 g/dL (6.4-8.2)
== END 2017-10-03 17:34 | disposition home or self-care (01) ==
LOC: ER 15:02
DX: R10.32 Left lower quadrant pain (principal); R11.2 Nausea with vomiting, unspecified; R19.7 Diarrhea, unspecified; N89.8 Other specified noninflammatory disorders of vagina; K58.9 Irritable bowel syndrome, unspecified; J45.909 Unspecified asthma, uncomplicated; N87.9 Dysplasia of cervix uteri, unspecified; G89.29 Other chronic pain; F11.10 Opioid abuse, uncomplicated; Z91.040 Latex allergy status
CPT/HCPCS: 36415; 76830; 76856; 80053; 81001; 81025; 85025; 96374; 96375; 99285-25; J1885; J2405; J3010

== ENCOUNTER 2017-10-21 23:49 | Inpatient (IN) | payer OTHER ==
[2017-10-22 00:12] LABS: ADD MAN DIFF? NO
[2017-10-22] MEDS: IV NORMAL SALINE 1000ML BAG 1,000 ML IV ×4 (00:15→18:35)
[2017-10-22] MEDS: fentaNYL PF VIAL 100 MCG/2 ML VIAL IV ×8 (00:15→23:14)
[2017-10-22] MEDS: ONDANSETRON PF 4 MG/2 ML VIAL. IV (00:15)
[2017-10-22] MEDS: KETOROLAC 30 MG/ML INJ. IV ×4 (00:15→23:09)
[2017-10-22 00:17] LABS: BASO % 1 % (0-3); EOS # 0.2 x10^3/uL (0.0-0.7); EOS % 2 % (0-3); HEMATOCRIT 40.9 % (36.0-47.0); HEMOGLOBIN 14.1 g/dL (12.0-15.5); LYMPH # 3.8 x10^3/uL (1.0-4.8); LYMPH % 48 % (24-48); MEAN CORPUSCULAR HEMOGLOBIN 32 pg (25-35); MEAN CORPUSCULAR HGB CONC 34 g/dL (31-37); MEAN CORPUSCULAR VOLUME 94 fL (79-100); MONO # 0.6 x10^3/uL (0.0-1.1); MONO % 7 % (0-9); NEUT # 3.3 x10^3uL (1.8-7.7); NEUT % 42 % (31-73); PLATELET COUNT 245 x10^3/uL (140-400); RED BLOOD COUNT 4.35 x10^6/uL (3.50-5.40); RED CELL DISTRIBUTION WIDTH 13.6 % (11.5-14.5)
[2017-10-22 00:22] LABS: ANION GAP 12 (6-14); BLOOD UREA NITROGEN 10 mg/dL (7-20); BUN/CREATININE RATIO 13 (6-20); CALCIUM 8.7 mg/dL (8.5-10.1); CARBON DIOXIDE 27 mmol/L (21-32); CHLORIDE 104 mmol/L (98-107); CREATININE 0.8 mg/dL (0.6-1.0); GFR 105.8; GLUCOSE 111 mg/dL (70-99); POTASSIUM 3.7 mmol/L (3.5-5.1); SODIUM 143 mmol/L (136-145)
[2017-10-22 00:28] LABS: ALBUMIN 4.1 g/dL (3.4-5.0); ALBUMIN/GLOBULIN RATIO 1.1 (1.0-1.7); ALK PHOS 50 U/L (46-116); ALT (SGPT) 22 U/L (14-59); AST (SGOT) 19 U/L (15-37); TOTAL BILIRUBIN 0.3 mg/dL (0.2-1.0); TOTAL PROTEIN 7.7 g/dL (6.4-8.2)
[2017-10-22 00:32] LABS: BILIRUBIN,URINE NEGATIVE (NEG); CLARITY,URINE CLEAR; COLOR,URINE YELLOW; GLUCOSE,URINE NEGATIVE (NEG); NITRITE,URINE NEGATIVE (NEG); PH,URINE 6.5; PROTEIN,URINE NEGATIVE (NEG-TRACE); UROBILINOGEN,URINE 0.2 mg/dL (0.2 mg/dL)
[2017-10-22 00:33] LABS: URINE HCG POC HCG NEGATIVE (Negative)
[2017-10-22 00:36] LABS: BACTERIA,URINE FEW /HPF (0-FEW); RBC,URINE >40 /HPF (0-2)
[2017-10-22 00:37] LABS: SQUAMOUS EPITHELIAL CELL,UR FEW /LPF
[2017-10-22] MEDS ORDERED: MORPHINE SULFATE 10 MG/ML VIAL. (01:30)
[2017-10-22] MEDS: MORPHINE SULFATE 4 MG/ML DISP.SYRIN. IV/SQ ×3 (02:20→03:33)
[2017-10-22] MEDS ORDERED: ACETAMINOPHEN 325 MG TABLET. PO (02:30)
[2017-10-22] MEDS ORDERED: ONDANSETRON PF 4 MG/2 ML VIAL. IV ×2 (02:30→08:00)
[2017-10-22] MEDS: MORPHINE SULFATE 4 MG/ML DISP.SYRIN. IV ×8 (03:50→22:04)
[2017-10-22] MEDS ORDERED: ONDANSETRON ODT 4 MG TAB.RAPDIS. PO (08:00)
[2017-10-22] MEDS ORDERED: ALBUTEROL SULFATE 2.5 MG/3 ML NEBU. NEB (08:00)
[2017-10-22] MEDS ORDERED: cloNIDine HCL 0.2 MG TABLET PO (08:00)
[2017-10-22] MEDS ORDERED: DICYCLOMINE HCL 10 MG CAPSULE PO (08:00)
[2017-10-22] MEDS ORDERED: BENZONATATE 100 MG CAPSULE. PO (08:00)
[2017-10-22] MEDS ORDERED: NAPROXEN 250 MG TABLET PO (08:00)
[2017-10-22] MEDS: PANTOPRAZOLE 40 MG TABLET.DR. PO (08:43)
[2017-10-22 08:55] LABS: LACTIC ACID 0.6 mmol/L (0.4-2.0)
[2017-10-22] MEDS: oxyCODONE/APAP 5/325 1 TAB TABLET PO (10:10)
[2017-10-22] MEDS: oxyCODONE/APAP 10/325 1 TAB TABLET PO ×3 (12:07→20:14)
[2017-10-22] MEDS: CETIRIZINE HCL 10 MG TABLET. PO (18:38)
[2017-10-22] MEDS: diphenhydrAMINE HCL 25 MG CAPSULE PO (20:48)
[2017-10-23] MEDS: IV NORMAL SALINE 1000ML BAG 1,000 ML IV (01:07)
[2017-10-23] MEDS: oxyCODONE/APAP 10/325 1 TAB TABLET PO ×2 (01:08→13:05)
[2017-10-23] MEDS: MORPHINE SULFATE 4 MG/ML DISP.SYRIN. IV ×3 (01:48→08:12)
[2017-10-23] MEDS: fentaNYL PF VIAL 100 MCG/2 ML VIAL IV ×4 (02:45→10:24)
[2017-10-23 05:24] LABS: ADD MAN DIFF? NO
[2017-10-23 05:33] LABS: BASO % 1 % (0-3); EOS # 0.2 x10^3/uL (0.0-0.7); EOS % 3 % (0-3); HEMATOCRIT 37.7 % (36.0-47.0); HEMOGLOBIN 12.7 g/dL (12.0-15.5); LYMPH # 3.7 x10^3/uL (1.0-4.8); LYMPH % 50 % (24-48); MEAN CORPUSCULAR HEMOGLOBIN 32 pg (25-35); MEAN CORPUSCULAR HGB CONC 34 g/dL (31-37); MEAN CORPUSCULAR VOLUME 94 fL (79-100); MONO # 0.6 x10^3/uL (0.0-1.1); MONO % 8 % (0-9); NEUT # 2.9 x10^3uL (1.8-7.7); NEUT % 39 % (31-73); PLATELET COUNT 204 x10^3/uL (140-400); RED BLOOD COUNT 4.03 x10^6/uL (3.50-5.40); RED CELL DISTRIBUTION WIDTH 13.3 % (11.5-14.5); WHITE BLOOD COUNT 7.4 x10^3/uL (4.0-11.0)
[2017-10-23 05:48] LABS: ANION GAP 5 (6-14); BLOOD UREA NITROGEN 8 mg/dL (7-20); CALCIUM 8.4 mg/dL (8.5-10.1); CARBON DIOXIDE 26 mmol/L (21-32); CHLORIDE 109 mmol/L (98-107); CREATININE 0.6 mg/dL (0.6-1.0); GFR 147.4; GLUCOSE 83 mg/dL (70-99); POTASSIUM 4.5 mmol/L (3.5-5.1); SODIUM 140 mmol/L (136-145)
[2017-10-23] MEDS: KETOROLAC 30 MG/ML INJ. IV (06:27)
[2017-10-23] MEDS: PANTOPRAZOLE 40 MG TABLET.DR. PO (07:30)
[2017-10-23] MEDS ORDERED: fentaNYL PF VIAL 100 MCG/2 ML VIAL IV ×2 (07:45→08:15)
[2017-10-23] MEDS ORDERED: MORPHINE SULFATE 4 MG/ML DISP.SYRIN. IV (08:15)
[2017-10-23] MEDS ORDERED: ONDANSETRON PF 4 MG/2 ML VIAL. IV (08:15)
[2017-10-23] MEDS ORDERED: LIDOCAINE 1% PF 2 ML VIAL. ID (08:15)
[2017-10-23] MEDS: CETIRIZINE HCL 10 MG TABLET. PO (09:00)
[2017-10-23] MEDS ORDERED: fentaNYL PF VIAL 100 MCG/2 ML VIAL (09:13)
[2017-10-23] MEDS ORDERED: MIDAZOLAM HCL/PF 2 MG/2 ML VIAL. (09:13)
[2017-10-23] MEDS: IV RINGERS,LACTATED 1000ML 1,000 ML IV (09:19)
[2017-10-23] MEDS: CIPROFLOXACIN 400MG PREMIX 200 ML IV (09:25)
[2017-10-23] MEDS: IOHEXOL 300 MG/ML 100ML VIAL. (09:30)
[2017-10-23] MEDS ORDERED: PROPOFOL 20 ML IV (10:00)
[2017-10-23] MEDS ORDERED: DEXAMETHASONE SOD PHOS 20 MG/5 ML VIAL. (10:00)
[2017-10-23] MEDS ORDERED: ONDANSETRON PF 4 MG/2 ML VIAL. (10:00)
[2017-10-23] MEDS ORDERED: SEVOFLURANE 16 TO 30 MINUTES. IH (10:00)
[2017-10-23] MEDS: PROCHLORPERAZINE 10 MG/2 ML VIAL. IV ×2 (10:12→10:24)
== END 2017-10-23 13:40 | disposition home or self-care (01) | DRG 694 ==
LOC: ER 23:49 → 4 NORTH 10-22 02:10
PROC: BT1D1ZZ Fluoroscopy of Right Kidney, Ureter and Bladder using Low Osmolar Contrast (ICD-10-PCS; principal; 2017-10-23 09:18)
DX: N13.2 Hydronephrosis with renal and ureteral calculous obstruction (principal); F17.210 Nicotine dependence, cigarettes, uncomplicated; J45.909 Unspecified asthma, uncomplicated; G89.29 Other chronic pain; I10 Essential (primary) hypertension; K58.9 Irritable bowel syndrome, unspecified; Z79.899 Other long term (current) drug therapy; Z91.040 Latex allergy status
CPT/HCPCS: 36415; 74018; 76001; 76775; 80048; 80053; 81001; 81025; 83605; 85025; 87086; C1769; J0744; J0780; J1100; J1885; J2250; J2270; J2405; J2704; J3010; J7030; J7120; Q0163; Q9967

== ENCOUNTER 2017-10-24 10:14 | Emergency (ER) | payer OTHER ==
[2017-10-24 11:04] LABS: ADD MAN DIFF? NO
[2017-10-24] MEDS: IV NORMAL SALINE 1000ML BAG 1,000 ML IV (11:04)
[2017-10-24] MEDS: ONDANSETRON PF 4 MG/2 ML VIAL. IV (11:04)
[2017-10-24 11:11] LABS: BASO # 0.1 x10^3/uL (0.0-0.2); BASO % 1 % (0-3); EOS # 0.1 x10^3/uL (0.0-0.7); EOS % 0 % (0-3); HEMATOCRIT 40.9 % (36.0-47.0); HEMOGLOBIN 13.7 g/dL (12.0-15.5); LYMPH # 3.2 x10^3/uL (1.0-4.8); LYMPH % 22 % (24-48); MEAN CORPUSCULAR HEMOGLOBIN 31 pg (25-35); MEAN CORPUSCULAR HGB CONC 34 g/dL (31-37); MEAN CORPUSCULAR VOLUME 94 fL (79-100); MONO # 0.9 x10^3/uL (0.0-1.1); MONO % 6 % (0-9); NEUT % 70 % (31-73); PLATELET COUNT 247 x10^3/uL (140-400); RED BLOOD COUNT 4.36 x10^6/uL (3.50-5.40); RED CELL DISTRIBUTION WIDTH 13.4 % (11.5-14.5); WHITE BLOOD COUNT 14.3 x10^3/uL (4.0-11.0)
[2017-10-24] MEDS: MORPHINE SULFATE 4 MG/ML DISP.SYRIN. IV/SQ ×2 (11:21→12:14)
[2017-10-24 11:40] LABS: ANION GAP 11 (6-14); BLOOD UREA NITROGEN 9 mg/dL (7-20); CALCIUM 9.5 mg/dL (8.5-10.1); CARBON DIOXIDE 25 mmol/L (21-32); CHLORIDE 102 mmol/L (98-107); CREATININE 0.7 mg/dL (0.6-1.0); GFR 123.4; GLUCOSE 99 mg/dL (70-99); POTASSIUM 3.6 mmol/L (3.5-5.1); SODIUM 138 mmol/L (136-145)
[2017-10-24 11:42] LABS: ALBUMIN 4.1 g/dL (3.4-5.0); ALK PHOS 56 U/L (46-116); ALT (SGPT) 49 U/L (14-59); AST (SGOT) 29 U/L (15-37); DIRECT BILIRUBIN < 0.1 mg/dL (0.0-0.2); TOTAL BILIRUBIN 0.5 mg/dL (0.2-1.0); TOTAL PROTEIN 7.8 g/dL (6.4-8.2)
[2017-10-24] MEDS: KETOROLAC 30 MG/ML INJ. IV (11:48)
[2017-10-24 12:17] LABS: URINE HCG POC HCG NEGATIVE (Negative)
[2017-10-24 12:19] LABS: BILIRUBIN,URINE NEGATIVE (NEG); CLARITY,URINE CLEAR; COLOR,URINE YELLOW; GLUCOSE,URINE NEGATIVE (NEG); NITRITE,URINE NEGATIVE (NEG); PH,URINE 7.5; PROTEIN,URINE NEGATIVE (NEG-TRACE); UROBILINOGEN,URINE 0.2 mg/dL (0.2 mg/dL)
[2017-10-24 12:29] LABS: BACTERIA,URINE 0 /HPF (0-FEW); RBC,URINE >40 /HPF (0-2); WBC,URINE OCC /HPF (0-4)
== END 2017-10-24 13:30 | disposition home or self-care (01) ==
LOC: ER 10:14
DX: R10.11 Right upper quadrant pain (principal); R11.2 Nausea with vomiting, unspecified; J45.909 Unspecified asthma, uncomplicated; K58.9 Irritable bowel syndrome, unspecified; G89.29 Other chronic pain; Z87.442 Personal history of urinary calculi; Z91.040 Latex allergy status
CPT/HCPCS: 36415; 76770; 80048; 80076; 81001; 81025; 85025; 87086; 96361; 96374; 96375; 96376; 99285-25; J1885; J2270; J2405; J7030

== ENCOUNTER 2017-10-28 00:29 | Emergency (ER) | payer OTHER ==
[2017-10-28 01:52] LABS: ADD MAN DIFF? NO
[2017-10-28] MEDS: fentaNYL PF VIAL 100 MCG/2 ML VIAL IV (01:53)
[2017-10-28] MEDS: ONDANSETRON PF 4 MG/2 ML VIAL. IV (01:53)
[2017-10-28] MEDS: IV NORMAL SALINE 1000ML BAG 1,000 ML IV (01:54)
[2017-10-28 01:55] LABS: BASO # 0.1 x10^3/uL (0.0-0.2); BASO % 1 % (0-3); EOS # 0.2 x10^3/uL (0.0-0.7); EOS % 2 % (0-3); HEMATOCRIT 43.7 % (36.0-47.0); HEMOGLOBIN 14.9 g/dL (12.0-15.5); LYMPH # 2.5 x10^3/uL (1.0-4.8); LYMPH % 25 % (24-48); MEAN CORPUSCULAR HEMOGLOBIN 32 pg (25-35); MEAN CORPUSCULAR HGB CONC 34 g/dL (31-37); MEAN CORPUSCULAR VOLUME 94 fL (79-100); MONO # 0.5 x10^3/uL (0.0-1.1); MONO % 5 % (0-9); NEUT # 6.8 x10^3uL (1.8-7.7); NEUT % 67 % (31-73); PLATELET COUNT 304 x10^3/uL (140-400); RED BLOOD COUNT 4.65 x10^6/uL (3.50-5.40); RED CELL DISTRIBUTION WIDTH 13.9 % (11.5-14.5); WHITE BLOOD COUNT 10.1 x10^3/uL (4.0-11.0)
[2017-10-28 02:02] LABS: BILIRUBIN,URINE NEGATIVE (NEG); CLARITY,URINE CLEAR; COLOR,URINE YELLOW; GLUCOSE,URINE NEGATIVE (NEG); NITRITE,URINE NEGATIVE (NEG); PH,URINE 7.5; PROTEIN,URINE NEGATIVE (NEG-TRACE); UROBILINOGEN,URINE 0.2 mg/dL (0.2 mg/dL)
[2017-10-28 02:05] LABS: ANION GAP 11 (6-14); BLOOD UREA NITROGEN 7 mg/dL (7-20); BUN/CREATININE RATIO 10 (6-20); CALCIUM 9.8 mg/dL (8.5-10.1); CARBON DIOXIDE 26 mmol/L (21-32); CHLORIDE 103 mmol/L (98-107); CREATININE 0.7 mg/dL (0.6-1.0); GFR 123.4; GLUCOSE 100 mg/dL (70-99); POTASSIUM 3.6 mmol/L (3.5-5.1); SODIUM 140 mmol/L (136-145)
[2017-10-28 02:06] LABS: BACTERIA,URINE 0 /HPF (0-FEW); RBC,URINE 0 /HPF (0-2); SQUAMOUS EPITHELIAL CELL,UR FEW /LPF; WBC,URINE OCC /HPF (0-4)
[2017-10-28 02:09] LABS: ALBUMIN 4.4 g/dL (3.4-5.0); ALBUMIN/GLOBULIN RATIO 1.1 (1.0-1.7); ALK PHOS 57 U/L (46-116); ALT (SGPT) 37 U/L (14-59); AST (SGOT) 16 U/L (15-37); TOTAL BILIRUBIN 0.4 mg/dL (0.2-1.0); TOTAL PROTEIN 8.3 g/dL (6.4-8.2)
[2017-10-28] MEDS: KETOROLAC 30 MG/ML INJ. IV (02:22)
== END 2017-10-28 02:47 | disposition home or self-care (01) ==
LOC: ER 00:29
DX: R10.9 Unspecified abdominal pain (principal); G89.29 Other chronic pain; K58.9 Irritable bowel syndrome, unspecified; J45.909 Unspecified asthma, uncomplicated; Z87.442 Personal history of urinary calculi; F11.10 Opioid abuse, uncomplicated; Z91.040 Latex allergy status
CPT/HCPCS: 36415; 76770; 80053; 81001; 84702; 85025; 96361; 96374; 96375; 99285-25; J1885; J2405; J3010; J7030

== ENCOUNTER 2017-12-19 14:45 | Emergency (ER) | payer OTHER ==
[2017-12-19 15:16] LABS: URINE HCG POC HCG NEGATIVE (Negative)
[2017-12-19] MEDS: ALPRAZolam 0.5 MG TABLET PO (15:47)
[2017-12-19] MEDS: oxyCODONE/APAP 10/325 1 TAB TABLET PO (15:48)
== END 2017-12-19 15:51 | disposition home or self-care (01) ==
LOC: ER 14:45
DX: G89.29 Other chronic pain (principal); R10.2 Pelvic and perineal pain; F11.23 Opioid dependence with withdrawal; J45.909 Unspecified asthma, uncomplicated; K58.9 Irritable bowel syndrome, unspecified; Z87.442 Personal history of urinary calculi; Z91.040 Latex allergy status
CPT/HCPCS: 81025; 96365; 96366; 96375; 99283; 99285-25

== ENCOUNTER 2017-12-21 11:14 | Emergency (ER) | payer OTHER | END 2017-12-21 11:46 | disposition home or self-care (01) | LOC: ER 11:14 | DX: G89.29 Other chronic pain (principal); R10.2 Pelvic and perineal pain; F11.10 Opioid abuse, uncomplicated; K58.9 Irritable bowel syndrome, unspecified; J45.909 Unspecified asthma, uncomplicated; Z87.442 Personal history of urinary calculi; Z91.040 Latex allergy status | CPT/HCPCS: 99281 ==

== ENCOUNTER 2018-01-01 19:19 | Emergency (ER) | payer OTHER ==
[2018-01-01] MEDS ORDERED: MORPHINE SULFATE 4 MG/ML DISP.SYRIN. IV/SQ (19:45)
[2018-01-01 19:48] LABS: ADD MAN DIFF? NO
[2018-01-01 19:49] LABS: URINE HCG POC HCG NEGATIVE (Negative)
[2018-01-01 19:51] LABS: BILIRUBIN,URINE NEGATIVE (NEG); CLARITY,URINE CLEAR; COLOR,URINE YELLOW; GLUCOSE,URINE NEGATIVE (NEG); NITRITE,URINE NEGATIVE (NEG); PH,URINE 7.5; PROTEIN,URINE NEGATIVE (NEG-TRACE)
[2018-01-01 19:52] LABS: BASO # 0.1 x10^3/uL (0.0-0.2); BASO % 1 % (0-3); EOS # 0.1 x10^3/uL (0.0-0.7); EOS % 1 % (0-3); HEMATOCRIT 44.4 % (36.0-47.0); HEMOGLOBIN 15.6 g/dL (12.0-15.5); LYMPH # 2.3 x10^3/uL (1.0-4.8); LYMPH % 24 % (24-48); MEAN CORPUSCULAR HEMOGLOBIN 32 pg (25-35); MEAN CORPUSCULAR HGB CONC 35 g/dL (31-37); MEAN CORPUSCULAR VOLUME 93 fL (79-100); MONO # 0.8 x10^3/uL (0.0-1.1); MONO % 8 % (0-9); NEUT # 6.6 x10^3uL (1.8-7.7); NEUT % 67 % (31-73); PLATELET COUNT 328 x10^3/uL (140-400); RED CELL DISTRIBUTION WIDTH 13.7 % (11.5-14.5); WHITE BLOOD COUNT 9.9 x10^3/uL (4.0-11.0)
[2018-01-01] MEDS: ONDANSETRON PF 4 MG/2 ML VIAL. IV (19:54)
[2018-01-01] MEDS: IV NORMAL SALINE 1000ML BAG 1,000 ML IV (19:54)
[2018-01-01] MEDS: KETOROLAC 30 MG/ML INJ. IV (19:55)
[2018-01-01] MEDS: ACETAMINOPHEN 500 MG TABLET PO (19:55)
[2018-01-01 19:56] LABS: BACTERIA,URINE FEW /HPF (0-FEW); RBC,URINE 0 /HPF (0-2); SQUAMOUS EPITHELIAL CELL,UR MOD /LPF
[2018-01-01 20:01] LABS: ANION GAP 15 (6-14); BLOOD UREA NITROGEN 7 mg/dL (7-20); BUN/CREATININE RATIO 9 (6-20); CALCIUM 9.7 mg/dL (8.5-10.1); CARBON DIOXIDE 25 mmol/L (21-32); CHLORIDE 99 mmol/L (98-107); CREATININE 0.8 mg/dL (0.6-1.0); GFR 105.8; GLUCOSE 88 mg/dL (70-99); POTASSIUM 3.2 mmol/L (3.5-5.1); SODIUM 139 mmol/L (136-145)
[2018-01-01 20:07] LABS: ALBUMIN 4.6 g/dL (3.4-5.0); ALBUMIN/GLOBULIN RATIO 1.1 (1.0-1.7); ALK PHOS 69 U/L (46-116); ALT (SGPT) 18 U/L (14-59); AST (SGOT) 19 U/L (15-37); LIPASE 155 U/L (73-393); TOTAL BILIRUBIN 0.7 mg/dL (0.2-1.0); TOTAL PROTEIN 8.7 g/dL (6.4-8.2)
[2018-01-01 20:10] LABS: LACTIC ACID 1.6 mmol/L (0.4-2.0)
[2018-01-01] MEDS ORDERED: cloNIDine HCL 0.1 MG TABLET PO (21:00)
[2018-01-01] MEDS: oxyCODONE/APAP 10/325 1 TAB TABLET PO (21:11)
[2018-01-01] MEDS: POTASSIUM CHLORIDE 20 MEQ TABLET.ER. PO (21:12)
[2018-01-03 14:31] LABS: CHLAMYDIA PROBE Negative (Negative); GC PROBE Negative (Negative)
== END 2018-01-01 21:15 | disposition home or self-care (01) ==
LOC: ER 19:19
DX: N76.0 Acute vaginitis (principal); B96.89 Other specified bacterial agents as the cause of diseases classified elsewhere; K52.9 Noninfective gastroenteritis and colitis, unspecified; E87.6 Hypokalemia; G89.29 Other chronic pain; F11.20 Opioid dependence, uncomplicated; J45.909 Unspecified asthma, uncomplicated; K58.9 Irritable bowel syndrome, unspecified; Z87.442 Personal history of urinary calculi; Z91.040 Latex allergy status
CPT/HCPCS: 36415; 71046; 76830; 80053; 81001; 81025; 83605; 83690; 85025; 87086; 87491; 87591; 96361; 96374; 96375; 99285-25; J1885; J2405; J7030; Q0111

== ENCOUNTER 2018-01-19 20:07 | Emergency (ER) | payer OTHER ==
[2018-01-19] MEDS: oxyCODONE ER 15 MG TAB.ER.12H PO (21:19)
== END 2018-01-19 21:31 | disposition home or self-care (01) ==
LOC: ER 21:31
DX: G89.29 Other chronic pain (principal); R10.2 Pelvic and perineal pain; J45.909 Unspecified asthma, uncomplicated; K58.9 Irritable bowel syndrome, unspecified; Z87.442 Personal history of urinary calculi; Z91.040 Latex allergy status
CPT/HCPCS: 99282

== ENCOUNTER 2018-02-14 12:23 | Emergency (ER) | payer OTHER ==
[2018-02-14 12:49] LABS: URINE HCG POC HCG NEGATIVE (Negative)
[2018-02-14 13:23] LABS: ADD MAN DIFF? NO
[2018-02-14 13:26] LABS: BASO % 1 % (0-3); EOS # 0.1 x10^3/uL (0.0-0.7); EOS % 2 % (0-3); HEMATOCRIT 44.2 % (36.0-47.0); HEMOGLOBIN 15.2 g/dL (12.0-15.5); LYMPH # 1.6 x10^3/uL (1.0-4.8); LYMPH % 17 % (24-48); MEAN CORPUSCULAR HEMOGLOBIN 32 pg (25-35); MEAN CORPUSCULAR HGB CONC 34 g/dL (31-37); MEAN CORPUSCULAR VOLUME 94 fL (79-100); MONO # 0.6 x10^3/uL (0.0-1.1); MONO % 7 % (0-9); NEUT # 6.8 x10^3uL (1.8-7.7); NEUT % 74 % (31-73); PLATELET COUNT 274 x10^3/uL (140-400); RED CELL DISTRIBUTION WIDTH 13.7 % (11.5-14.5); WHITE BLOOD COUNT 9.2 x10^3/uL (4.0-11.0)
[2018-02-14 13:28] LABS: BILIRUBIN,URINE NEGATIVE (NEG); CLARITY,URINE CLEAR; COLOR,URINE AMBER; GLUCOSE,URINE NEGATIVE (NEG); NITRITE,URINE NEGATIVE (NEG); PROTEIN,URINE >=300 mg/dL (NEG-TRACE)
[2018-02-14 13:38] LABS: ANION GAP 14 (6-14); BLOOD UREA NITROGEN 6 mg/dL (7-20); CALCIUM 9.6 mg/dL (8.5-10.1); CARBON DIOXIDE 24 mmol/L (21-32); CHLORIDE 103 mmol/L (98-107); CREATININE 0.9 mg/dL (0.6-1.0); GFR 92.3; GLUCOSE 90 mg/dL (70-99); POTASSIUM 3.8 mmol/L (3.5-5.1); SODIUM 141 mmol/L (136-145)
[2018-02-14 13:39] LABS: BACTERIA,URINE FEW /HPF (0-FEW); LIPASE 127 U/L (73-393); RBC,URINE OCC /HPF (0-2); SQUAMOUS EPITHELIAL CELL,UR FEW /LPF
[2018-02-14] MEDS: MORPHINE SULFATE 4 MG/ML DISP.SYRIN. IV ×2 (14:02→15:35)
[2018-02-14] MEDS: ONDANSETRON PF 4 MG/2 ML VIAL. IV (14:02)
[2018-02-14] MEDS: IV NORMAL SALINE 1000ML BAG 1,000 ML IV (14:03)
[2018-02-14 14:10] LABS: ALBUMIN 4.2 g/dL (3.4-5.0); ALK PHOS 64 U/L (46-116); ALT (SGPT) 22 U/L (14-59); AST (SGOT) 21 U/L (15-37); DIRECT BILIRUBIN 0.1 mg/dL (0.0-0.2); TOTAL BILIRUBIN 0.5 mg/dL (0.2-1.0); TOTAL PROTEIN 7.8 g/dL (6.4-8.2)
[2018-02-14] MEDS: ALBUTEROL SULFATE 2.5 MG/3 ML NEBU. NEB (14:15)
[2018-02-14] MEDS: PROMETHAZINE 12.5 MG TABLET. PO (15:35)
[2018-02-14] MEDS: AZITHROMYCIN 250 MG TABLET. PO (16:00)
[2018-02-14] MEDS: cefTRIAXone IM 250 MG VIAL IM (16:00)
[2018-02-14] MEDS: predniSONE 10 MG TABLET PO (16:35)
[2018-02-16 14:37] LABS: CHLAMYDIA PROBE Positive (Negative); GC PROBE Negative (Negative)
== END 2018-02-14 17:04 | disposition home or self-care (01) ==
LOC: ER 12:23
DX: R10.2 Pelvic and perineal pain (principal); J20.9 Acute bronchitis, unspecified; R19.7 Diarrhea, unspecified; R11.2 Nausea with vomiting, unspecified; Z20.2 Contact with and (suspected) exposure to infections with a predominantly sexual mode of transmission; J45.909 Unspecified asthma, uncomplicated; G89.29 Other chronic pain; Z91.040 Latex allergy status; W10.8XXA Fall (on) (from) other stairs and steps, initial encounter; Y93.89 Activity, other specified; Y99.8 Other external cause status; Y92.89 Other specified places as the place of occurrence of the external cause
CPT/HCPCS: 36415; 71046; 72100; 73521; 76830; 80048; 80076; 81001; 81025; 83690; 85025; 87086; 87491; 87591; 94640; 96361; 96374; 96375; 96376; 99285-25; J2270; J2405; J7030; J7512; J7613; Q0111; Q0144; Q0169

== ENCOUNTER 2018-02-28 08:19 | Emergency (ER) | payer OTHER ==
[~2018-02-28] VITALS: Ht 152.4 cm; Wt 49.9 kg
[~2018-02-28 08:19] MED LIST changes: +AZIT1PAC PO; +BENZ100C PO; +GUAI-108 PO; +HYDR-2758 PO; +METH4TAB2 PO; +NAPR-514 PO; +NAPR-683 PO; -NAPR500T3 PO; +PANT40TA5 PO; +PRED20TA PO; +PROAIR HFA8.5 GM INH; +PROM12.56 PO
--- NOTE | 2018-02-28 08:52 | PHYS DOC ---
Past Medical History Past Medical History: Asthma, Endometriosis, IBS, STD Additional Past Medical Histor: ulcer, endometriosis, Chronic R leg pain, Chronic Pelvic Pain, HPV Past Surgical History: No Surgical History, Tonsillectomy, Other Additional Past Surgical Histo: l LEG FX Smoking: Cigarettes Alcohol Use: Occasionally Drug Use: None Adult General Chief Complaint Chief Complaint: ABDOMINAL PAIN HPI HPI 27-year-old female presents to ER with complaints of right upper abdominal pain which started yesterday. Patient reports she woke this morning and had increased pain in the right upper quadrant with intermittent nausea denied any vomiting or diarrhea episodes. Patient reports yesterday she had temperature of 101.9-9 fever this morning. Patient reports she had regular bowel movement yesterday denying any visible blood. Patient reports she has history of IBS. Patient reports she was in the emergency department 02/14/18 and had multiple tests done and was diagnosed with chlamydia and treated with doxycycline and azithromycin. Patient reports this pain is different than that she was evaluated for in January. Pt reports she woke around 4 am and was able to eat potato chips with no increase in pain or nausea. She reports her menstr. cycle is irreg. and that she has had intermittent bleeding since 01/23/18 denying increased bleeding since Chlamydia tx in January. Pt appears anxious during initial exam- no uncontrollable behavior denying any stress/SI. Review of Systems Review of Systems Constitutional: Reports yesterday fever 101.9- feels fatigued today Eyes: Denies change in visual acuity, redness, or eye pain [] HENT: Denies nasal congestion or sore throat [] Respiratory: Denies cough or shortness of breath [] Cardiovascular: Denies chest pain or palpitations GI: Ports right upper abdominal pain with intermittent nausea denying any vomiting, bloody stools or diarrhea [] : Denies urinary sxs- reports she has had pelvic pressure since January with no acute changes Back: Reports bilat. lower back discomfort Integument: Denies rash or skin lesions [] Neurologic: Denies headache, focal weakness or sensory changes [] All other systems were reviewed and found to be within normal limits, except as documented in this note. Current Medications Current Medications Current Medications Medications (Trade) Dose Ordered Sig/Luis Start Time Stop Time Status Last Admin Dose Admin Dicyclomine HCl (Bentyl) 10 mg 1X ONCE 8/14/18 09:00 02/28/18 09:01 DC 02/28/18 09:11 10 MG Ondansetron HCl (Zofran) 4 mg 1X ONCE 02/28/18 09:00 02/28/18 09:01 DC 02/28/18 09:11 4 MG Sodium Chloride 1,000 ml @ 1,000 mls/hr 1X ONCE 02/28/18 09:00 02/28/18 09:59 DC 02/28/18 09:08 1,000 MLS/HR Allergies Allergies Allergies Coded Allergies Type Severity Reaction Last Updated Verified latex Allergy Severe Anaphylaxis 05/11/17 Yes Physical Exam Physical Exam Constitutional: Well developed, well nourished, no acute distress, non-toxic appearance. [] HENT: Normocephalic, atraumatic, bilateral ears normal, mucous membranes pink/ moist, nose normal. [] Eyes: PERRLA, conjunctiva normal, no discharge. [] Neck: Normal range of motion, no tenderness, supple, no stridor. [] Cardiovascular:Heart rate regular rhythm, no murmur [] Lungs & Thorax: Bilateral breath sounds clear to auscultation. Resp. equal/ nonlabored Abdomen: Tender to palp. RUQ into mid epig. area with no distention, soft, no tenderness, no masses, no pulsatile masses. [] Skin: Warm, dry, no erythema, no rash. [] Back: Tender in lower back with no focal area- full ROM with no facial grimacing with repositioning, no CVA tenderness Extremities: No tenderness, no cyanosis, no clubbing, ROM intact, no edema. [] Neurologic: Alert and oriented X 3, normal motor function, normal sensory function, no focal deficits noted. [] Psychologic: Affect normal, judgement normal, mood normal. [] Current Patient Data Vital Signs Vital Signs Date Time Temp Pulse Resp B/P (MAP) Pulse Ox O2 Delivery O2 Flow Rate FiO2 02/28/18 10:00 58 92/54 (67) 98 02/28/18 08:30 22 02/28/18 08:22 98.9 Room Air 98.9 Lab Values Laboratory Tests Test 02/28/18 08:30 02/28/18 08:38 02/28/18 08:50 Urine Collection Type Void Urine Color Yellow Urine Clarity Clear Urine pH 7.0 Urine Specific [place] >=1.030 Urine Protein Negative mg/dL (NEG-TRACE) Urine Glucose (UA) Negative mg/dL (NEG) Urine Ketones (Stick) Trace mg/dL (NEG) Urine Blood Small (NEG) Urine Nitrite Negative (NEG) Urine Bilirubin Negative (NEG) Urine Urobilinogen Dipstick 1.0 mg/dL (0.2 mg/dL) Urine Leukocyte Esterase Trace (NEG) Urine RBC 1-2 /HPF (0-2) Urine WBC 5-10 /HPF (0-4) Urine Squamous Epithelial Cells Few /LPF Urine Amorphous Sediment Present /HPF Urine Bacteria Few /HPF (0-FEW) Urine Mucus Marked /LPF POC Urine HCG, Qualitative Hcg negative (Negative) White Blood Count 8.5 x10^3/uL (4.0-11.0) Red Blood Count 4.30 x10^6/uL (3.50-5.40) Hemoglobin 13.8 g/dL (12.0-15.5) Hematocrit 40.1 % (36.0-47.0) Mean Corpuscular Volume 93 fL (79-100) Mean Corpuscular Hemoglobin 32 pg (25-35) Mean Corpuscular Hemoglobin Concent 34 g/dL (31-37) Red Cell Distribution Width 13.6 % (11.5-14.5) Platelet Count 263 x10^3/uL (140-400) Neutrophils (%) (Auto) 56 % (31-73) Lymphocytes (%) (Auto) 34 % (24-48) Monocytes (%) (Auto) 7 % (0-9) Eosinophils (%) (Auto) 3 % (0-3) Basophils (%) (Auto) 1 % (0-3) Neutrophils # (Auto) 4.8 x10^3uL (1.8-7.7) Lymphocytes # (Auto) 2.9 x10^3/uL (1.0-4.8) Monocytes # (Auto) 0.6 x10^3/uL (0.0-1.1) Eosinophils # (Auto) 0.2 x10^3/uL (0.0-0.7) Basophils # (Auto) 0.0 x10^3/uL (0.0-0.2) Sodium Level 139 mmol/L (136-145) Potassium Level 3.7 mmol/L (3.5-5.1) Chloride Level 102 mmol/L (98-107) Carbon Dioxide Level 26 mmol/L (21-32) Anion Gap 11 (6-14) Blood Urea Nitrogen 11 mg/dL (7-20) Creatinine 0.8 mg/dL (0.6-1.0) Estimated GFR (Cockcroft-Gault) 105.8 BUN/Creatinine Ratio 14 (6-20) Glucose Level 95 mg/dL (70-99) Calcium Level 8.6 mg/dL (8.5-10.1) Magnesium Level 1.7 mg/dL (1.8-2.4) L Total Bilirubin 0.2 mg/dL (0.2-1.0) Aspartate Amino Transferase (AST) 19 U/L (15-37) Alanine Aminotransferase (ALT) 22 U/L (14-59) Alkaline Phosphatase 58 U/L (46-116) Total Protein 7.0 g/dL (6.4-8.2) Albumin 3.8 g/dL (3.4-5.0) Albumin/Globulin Ratio 1.2 (1.0-1.7) Lipase 89 U/L (73-393) Laboratory Tests 02/28/18 08:50 Laboratory Tests 02/28/18 08:50 Microbiology 02/28/18 Urine Culture - Final, Complete 02/28/18 Urine Culture Result 1 (NEHA) - Final, Complete EKG EKG [] Radiology/Procedures Radiology/Procedures [] Course & Med Decision Making Course & Med Decision Making Pertinent Labs and Imaging studies reviewed. (See chart for details) 1005: Discussed test results with patient- CBC and CMP unremarkable and UA showing trace ketones/leuks neg. nitrates with bacteria noted on micro and 5-10 WBCs and neg. UCG. Discussed with NL results plans were for home discharge with Rx for Bentyl and Zofran ODT and f/u with PCP and/or GI doctor for further eval if sxs persist. Pt multiple times asked for stronger pain medications and pain medication Rx to go home with- discussed use of Bentyl and tylenol as needed for pain. Pt was offered dose of Toradol while in ER but refused as she reports that medication never helps her pain. Pt has her toddler dgtr with her at bedside with no family/friends present- also discussed avoiding narcotic use or medications that may be sedative when she is caring for her young child. Pt on re-eval is in no visible distress- nontoxic in appearance. Discharge instructions were discussed and education provided on signs and symptoms to return to ER for. Will provide patient with GI referral information on discharge paperwork. Pt has been afebrile while in ER and has had no vomiting episodes. Dragon Disclaimer Dragon Disclaimer This electronic medical record was generated, in whole or in part, using a voice recognition dictation system. Departure Departure Impression: Primary Impression: Abdominal pain Disposition: 01 HOME, SELF-CARE Condition: STABLE Referrals: PATRICIA HUDSON (PCP) NATALIO GOODWIN MD Gastrointestinal doctor Patient Instructions: Abdominal Pain, Nausea and Vomiting, [id number] Additional Instructions: [place] diet avoiding alcohol, acidic, or spicy foods. Scripts Dicyclomine Hcl (DICYCLOMINE HCL) 10 Mg Capsule 10 MG PO QID, #14 CAP 0 Refills Prov: ELI SAMUELS APRN 02/28/18 Ondansetron (ZOFRAN ODT) 4 Mg Tab.rapdis 1 TAB SL Q8HRS, #10 TAB 0 Refills Prov: ELI SAMUELS APRN 02/28/18 ELI SAMUELS APRN Feb 28, 2018 08:52
[2018-02-28 09:00] LABS: BASO % 1 % (0-3); EOS # 0.2 x10^3/uL (0.0-0.7); EOS % 3 % (0-3); HEMATOCRIT 40.1 % (36.0-47.0); HEMOGLOBIN 13.8 g/dL (12.0-15.5); LYMPH # 2.9 x10^3/uL (1.0-4.8); LYMPH % 34 % (24-48); MEAN CORPUSCULAR HEMOGLOBIN 32 pg (25-35); MEAN CORPUSCULAR HGB CONC 34 g/dL (31-37); MEAN CORPUSCULAR VOLUME 93 fL (79-100); MONO # 0.6 x10^3/uL (0.0-1.1); MONO % 7 % (0-9); NEUT # 4.8 x10^3uL (1.8-7.7); NEUT % 56 % (31-73); PLATELET COUNT 263 x10^3/uL (140-400); RED CELL DISTRIBUTION WIDTH 13.6 % (11.5-14.5); WHITE BLOOD COUNT 8.5 x10^3/uL (4.0-11.0)
[2018-02-28] MEDS ORDERED: DICYCLOMINE 20 MG/2 ML AMPUL. IM ONE (09:00)
[2018-02-28] MEDS ORDERED: IV NORMAL SALINE 1000ML BAG 1,000 ML IV ONE (09:00)
[2018-02-28] MEDS ORDERED: ONDANSETRON PF 4 MG/2 ML VIAL. IV ONE (09:00)
[2018-02-28 09:15] LABS: CALCIUM 8.6 mg/dL (8.5-10.1); CREATININE 0.8 mg/dL (0.6-1.0); GFR 105.8; POTASSIUM 3.7 mmol/L (3.5-5.1)
[2018-02-28 09:21] LABS: ALBUMIN 3.8 g/dL (3.4-5.0); ALBUMIN/GLOBULIN RATIO 1.2 (1.0-1.7); MAGNESIUM 1.7 mg/dL (1.8-2.4); TOTAL BILIRUBIN 0.2 mg/dL (0.2-1.0)
[2018-02-28 09:59] LABS: BILIRUBIN,URINE NEGATIVE (NEG); CLARITY,URINE CLEAR; COLOR,URINE YELLOW; NITRITE,URINE NEGATIVE (NEG); PROTEIN,URINE NEGATIVE (NEG-TRACE)
[2018-02-28 10:00] VITALS: BP 92/54
[2018-02-28 10:07] LABS: BACTERIA,URINE FEW /HPF (0-FEW); SQUAMOUS EPITHELIAL CELL,UR FEW /LPF
[2018-02-28 10:08] LABS: AMORPHOUS SEDIMENT,UR PRESENT /HPF
[2018-02-28] MEDS ORDERED: DICY10CA3 PO (10:25)
[2018-02-28] MEDS ORDERED: ONDA4TAB10 SL (10:25)
== END 2018-02-28 11:00 | disposition home or self-care (01) ==
LOC: ER 08:19
DX: R10.11 Right upper quadrant pain (principal); R11.0 Nausea; K58.9 Irritable bowel syndrome, unspecified; J45.909 Unspecified asthma, uncomplicated; G89.29 Other chronic pain; F17.210 Nicotine dependence, cigarettes, uncomplicated; Z91.040 Latex allergy status
CPT/HCPCS: 36415; 80053; 81001; 81025; 83690; 83735; 85025; 87086; 96372; 96374; 99284; J0500; J2405; J7030

== ENCOUNTER 2018-03-04 09:59 | Emergency (ER) | payer OTHER ==
[~2018-03-04] VITALS: Ht 167.6 cm; Wt 49.9 kg
[~2018-03-04 09:59] MED LIST changes: +DICY10CA3 PO
[2018-03-04 10:08] VITALS: BP 116/74
--- NOTE | 2018-03-04 10:58 | RAD ---
Indication: Left elbow pain status post fall. control implant in the left arm. TECHNIQUE: 3 views of the left elbow COMPARISON: None FINDINGS: No acute fracture or dislocation. No joint effusion. No arthritic changes. No soft tissue abnormality. IMPRESSION: No acute findings. Electronically signed by: Dustin Friedman DO (03/04/2018 10:54 AM) [facility]
--- NOTE | 2018-03-04 11:00 | PHYS DOC ---
Past Medical History Past Medical History: Asthma, Endometriosis, IBS, STD Additional Past Medical Histor: ulcer, endometriosis, Chronic R leg pain, Chronic Pelvic Pain, HPV Past Surgical History: No Surgical History, Tonsillectomy, Other Additional Past Surgical Histo: L LEG FX, ENDOSCOPY,COLONOSCOPY Alcohol Use: Occasionally Drug Use: None Adult General Chief Complaint Chief Complaint: UPPER EXTREMITY INJURY HPI HPI Patient is a 27 year old female who presents with left elbow injury. She states she was playing possible yesterday when she fell landing on the left elbow. She presents to the ER today complaining of pain and is unable to range her left elbow. Review of Systems Review of Systems Constitutional: Denies fever or chills Eyes: Denies change in visual acuity HENT: Denies nasal congestion Respiratory: Denies cough or shortness of breath Musculoskeletal: Denies back pain All other systems were reviewed and found to be within normal limits, except as documented in this note. Allergies Allergies Allergies Coded Allergies Type Severity Reaction Last Updated Verified latex Allergy Severe Anaphylaxis 05/11/17 Yes Physical Exam Physical Exam Constitutional: Well developed, well nourished, no acute distress, non-toxic appearance Neck: Normal range of motion Abdomen: Bowel sounds normal Skin: Warm, dry, no erythema Back: No tenderness Extremities: normal exam of left elbow. no trauma, bruising, redness, swelling. patient refuses to ROM during the exam. distal pulses are 2+ and otherwise normal exam of left EU. Neurologic: Alert and oriented X 3 Psychologic: Affect normal Current Patient Data Vital Signs Vital Signs Date Time Temp Pulse Resp B/P (MAP) Pulse Ox O2 Delivery O2 Flow Rate FiO2 03/04/18 10:08 98.6 86 16 116/74 (88) 98 Room Air 98.6 EKG EKG [] Radiology/Procedures Radiology/Procedures Normal xray of left elbow Course & Med Decision Making Course & Med Decision Making Pertinent Labs and Imaging studies reviewed. (See chart for details) Patient is evaluated in the emergency department for an elbow injury. There are no signs of trauma on her elbow. Normal examination. Her x-ray does not reveal any acute findings. I did review the patient's [facility]'s report. The patient is highlighted and red on the website as someone who "shops" physicians and pharmacies. This is based on the fact that she has received multiple controlled substances from multiple providers in the last 3 months. Today, she is discharged to home. She has no objective evidence for injury. No Rx's are provided. She is recommended to use OTC medications. Shemaron Disclaimer Kelsea Disclaimer This electronic medical record was generated, in whole or in part, using a voice recognition dictation system. Departure Departure Impression: Primary Impression: Contusion, elbow Disposition: HOME, SELF-CARE Condition: GOOD Patient Instructions: Contusion ELLIE RODRIGUEZ DO Mar 04, 2018 11:00
== END 2018-03-04 10:58 | disposition home or self-care (01) ==
LOC: ER 09:59
DX: S50.02XA Contusion of left elbow, initial encounter (principal); J45.909 Unspecified asthma, uncomplicated; Z90.89 Acquired absence of other organs; Z91.040 Latex allergy status; W19.XXXA Unspecified fall, initial encounter; Y93.89 Activity, other specified; Y92.89 Other specified places as the place of occurrence of the external cause; Y99.8 Other external cause status
CPT/HCPCS: 73080; 99284

== ENCOUNTER 2018-03-14 12:32 | Emergency (ER) | payer OTHER ==
[~2018-03-14] VITALS: Ht 152.4 cm; Wt 45.4 kg
[2018-03-14 13:20] VITALS: BP 139/83
[2018-03-14 13:34] LABS: BILIRUBIN,URINE NEGATIVE (NEG); CLARITY,URINE CLEAR; COLOR,URINE YELLOW; NITRITE,URINE NEGATIVE (NEG); PH,URINE 6.5; PROTEIN,URINE 30 mg/dL (NEG-TRACE); UROBILINOGEN,URINE 0.2 mg/dL (0.2 mg/dL)
[2018-03-14] MEDS: oxyCODONE/APAP 10/325 1 TAB TABLET PO ONE (13:39)
[2018-03-14] MEDS: ONDANSETRON ODT 4 MG TAB.RAPDIS. PO ONE (14:03)
[2018-03-14 14:07] LABS: BACTERIA,URINE FEW /HPF (0-FEW); RBC,URINE OCC /HPF (0-2); SQUAMOUS EPITHELIAL CELL,UR FEW /LPF
[2018-03-14] MEDS ORDERED: OXYC-323 PO (14:13)
--- NOTE | 2018-03-14 14:14 | PHYS DOC ---
Past Medical History Past Medical History: Asthma, Endometriosis, IBS, STD Additional Past Medical Histor: ulcer, endometriosis, Chronic R leg pain, Chronic Pelvic Pain, HPV Past Surgical History: Tonsillectomy, Other Additional Past Surgical Histo: L LEG FX, ENDOSCOPY,COLONOSCOPY Alcohol Use: Occasionally Drug Use: None Adult General Chief Complaint Chief Complaint: MEDICATION REFILL [facility] Patient is a 27 year old female who presents with a need for medication refill. The patient states that she was diagnosed with cervicitis and treated with IV antibiotics for [address] [facility]. She was sent home on doxycycline, Flagyl and Percocet. She states that she is out of the Percocet and is in excruciating pain. 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 She states that she does not feel like she is worsening but that she needs the pain medication until she can be seen by her doctor. Review of Systems Review of Systems Constitutional: Denies fever or chills [] Respiratory: Denies cough or shortness of breath [] Cardiovascular: No additional information not addressed in [facility] [] GI: Denies abdominal pain, nausea, vomiting, bloody stools or diarrhea [] : See history of present illness Musculoskeletal: Denies back pain or joint pain [] Integument: Denies rash or skin lesions [] Neurologic: Denies headache, focal weakness or sensory changes [] Endocrine: Denies polyuria or polydipsia [] All other systems were reviewed and found to be within normal limits, except as documented in this note. Current Medications Current Medications Current Medications Medications (Trade) Dose Ordered Sig/[facility] Start Time Stop Time Status Last Admin Dose Admin Ondansetron HCl (Zofran Odt) 4 mg 1X ONCE 03/14/18 14:15 03/14/18 14:16 DC 03/14/18 14:03 4 MG Oxycodone/ Acetaminophen (Percocet 10/325) 1 tab 1X ONCE 03/14/18 13:30 03/14/18 13:31 DC 03/14/18 13:39 1 TAB Allergies Allergies Allergies Coded Allergies Type Severity Reaction Last Updated Verified latex Allergy Severe Anaphylaxis 05/11/17 Yes Physical Exam Physical Exam Constitutional: Well developed, well nourished, no acute distress, non-toxic appearance. [] HENT: Normocephalic, atraumatic, bilateral external ears normal, oropharynx moist, no oral exudates, nose normal. [] Eyes: PERRLA, EOMI, conjunctiva normal, no discharge. [] Neck: Normal range of motion, no tenderness, supple, no stridor. [] Cardiovascular:Heart rate regular rhythm, no murmur [] Lungs & Thorax: Bilateral breath sounds clear to auscultation [] Abdomen: Bowel sounds normal, soft, pelvic tenderness, no masses, no pulsatile masses. [] Skin: Warm, dry, no erythema, no rash. [] Back: No tenderness, no CVA tenderness. [] Extremities: No tenderness, no cyanosis, no clubbing, ROM intact, no edema. [] Neurologic: Alert and oriented X 3, normal motor function, normal sensory function, no focal deficits noted. [] Psychologic: Affect normal, judgement normal, mood normal. [] Current Patient Data Vital Signs Vital Signs Date Time Temp Pulse Resp B/P (MAP) Pulse Ox O2 Delivery O2 Flow Rate FiO2 03/14/18 13:39 16 99 Room Air 03/14/18 13:20 98.7 94 139/83 (101) 98.7 Lab Values Laboratory Tests Test 03/14/18 13:09 03/14/18 13:17 Urine Collection Type Void Urine Color Yellow Urine Clarity Clear Urine pH 6.5 Urine Specific [place] 1.020 Urine Protein 30 mg/dL (NEG-TRACE) Urine Glucose (UA) Negative mg/dL (NEG) Urine Ketones (Stick) Negative mg/dL (NEG) Urine Blood Negative (NEG) Urine Nitrite Negative (NEG) Urine Bilirubin Negative (NEG) Urine Urobilinogen Dipstick 0.2 mg/dL (0.2 mg/dL) Urine Leukocyte Esterase Small (NEG) Urine RBC Occ /HPF (0-2) Urine WBC 1-4 /HPF (0-4) Urine Squamous Epithelial Cells Few /LPF Urine Bacteria Few /HPF (0-FEW) Urine Mucus Slight /LPF POC Urine HCG, Qualitative Hcg negative (Negative) EKG EKG [] Radiology/Procedures Radiology/Procedures [] Course & Med Decision Making Course & Med Decision Making Pertinent Labs and Imaging studies reviewed. (See chart for details) []The patient was given pain medication in the emergency department. She is to keep her follow-up appointment for possible surgery. She is to finish taking all of the medications that she was prescribed upon discharge from [facility]. She understands that she is not to drive or operate heavy machinery while taking the pain medication. She is in agreement with this plan. Kelsea Disclaimer Kelsea Disclaimer This electronic medical record was generated, in whole or in part, using a voice recognition dictation system. Departure Departure Impression: Primary Impression: Medication refill Disposition: HOME, SELF-CARE Condition: STABLE Referrals: NO PCP (PCP) Patient Instructions: Medication Refill, Emergency Department Additional Instructions: Keep your appointment for your follow-up appointment on . Do not drive or operate heavy machinery while taking this medication. Take the rest of your prescriptions as directed by the physician that prescribed them. Scripts Oxycodone/Apap 5-325 (PERCOCET 5-325 MG TABLET) 1 Each Tablet 1 TAB PO PRN Q6HRS PRN for PAIN, #10 TAB 0 Refills Prov: BEV VANEGAS APRN 03/14/18 BEV VANEGAS APRN Mar 14, 2018 14:14
== END 2018-03-14 14:20 | disposition home or self-care (01) ==
LOC: ER 12:32
DX: N72 Inflammatory disease of cervix uteri (principal); Z76.0 Encounter for issue of repeat prescription; J45.909 Unspecified asthma, uncomplicated; K58.9 Irritable bowel syndrome, unspecified; G89.29 Other chronic pain; Z91.040 Latex allergy status
CPT/HCPCS: 81001; 81025; 87086; 99284; Q0162

== ENCOUNTER 2018-03-18 14:58 | Emergency (ER) | payer OTHER ==
[~2018-03-18] VITALS: Ht 152.4 cm; Wt 47.6 kg
[2018-03-18 15:16] VITALS: BP 111/76
[2018-03-18] MEDS ORDERED: OXYC-323 PO (15:58)
--- NOTE | 2018-03-18 16:16 | PHYS DOC ---
Past Medical History Past Medical History: Asthma, Endometriosis, IBS, STD Additional Past Medical Histor: ulcer, endometriosis, Chronic R leg pain, Chronic Pelvic Pain, HPV Past Surgical History: Tonsillectomy, Other Additional Past Surgical Histo: L LEG FX, ENDOSCOPY,COLONOSCOPY Alcohol Use: Occasionally Drug Use: None Adult General Chief Complaint Chief Complaint: PAIN CONTROL HPI HPI Patient is a 27 year old female who presents with chronic pelvic pain. The patient primarily today is requesting a refill of pain medication. She does have chronic pelvic pain. She is scheduled for a hysterectomy to be done 5 days from now. The patient is followed by an OB physician in [facility]. Patient is very well known to this emergency department. 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 This occurs because the patient has received multiple prescriptions from multiple providers in the last 90 days. Today, she has no acute complaints. She is primarily requesting a medication refill to get her through until her surgery. Review of Systems Review of Systems Constitutional: Denies fever or chills Respiratory: Denies cough or shortness of breath Musculoskeletal: Denies back pain Integument: Denies rash or skin lesions Neurologic: Denies headache All other systems were reviewed and found to be within normal limits, except as documented in this note. Allergies Allergies Allergies Coded Allergies Type Severity Reaction Last Updated Verified latex Allergy Severe Anaphylaxis 05/11/17 Yes Physical Exam Physical Exam Constitutional: Well developed, well nourished, no acute distress, non-toxic appearance. HENT: Normocephalic, atraumatic Neck: Normal range of motion Cardiovascular:Heart rate regular rhythm, no murmur Abdomen: Bowel sounds normal, soft Skin: Warm, dry, no erythema Neurologic: Alert and oriented X 3 Psychologic: Affect normal Current Patient Data Lab Values Laboratory Tests Test 03/18/18 15:44 POC Urine HCG, Qualitative Hcg negative (Negative) EKG EKG [] Radiology/Procedures Radiology/Procedures [] Course & Med Decision Making Course & Med Decision Making Pertinent Labs and Imaging studies reviewed. (See chart for details) Patient is seen again for chronic pain in the emergency department. Because the patient has surgery scheduled a few days from now, I did prescribe her pain medications to get her through until her surgery. I informed the patient that neither myself nor any other provider would refill opiate medications between now and the time of her surgery or in the weeks following her surgery. The patient is advised to follow-up primarily with her OB physician for pain medications in the future. Kelsea Disclaimer Kelsea Disclaimer This electronic medical record was generated, in whole or in part, using a voice recognition dictation system. Departure Departure Impression: Primary Impression: Chronic female pelvic pain Disposition: HOME, SELF-CARE Condition: GOOD Patient Instructions: Pelvic Pain, Female Scripts Oxycodone/Apap 5-325 (PERCOCET 5-325 MG TABLET) 1 Each Tablet 1-2 EACH PO PRN TID PRN for severe pain, #20 TAB pain Prov: ELLIE RODRIGUEZ DO 03/18/18 ELLIE RODRIGUEZ DO Mar 18, 2018 16:16
== END 2018-03-18 16:22 | disposition home or self-care (01) ==
LOC: ER 14:58
DX: G89.29 Other chronic pain (principal); R10.2 Pelvic and perineal pain; Z90.89 Acquired absence of other organs; Z91.040 Latex allergy status
CPT/HCPCS: 81025; 99283

== ENCOUNTER 2018-04-06 12:21 | Emergency (ER) | payer OTHER ==
[~2018-04-06] VITALS: Ht 152.4 cm; Wt 45.4 kg
[2018-04-06 12:29] VITALS: BP 117/74
[2018-04-06] MEDS ORDERED: OXYC-328 PO (13:20)
--- NOTE | 2018-04-06 13:34 | PHYS DOC ---
Past Medical History Past Medical History: Asthma, Endometriosis, IBS, STD Additional Past Medical Histor: ulcer, Chronic R leg pain, Chronic Pelvic Pain , HPV Past Surgical History: Tonsillectomy, Other Additional Past Surgical Histo: L LEG FX, ENDOSCOPY,COLONOSCOPY, Laproscopic Alcohol Use: Occasionally Drug Use: None Adult General Chief Complaint Chief Complaint: PELVIC PAIN HPI HPI Patient is a 27 year old female who presents with chronic pelvic pain. Patient is well-known to me. She frequently presents with pelvic pain which she relates is 2/2 endometriosis. Last time I saw her, she was scheduled for upper stoppage surgery by her OB doctor. She did undergo the surgery on 22 March. Patient states she had multiple areas of endometriosis which were removed and also some areas which were not able to be removed due to proximity to blood vessels. Today, the patient complains of her usual pelvic pain. She states her postoperative pain is improved but she continues to have ongoing endometriosis related pain. She has a follow-up appointment in 10 days with her OB physician. No fever or chills. No additional complaints. She has some scant amount of vaginal bleeding which sounds minimal. Review of Systems Review of Systems Constitutional: Denies fever Eyes: Denies change in visual acuity HENT: Denies nasal congestion Respiratory: Denies cough Cardiovascular: No additional information not addressed in HPI GI: Denies abdominal pain : Denies dysuria or hematuria Musculoskeletal: Denies back pain Integument: Denies rash Neurologic: Denies headache All other systems were reviewed and found to be within normal limits, except as documented in this note. Allergies Allergies Allergies Coded Allergies Type Severity Reaction Last Updated Verified latex Allergy Severe Anaphylaxis 05/11/17 Yes Physical Exam Physical Exam Constitutional: Well developed, well nourished, no acute distress HENT: Normocephalic, atraumatic, bilateral external ears normal Eyes: PERRLA, EOMI, conjunctiva normal Neck: Normal range of motion Cardiovascular:Heart rate regular rhythm, no murmur Lungs & Thorax: Bilateral breath sounds clear to auscultation Abdomen: Bowel sounds normal, soft, no tenderness, three well-healing incision laparoscopic incisions are present. normal bowel sounds Skin: Warm, dry, no erythema, no rash. Back: No tenderness Extremities: No edema Neurologic: Alert and oriented X 3 Psychologic: Affect normal Current Patient Data Lab Values Laboratory Tests Test 04/06/18 13:07 POC Urine HCG, Qualitative Hcg negative (Negative) EKG EKG [] Radiology/Procedures Radiology/Procedures [] Course & Med Decision Making Course & Med Decision Making Pertinent Labs and Imaging studies reviewed. (See chart for details) Patient is seen in the emergency department for chronic pelvic pain. Her symptoms are not improved following her surgery which was 2 weeks earlier. At last visit, I advised patient I would not give her any additional narcotic pain medication until she undergoes surgery. Now she does return. She has scheduled follow-up already. Patient continues to not have a primary care physician and has not been evaluated by pain management which were my recommendations previously. Today, I will give her some pain medications. I told her I would not give her any additional pain medication in the future. I also recommend no additional ER providers give this patient opiate pain medications w/o evaluating her [facility] record first. Today, she is discharged to home and Rx is provided. Dragon Disclaimer Dragon Disclaimer This electronic medical record was generated, in whole or in part, using a voice recognition dictation system. Departure Departure Impression: Primary Impression: Chronic pelvic pain in female Disposition: 01 HOME, SELF-CARE Condition: GOOD Referrals: NO PCP (PCP) Patient Instructions: Pelvic Pain, Female Scripts Oxycodone/Apap 10-325 (PERCOCET 10-325 MG TABLET) 1 Each Tablet 1 TAB PO BID PRN for severe pain, #40 TAB Prov: ELLIE RODRIGUEZ DO 04/06/18 ELLIE RODRIGUEZ DO Apr 06, 2018 13:34
== END 2018-04-06 13:25 | disposition home or self-care (01) ==
LOC: ER 12:21
DX: G89.29 Other chronic pain (principal); R10.2 Pelvic and perineal pain; J45.909 Unspecified asthma, uncomplicated; Z90.89 Acquired absence of other organs; Z91.040 Latex allergy status
CPT/HCPCS: 81025; 99283

== ENCOUNTER 2018-04-19 13:49 | Emergency (ER) | payer OTHER ==
[~2018-04-19] VITALS: Ht 152.4 cm; Wt 48.5 kg
[2018-04-19 14:20] VITALS: BP 112/57
[2018-04-19] MEDS ORDERED: OXYC-328 PO (14:53)
--- NOTE | 2018-04-19 14:54 | PHYS DOC ---
Past Medical History Past Medical History: Asthma, Endometriosis, IBS, STD Additional Past Medical Histor: ulcer, Chronic R leg pain, Chronic Pelvic Pain , HPV Past Surgical History: Tonsillectomy, Other Additional Past Surgical Histo: L LEG FX, ENDOSCOPY,COLONOSCOPY, Laproscopic Alcohol Use: Occasionally Drug Use: None Adult General Chief Complaint Chief Complaint: ABDOMINAL PAIN [facility] HPI Patient is a 28 year old female presents with chronic pain. Patient reports she has chronic pelvic pain. She reports she normally takes Percocet for this. She did go see her SENIOR DATA ANALYST a couple of days ago, but did not receive a prescription for pain medication. She is requesting a short-term prescription until she can contact her SENIOR DATA ANALYST for this. She denies any changes in her symptoms. Review of Systems Review of Systems Constitutional: Denies fever or chills [] Respiratory: Denies cough or shortness of breath [] Cardiovascular: No additional information not addressed in HPI [] GI: Reports pelvic pain. Denies nausea vomiting or diarrhea : Denies dysuria or hematuria [] Musculoskeletal: Denies back pain or joint pain [] Integument: Denies rash or skin lesions [] Neurologic: Denies headache, focal weakness or sensory changes [] All other systems were reviewed and found to be within normal limits, except as documented in this note. Allergies Allergies Allergies Coded Allergies Type Severity Reaction Last Updated Verified latex Allergy Severe Anaphylaxis 05/11/17 Yes Physical Exam Physical Exam Constitutional: Well developed, well nourished, no acute distress, non-toxic appearance. [] HENT: Normocephalic, atraumatic Eyes: PERRLA, EOMI, conjunctiva normal, no discharge. [] Neck: Normal range of motion, no tenderness, supple, no stridor. [] Cardiovascular: Normal heart rate Lungs & Thorax: No increased work of breathing Skin: Warm, dry, no erythema, no rash. [] Extremities: ROM intact, no edema. [] Neurologic: Alert and oriented X 3, normal motor function, normal sensory function, no focal deficits noted. [] Psychologic: Affect normal, judgement normal, mood normal. [] Current Patient Data Vital Signs Vital Signs Date Time Temp Pulse Resp B/P (MAP) Pulse Ox O2 Delivery O2 Flow Rate FiO2 04/19/18 14:20 98.0 80 14 112/57 (75) 99 98.0 Lab Values Laboratory Tests Test 04/19/18 14:37 POC Urine HCG, Qualitative Hcg negative (Negative) EKG EKG [] Radiology/Procedures Radiology/Procedures [] Course & Med Decision Making Course & Med Decision Making Pertinent Labs and Imaging studies reviewed. (See chart for details) Plan: Percocet Rx, follow-up with SENIOR DATA ANALYST, return precautions reviewed Staff Physician Addendum: I was working in the ER during the course of this patient's visit. I was available for consultation as needed, but I was not directly involved in the care of this patient. Dragon Disclaimer Dragon Disclaimer This electronic medical record was generated, in whole or in part, using a voice recognition dictation system. Departure Departure Impression: Primary Impression: Chronic pelvic pain in female Disposition: 01 HOME, SELF-CARE Condition: GOOD Referrals: UNKNOWN PCP NAME (PCP) Patient Instructions: Pelvic Pain, Female Scripts Oxycodone/Apap 10-325 (PERCOCET 10-325 MG TABLET) 1 Each Tablet 1 TAB PO QID PRN for PAIN, #10 TAB Prov: OSITO PATEL APRN 04/19/18 OSITO PATEL APRN Apr 19, 2018 14:54 HORTENCIA FLYNN MD Apr 20, 2018 06:23
== END 2018-04-19 15:00 | disposition home or self-care (01) ==
LOC: ER 13:49
DX: G89.29 Other chronic pain (principal); R10.2 Pelvic and perineal pain; J45.909 Unspecified asthma, uncomplicated; K58.9 Irritable bowel syndrome, unspecified; Z91.040 Latex allergy status
CPT/HCPCS: 81025; 99283

== ENCOUNTER 2018-04-22 15:25 | Emergency (ER) | payer OTHER ==
[~2018-04-22] VITALS: Ht 152.4 cm; Wt 49.9 kg
[2018-04-22 16:06] VITALS: BP 120/60
--- NOTE | 2018-04-22 16:06 | PHYS DOC ---
Past Medical History Past Medical History: Anxiety, Asthma, Depression, Endometriosis, IBS, STD Additional Past Medical Histor: ulcer, Chronic R leg pain, Chronic Pelvic Pain , HPV Past Surgical History: Tonsillectomy, Other Additional Past Surgical Histo: L LEG FX, ENDOSCOPY,COLONOSCOPY, Laproscopic Alcohol Use: Occasionally Drug Use: None Adult General Chief Complaint Chief Complaint: ABDOMINAL PAIN HPI HPI Patient is a 28 year old female presented to ER today for evaluation of lower abdominal pain that she has been experiencing for a week. Patient has chronic lower abdominal pain for a long time, she is scheduled for hysterectomy. Patient had been evaluated here numerous time for the same problem. Patient was here 3 days ago for the same medical condition, she was sent home with narcotic for pain control. Patient denies any fever, no nausea vomiting. Review of Systems Review of Systems Constitutional: Denies fever or chills [] Eyes: Denies change in visual acuity, redness, or eye pain [] HENT: Denies nasal congestion or sore throat [] Respiratory: Denies cough or shortness of breath [] Cardiovascular: No additional information not addressed in HPI [] GI: POSITIVE FOR LOWER abdominal pain, NO nausea, vomiting, bloody stools or diarrhea [] : Denies dysuria or hematuria [] Musculoskeletal: Denies back pain or joint pain [] Integument: Denies rash or skin lesions [] Neurologic: Denies headache, focal weakness or sensory changes [] Endocrine: Denies polyuria or polydipsia [] All other systems were reviewed and found to be within normal limits, except as documented in this note. Allergies Allergies Allergies Coded Allergies Type Severity Reaction Last Updated Verified latex Allergy Severe Anaphylaxis 05/11/17 Yes Physical Exam Physical Exam Constitutional: Well developed, well nourished, no acute distress, non-toxic appearance. [] HENT: Normocephalic, atraumatic, bilateral external ears normal, oropharynx moist, no oral exudates, nose normal. [] Eyes: PERRLA, EOMI, conjunctiva normal, no discharge. [] Neck: Normal range of motion, no tenderness, supple, no stridor. [] Cardiovascular:Heart rate regular rhythm, no murmur [] Lungs & Thorax: Bilateral breath sounds clear to auscultation [] Abdomen: Bowel sounds normal, soft, no tenderness, no masses, no pulsatile masses. [] Skin: Warm, dry, no erythema, no rash. [] Back: No tenderness, no CVA tenderness. [] Extremities: No tenderness, no cyanosis, no clubbing, ROM intact, no edema. [] Neurologic: Alert and oriented X 3, normal motor function, normal sensory function, no focal deficits noted. [] Psychologic: Affect normal, judgement normal, mood normal. [] Current Patient Data Vital Signs Vital Signs Date Time Temp Pulse Resp B/P (MAP) Pulse Ox O2 Delivery O2 Flow Rate FiO2 04/22/18 16:06 98.0 99 16 120/60 (80) 98 Room Air 98.0 EKG EKG [] Radiology/Procedures Radiology/Procedures [] Course & Med Decision Making Course & Med Decision Making Pertinent Labs and Imaging studies reviewed. (See chart for details) She had chronic lower abdominal pain, and pelvic pain, she did not need extensive workup again. This provider offered to give her TRAMADOL for her pain control however patient declined, patient says she has tramadol already at home. She wants some narcotics. This provider advised her that we will not provide her narcotic for chronic medical condition. Dragon Disclaimer Dragon Disclaimer This electronic medical record was generated, in whole or in part, using a voice recognition dictation system. Departure Departure Impression: Primary Impression: Chronic pelvic pain in female Disposition: 01 HOME, SELF-CARE Condition: STABLE Referrals: UNKNOWN PCP NAME (PCP) follow up with your pcp for your chronic pain syndrome Patient Instructions: Chronic Pain ANNETTE GROVER DO Apr 22, 2018 16:06
== END 2018-04-22 16:12 | disposition home or self-care (01) ==
LOC: ER 15:25
DX: G89.29 Other chronic pain (principal); R10.2 Pelvic and perineal pain; J45.909 Unspecified asthma, uncomplicated; K58.9 Irritable bowel syndrome, unspecified; Z91.040 Latex allergy status
CPT/HCPCS: 99281

== ENCOUNTER 2018-04-24 09:06 | Emergency (ER) | payer OTHER ==
[~2018-04-24] VITALS: Ht 152.4 cm; Wt 49.9 kg
[2018-04-24 09:35] VITALS: BP 135/77
[2018-04-24 10:21] LABS: BILIRUBIN,URINE SMALL (NEG); CLARITY,URINE CLEAR; COLOR,URINE AMBER; NITRITE,URINE NEGATIVE (NEG); PROTEIN,URINE 100 mg/dL (NEG-TRACE); UROBILINOGEN,URINE 0.2 mg/dL (0.2 mg/dL)
[2018-04-24 10:23] LABS: BARBITURATES NEG (NEG); BENZODIAZEPINES NEG (NEG); CANNABINOIDS POS (NEG); COCAINE NEG (NEG); METHADONE NEG (NEG); OPIATES POS (NEG); PHENCYCLIDINE NEG (NEG)
[2018-04-24 10:25] LABS: AMPHETAMINE/METHAMPHETAMINE POS (NEG)
[2018-04-24 10:26] LABS: BASO # 0.1 x10^3/uL (0.0-0.2); BASO % 1 % (0-3); EOS # 0.2 x10^3/uL (0.0-0.7); EOS % 3 % (0-3); HEMATOCRIT 41.7 % (36.0-47.0); HEMOGLOBIN 14.6 g/dL (12.0-15.5); LYMPH % 38 % (24-48); MEAN CORPUSCULAR HEMOGLOBIN 33 pg (25-35); MEAN CORPUSCULAR HGB CONC 35 g/dL (31-37); MEAN CORPUSCULAR VOLUME 94 fL (79-100); MONO # 0.5 x10^3/uL (0.0-1.1); MONO % 7 % (0-9); NEUT # 4.2 x10^3uL (1.8-7.7); NEUT % 53 % (31-73); PLATELET COUNT 276 x10^3/uL (140-400); RED BLOOD COUNT 4.45 x10^6/uL (3.50-5.40); RED CELL DISTRIBUTION WIDTH 13.6 % (11.5-14.5); WHITE BLOOD COUNT 7.9 x10^3/uL (4.0-11.0)
[2018-04-24 10:39] LABS: CALCIUM 9.4 mg/dL (8.5-10.1); CREATININE 0.8 mg/dL (0.6-1.0); GFR 104.9; POTASSIUM 3.5 mmol/L (3.5-5.1)
[2018-04-24 10:45] LABS: BACTERIA,URINE 0 /HPF (0-FEW); RBC,URINE 0 /HPF (0-2); SQUAMOUS EPITHELIAL CELL,UR MANY /LPF; WBC,URINE 0 /HPF (0-4)
--- NOTE | 2018-04-24 10:56 | PHYS DOC ---
Past Medical History Past Medical History: Anxiety, Asthma, Depression, Endometriosis, IBS, STD Additional Past Medical Histor: ulcer, Chronic R leg pain, Chronic Pelvic Pain , HPV Past Surgical History: Tonsillectomy, Other Additional Past Surgical Histo: L LEG FX, ENDOSCOPY,COLONOSCOPY, Laproscopic Alcohol Use: Occasionally Drug Use: None Adult General Chief Complaint Chief Complaint: ABDOMINAL PAIN HPI HPI Patient is a 28 year old female who presents with chronic pelvic pain and states at this time she has urinary frequency, burning and left hip pain that radiates down into her groin and lower abdomen. Patient states that the pain will radiate into her left buttock and left leg. Patient states she has had some nausea and diarrhea. Patient states that she is supposed to follow-up with pain management in May and she is not being loaded into primary care. Patient states that she has not followed up with gynecology yet. Patient states she currently takes ibuprofen, oxycodone, diazepam, naproxen,and [place]il[place]. Review of Systems Review of Systems Constitutional: Denies fever or chills [] Eyes: Denies change in visual acuity, redness, or eye pain [] HENT: Denies nasal congestion or sore throat [] Respiratory: Denies cough or shortness of breath [] Cardiovascular: No additional information not addressed in HPI [] GI: Low left abdominal pain, nausea, denies vomiting, bloody stools, has had diarrhea [] : Dysuria. Denies hematuria [] Musculoskeletal: Denies back pain or joint pain [] Integument: Denies rash or skin lesions [] Neurologic: Denies headache, focal weakness or sensory changes [] Endocrine: Denies polyuria or polydipsia [] All other systems were reviewed and found to be within normal limits, except as documented in this note. Allergies Allergies Allergies Coded Allergies Type Severity Reaction Last Updated Verified latex Allergy Severe Anaphylaxis 05/11/17 Yes Physical Exam Physical Exam Constitutional: Well developed, well nourished, no acute distress, non-toxic appearance. [] HENT: Normocephalic, atraumatic, bilateral external ears normal, oropharynx moist, no oral exudates, nose normal. [] Eyes: PERRLA, EOMI, conjunctiva normal, no discharge. [] Neck: Normal range of motion, no tenderness, supple, no stridor. [] Cardiovascular:Heart rate regular rhythm, no murmur [] Lungs & Thorax: Bilateral breath sounds clear to auscultation [] Abdomen: Bowel sounds normal, soft, Lower left abdominal tenderness, no masses, no pulsatile masses. [] Skin: Warm, dry, no erythema, no rash. [] Back: No tenderness, no CVA tenderness. [] Extremities: No tenderness, no cyanosis, no clubbing, ROM intact, no edema. [] Neurologic: Alert and oriented X 3, normal motor function, normal sensory function, no focal deficits noted. [] Psychologic: Affect normal, judgement normal, mood normal. [] Current Patient Data Vital Signs Vital Signs Date Time Temp Pulse Resp B/P (MAP) Pulse Ox O2 Delivery O2 Flow Rate FiO2 04/24/18 09:35 99.1 87 18 135/77 (96) 99 Room Air 99.1 Lab Values Laboratory Tests Test 04/24/18 09:44 04/24/18 09:50 04/24/18 10:10 POC Urine HCG, Qualitative Hcg negative (Negative) Urine Opiates Screen Pos (NEG) Urine Methadone Screen Neg (NEG) Urine Barbiturates Neg (NEG) Urine Phencyclidine Screen Neg (NEG) Urine Amphetamine/Methamphetamine Pos (NEG) Urine Benzodiazepines Screen Neg (NEG) Urine Cocaine Screen Neg (NEG) Urine Cannabinoids Screen Pos (NEG) Urine Ethyl Alcohol Neg (NEG) Urine Collection Type Unknown Urine Color Soraya Urine Clarity Clear Urine pH 6.0 Urine Specific [place] >=1.030 Urine Protein 100 mg/dL (NEG-TRACE) Urine Glucose (UA) Negative mg/dL (NEG) Urine Ketones (Stick) 15 mg/dL (NEG) Urine Blood Small (NEG) Urine Nitrite Negative (NEG) Urine Bilirubin Small (NEG) Urine Urobilinogen Dipstick 0.2 mg/dL (0.2 mg/dL) Urine Leukocyte Esterase Negative (NEG) Urine RBC 0 /HPF (0-2) Urine WBC 0 /HPF (0-4) Urine Squamous Epithelial Cells Many /LPF Urine Bacteria 0 /HPF (0-FEW) White Blood Count 7.9 x10^3/uL (4.0-11.0) Red Blood Count 4.45 x10^6/uL (3.50-5.40) Hemoglobin 14.6 g/dL (12.0-15.5) Hematocrit 41.7 % (36.0-47.0) Mean Corpuscular Volume 94 fL (79-100) Mean Corpuscular Hemoglobin 33 pg (25-35) Mean Corpuscular Hemoglobin Concent 35 g/dL (31-37) Red Cell Distribution Width 13.6 % (11.5-14.5) Platelet Count 276 x10^3/uL (140-400) Neutrophils (%) (Auto) 53 % (31-73) Lymphocytes (%) (Auto) 38 % (24-48) Monocytes (%) (Auto) 7 % (0-9) Eosinophils (%) (Auto) 3 % (0-3) Basophils (%) (Auto) 1 % (0-3) Neutrophils # (Auto) 4.2 x10^3uL (1.8-7.7) Lymphocytes # (Auto) 3.0 x10^3/uL (1.0-4.8) Monocytes # (Auto) 0.5 x10^3/uL (0.0-1.1) Eosinophils # (Auto) 0.2 x10^3/uL (0.0-0.7) Basophils # (Auto) 0.1 x10^3/uL (0.0-0.2) Sodium Level 139 mmol/L (136-145) Potassium Level 3.5 mmol/L (3.5-5.1) Chloride Level 101 mmol/L (98-107) Carbon Dioxide Level 28 mmol/L (21-32) Anion Gap 10 (6-14) Blood Urea Nitrogen 11 mg/dL (7-20) Creatinine 0.8 mg/dL (0.6-1.0) Estimated GFR (Cockcroft-Gault) 104.9 Glucose Level 90 mg/dL (70-99) Calcium Level 9.4 mg/dL (8.5-10.1) Laboratory Tests 04/24/18 10:10 Laboratory Tests 04/24/18 10:10 EKG EKG [] Radiology/Procedures Radiology/Procedures [] Course & Med Decision Making Course & Med Decision Making Patient is a 28 year old female who presents with chronic pelvic pain and states at this time she has urinary frequency, burning and left hip pain that radiates down into her groin and lower abdomen. Patient states that the pain will radiate into her left buttock and left leg. Patient states she has had some nausea and diarrhea. Patient states that she is supposed to follow-up with pain management in May and she is not being loaded into primary care. Patient states that she has not followed up with gynecology yet. Patient states she currently takes ibuprofen, oxycodone, diazepam, naproxen,and [place]. Upon examination patient has low left abdominal pain only with palpation. Skin is pink warm and dry. Ulcer clear to auscultation all lobes. Heart rate is regular without murmur. Patient's urinalysis shows no infection but she is positive for methamphetamines and marijuana. Patient's labs are unremarkable. Patient is asking for pain medications. I told the patient that she should just continue taking the medications that she already has for pain. Patient states that she is all out of her medications. Patient is told that she will not be getting narcotics as she has had several oxycodone prescriptions written and she is positive for methamphetamines. Patient states she does not remember taking methamphetamines that she is going to look into that. Patient is ambulatory. Patient does deny drug use, states she doesn't smoke, doesn't drink alcohol. Patient states she is allergic to latex. Patient is sent home and told to refer with her pain management and primary care and cash management associate as she has been previously directed and to keep her May appointment. Staff Physician Addendum: I was working in the ER during the course of this patient's visit. I was available for consultation as needed, but I was not directly involved in the care of this patient. [] Dragon Disclaimer Dragon Disclaimer This electronic medical record was generated, in whole or in part, using a voice recognition dictation system. Departure Departure Impression: Primary Impression: Chronic pelvic pain in female Disposition: 01 HOME, SELF-CARE Condition: STABLE Referrals: UNKNOWN PCP NAME (PCP) Patient Instructions: Abdominal Pain Additional Instructions: Follow up with your Primary care, Pain doctor, and TRANSONIC ENGINEER doctor. Stop using Methamphetamines and Marijuana KEL PARKER APRN Apr 24, 2018 10:56 HORTENCIA FLYNN MD Apr 24, 2018 17:07
== END 2018-04-24 11:27 | disposition home or self-care (01) ==
LOC: ER 09:06
DX: G89.29 Other chronic pain (principal); R10.2 Pelvic and perineal pain; R35.0 Frequency of micturition; M25.552 Pain in left hip; R10.32 Left lower quadrant pain; M54.5 Low back pain; R19.7 Diarrhea, unspecified; R11.0 Nausea; K58.9 Irritable bowel syndrome, unspecified; J45.909 Unspecified asthma, uncomplicated; Z91.040 Latex allergy status
CPT/HCPCS: 36415; 80048; 80307; 81001; 81025; 85025; 99284; G0479

== ENCOUNTER 2018-05-03 14:06 | Emergency (ER) | payer OTHER ==
[~2018-05-03] VITALS: Ht 152.4 cm; Wt 49.9 kg
[2018-05-03 14:21] VITALS: BP 122/76
[2018-05-03] MEDS ORDERED: OXYC-328 PO (14:45)
--- NOTE | 2018-05-03 14:45 | PHYS DOC ---
Past Medical History Past Medical History: Anxiety, Asthma, Depression, Endometriosis, IBS, STD, Other Additional Past Medical Histor: ulcer, Chronic R leg pain, Chronic ABHD/Pelvic Pain, HPV Past Surgical History: Tonsillectomy, Other Additional Past Surgical Histo: L LEG FX, ENDOSCOPY,COLONOSCOPY, Laproscopic Alcohol Use: Occasionally Drug Use: None Adult General Chief Complaint Chief Complaint: ABDOMINAL PAIN HPI HPI Patient is a 28 year old female who presents with chronic pain. Patient reports she is out of her pain medications. She is attempting to get established with a primary care physician who plans to place the patient on a pain contract. Patient reports when she talked to the office today, they stated it may be a few more days before they can get her in. She denies any new or different symptoms. Review of Systems Review of Systems Constitutional: Denies fever or chills [] Cardiovascular: No additional information not addressed in HPI [] GI: Denies nausea, vomiting. Chronic pain present Integument: Denies rash or skin lesions [] Neurologic: Denies headache, focal weakness or sensory changes [] All other systems were reviewed and found to be within normal limits, except as documented in this note. Allergies Allergies Allergies Coded Allergies Type Severity Reaction Last Updated Verified latex Allergy Severe Anaphylaxis 05/11/17 Yes Physical Exam Physical Exam Constitutional: Well developed, well nourished, no acute distress, non-toxic appearance. [] HENT: Normocephalic, atraumatic Eyes: PERRLA, EOMI, conjunctiva normal, no discharge. [] Neck: Normal range of motion, supple, no stridor. [] Lungs & Thorax: No increased work of breathing Skin: Warm, dry, no erythema, no rash. [] Extremities: ROM intact, no edema. [] Neurologic: Alert and oriented X 3, normal motor function, normal sensory function, no focal deficits noted. [] Psychologic: Affect normal, judgement normal, mood normal. [] Current Patient Data Vital Signs Vital Signs Date Time Temp Pulse Resp B/P (MAP) Pulse Ox O2 Delivery O2 Flow Rate FiO2 05/03/18 14:21 99.4 103 20 122/76 (91) 100 Room Air 99.4 EKG EKG [] Radiology/Procedures Radiology/Procedures [] Course & Med Decision Making Course & Med Decision Making Pertinent Labs and Imaging studies reviewed. (See chart for details) I will give patient the benefit of the doubt and refill a prescription for her today. However, patient needs to follow through and get established with someone who can provide her pain medication on a regular basis. I explained to patient this is the expectation. Plan: Percocet Rx, follow-up with PCP, return precautions reviewed[] Kelsea Disclaimer Dragon Disclaimer This electronic medical record was generated, in whole or in part, using a voice recognition dictation system. Departure Departure Impression: Primary Impression: Chronic pelvic pain in female Disposition: HOME, SELF-CARE Condition: GOOD Referrals: UNKNOWN PCP NAME (PCP) Patient Instructions: Medication Refill, Emergency Department Additional Instructions: Keep appointments with PCP for pain contract. Scripts Oxycodone/Apap 10-325 (PERCOCET 10-325 MG TABLET) 1 Each Tablet 1 TAB PO PRN Q6HRS PRN for PAIN, #20 TAB 0 Refills Prov: OSITO PATEL APRN 05/03/18 OSITO PATEL APRN May 03, 2018 14:45
== END 2018-05-03 14:49 | disposition home or self-care (01) ==
LOC: ER 14:06
DX: G89.29 Other chronic pain (principal); R10.2 Pelvic and perineal pain; J45.909 Unspecified asthma, uncomplicated; K58.9 Irritable bowel syndrome, unspecified; Z91.040 Latex allergy status
CPT/HCPCS: 99283

== ENCOUNTER 2018-05-09 11:02 | Emergency (ER) | payer OTHER ==
--- NOTE | 2018-05-09 11:49 | PHYS DOC ---
Past Medical History Past Medical History: Anxiety, Asthma, Depression, Endometriosis, IBS, STD, Other Additional Past Medical Histor: ulcer, Chronic R leg pain, Chronic ABHD/Pelvic Pain, HPV Past Surgical History: Tonsillectomy, Other Additional Past Surgical Histo: L LEG FX, ENDOSCOPY,COLONOSCOPY, Laproscopic Alcohol Use: Occasionally Drug Use: None Adult General Chief Complaint Chief Complaint: ABDOMINAL PAIN HPI HPI Patient is a 28 year old female who presents with a request for a refill of her narcotic pain medication. She states that she is unable to see her primary care provider until Tuesday and is out of her pain medication. Review of Systems Review of Systems Constitutional: Denies fever or chills [] Eyes: Denies change in visual acuity, redness, or eye pain [] HENT: Denies nasal congestion or sore throat [] Respiratory: Denies cough or shortness of breath [] Cardiovascular: No additional information not addressed in HPI [] GI: Denies abdominal pain, nausea, vomiting, bloody stools or diarrhea [] : Denies dysuria or hematuria [] Musculoskeletal: Denies back pain or joint pain [] Integument: Denies rash or skin lesions [] Neurologic: Denies headache, focal weakness or sensory changes [] Endocrine: Denies polyuria or polydipsia [] All other systems were reviewed and found to be within normal limits, except as documented in this note. Allergies Allergies Allergies Coded Allergies Type Severity Reaction Last Updated Verified latex Allergy Severe Anaphylaxis 05/11/17 Yes Physical Exam Physical Exam Constitutional: Well developed, well nourished, no acute distress, non-toxic appearance. [] HENT: Normocephalic, atraumatic, bilateral external ears normal, oropharynx moist, no oral exudates, nose normal. [] Eyes: PERRLA, EOMI, conjunctiva normal, no discharge. [] Neck: Normal range of motion, no tenderness, supple, no stridor. [] Cardiovascular:Heart rate regular rhythm, no murmur [] Lungs & Thorax: Bilateral breath sounds clear to auscultation [] Abdomen: Bowel sounds normal, soft, no tenderness, no masses, no pulsatile masses. [] Skin: Warm, dry, no erythema, no rash. [] Back: No tenderness, no CVA tenderness. [] Extremities: No tenderness, no cyanosis, no clubbing, ROM intact, no edema. [] Neurologic: Alert and oriented X 3, normal motor function, normal sensory function, no focal deficits noted. [] Psychologic: Affect normal, judgement normal, mood normal. [] EKG EKG [] Radiology/Procedures Radiology/Procedures [] Course & Med Decision Making Course & Med Decision Making Pertinent Labs and Imaging studies reviewed. (See chart for details) []I explained to the patient that I would not refill her narcotic pain medication. She did get a refill of her OxyContin at this facility 3 days ago. She then asked if I would refill her anxiety medication. I explained that she would not be receiving any controlled substances from this facility. She would need follow-up with her primary. Kelsea Disclaimer Shemaron Disclaimer This electronic medical record was generated, in whole or in part, using a voice recognition dictation system. Departure Departure Impression: Primary Impression: Drug-seeking behavior Disposition: 01 HOME, SELF-CARE Condition: STABLE Referrals: PETER MARINO (PCP) Patient Instructions: Drug Abuse and Addiction-[facility] Additional Instructions: The patient is encouraged to keep her appointment with her primary care provider. I explained I will not refill her controlled substances in the emergency department as she was just here a few days ago for a refill of her pain medication. BEV VANEGAS APRN May 09, 2018 11:49
== END 2018-05-09 11:53 | disposition home or self-care (01) ==
LOC: ER 11:02
DX: Z76.5 Malingerer [conscious simulation] (principal); J45.909 Unspecified asthma, uncomplicated; Z90.49 Acquired absence of other specified parts of digestive tract; Z91.040 Latex allergy status
CPT/HCPCS: 99281

== ENCOUNTER 2018-05-11 23:56 | Emergency (ER) | payer OTHER ==
[~2018-05-11] VITALS: Ht 152.4 cm; Wt 49.9 kg
--- NOTE | 2018-05-12 01:32 | PHYS DOC ---
Past Medical History Past Medical History: Anxiety, Asthma, Depression, Endometriosis, IBS, STD, Other Additional Past Medical Histor: ulcer, Chronic R leg pain, Chronic ABHD/Pelvic Pain, HPV Past Surgical History: Tonsillectomy, Other Additional Past Surgical Histo: L LEG FX, ENDOSCOPY,COLONOSCOPY, Laproscopic Alcohol Use: Occasionally Drug Use: None Adult General Chief Complaint Chief Complaint: VAGINAL PROBLEM HPI HPI Patient is a 28-year-old female who presents to the emergency department for evaluation. She has a history of chronic pelvic pain and endometriosis and states that 2 days ago she was having intercourse, and felt a tearing sensation in her vaginal area. She states she had a small amount of bleeding which has since resolved, but she has been having lower abdominal/pelvic pain since that time. She reports having low-grade fevers at home. She has not had any vomiting , or urinary symptoms. She reports a yellowish vaginal discharge as well. There are no alleviating or exacerbating factors to the patient's symptoms. She is seen in this emergency department frequently for pelvic pain. The patient is familiar today from prior ER visit. Review of Systems Review of Systems Constitutional: Reports subjective fevers.[] Eyes: Denies change in visual acuity, redness, or eye pain [] HENT: Denies nasal congestion or sore throat [] Respiratory: Denies cough or shortness of breath [] Cardiovascular:The patient denies any shortness of breath, chest pain, palpitations, or orthopnea [] GI: Denies nausea, vomiting, bloody stools or diarrhea [] : No additional information not addressed in HPI [] Musculoskeletal: Denies back pain or joint pain [] Integument: Denies rash or skin lesions [] Neurologic: Denies headache, focal weakness or sensory changes [] Endocrine: Denies polyuria or polydipsia [] All other systems were reviewed and found to be within normal limits, except as documented in this note. Current Medications Current Medications Current Medications Medications (Trade) Dose Ordered Sig/Luis Start Time Stop Time Status Last Admin Dose Admin Ketorolac Tromethamine (Toradol 30mg Vial) 30 mg 1X ONCE 05/12/18 02:00 05/12/18 02:01 DC 05/12/18 01:55 30 MG Sodium Chloride 1,000 ml @ 1,000 mls/hr Q1H 05/12/18 02:00 05/12/18 02:59 DC 05/12/18 01:55 1,000 MLS/HR Allergies Allergies Allergies Coded Allergies Type Severity Reaction Last Updated Verified latex Allergy Severe Anaphylaxis 05/11/17 Yes Physical Exam Physical Exam PHYSICAL EXAM: CONSTITUTIONAL: Well developed, well nourished HEAD: normocephalic, atraumatic EENT: PERRL, EOMI. Conjunctivae normal color, sclerae non-icteric; moist mucous membranes. NECK: Supple, non-tender; no meningismus. LUNGS: Lungs CTA, breathing even and unlabored. Normal air movement. HEART: Regular rate and rhythm, no murmur CHEST: No deformity; non-tender ABDOMEN: The abdomen is soft, there is mild superpubic tenderness to palpation, without rebound or guarding. Normal bowel sounds are present. The remainder the abdomen is soft and non-tender, no masses or bruits. EXTREM: Normal ROM; no deformity, no calf tenderness. Normal pulses palpable in all extremities. There is no pedal edema. SKIN: No rash; no diaphoresis NEURO: Alert; normal speech and cognition; CN's grossly intact; strength grossly intact without focal deficit. BACK: No CVA TTP. PELVIC EXAM: Normal external genitalia. There is a small amount of thin white vaginal discharge without active cervical discharge. The cervix otherwise appears normal. There is no active vaginal bleeding and no obvious wounds or lacerations noted on vaginal exam. There is diffuse tenderness to palpation on bimanual exam, without focal adnexal mass or focal tenderness. Exam was performed in the presence of the ER nurse, Claudia. Current Patient Data Vital Signs Vital Signs Date Time Temp Pulse Resp B/P (MAP) Pulse Ox O2 Delivery O2 Flow Rate FiO2 05/12/18 03:00 86 14 96/61 (73) 98 Room Air 05/12/18 00:10 99.7 99.7 Lab Values Laboratory Tests Test 05/12/18 00:28 05/12/18 00:52 05/12/18 01:40 Urine Collection Type Unknown Urine Color Yellow Urine Clarity Clear Urine pH 7.5 Urine Specific [place] 1.025 Urine Protein Negative mg/dL (NEG-TRACE) Urine Glucose (UA) Negative mg/dL (NEG) Urine Ketones (Stick) Negative mg/dL (NEG) Urine Blood Small (NEG) Urine Nitrite Negative (NEG) Urine Bilirubin Negative (NEG) Urine Urobilinogen Dipstick 1.0 mg/dL (0.2 mg/dL) Urine Leukocyte Esterase Negative (NEG) Urine RBC 6-10 /HPF (0-2) Urine WBC Occ /HPF (0-4) Urine Squamous Epithelial Cells Many /LPF Urine Amorphous Sediment Present /HPF Urine Bacteria Few /HPF (0-FEW) Urine Mucus Mod /LPF POC Urine HCG, Qualitative Hcg negative (Negative) White Blood Count 8.2 x10^3/uL (4.0-11.0) Red Blood Count 4.18 x10^6/uL (3.50-5.40) Hemoglobin 13.6 g/dL (12.0-15.5) Hematocrit 39.3 % (36.0-47.0) Mean Corpuscular Volume 94 fL (79-100) Mean Corpuscular Hemoglobin 33 pg (25-35) Mean Corpuscular Hemoglobin Concent 35 g/dL (31-37) Red Cell Distribution Width 13.6 % (11.5-14.5) Platelet Count 258 x10^3/uL (140-400) Neutrophils (%) (Auto) 40 % (31-73) Lymphocytes (%) (Auto) 51 % (24-48) H Monocytes (%) (Auto) 7 % (0-9) Eosinophils (%) (Auto) 2 % (0-3) Basophils (%) (Auto) 1 % (0-3) Neutrophils # (Auto) 3.3 x10^3uL (1.8-7.7) Lymphocytes # (Auto) 4.1 x10^3/uL (1.0-4.8) Monocytes # (Auto) 0.6 x10^3/uL (0.0-1.1) Eosinophils # (Auto) 0.1 x10^3/uL (0.0-0.7) Basophils # (Auto) 0.1 x10^3/uL (0.0-0.2) Sodium Level 146 mmol/L (136-145) H Potassium Level 4.2 mmol/L (3.5-5.1) Chloride Level 106 mmol/L (98-107) Carbon Dioxide Level 30 mmol/L (21-32) Anion Gap 10 (6-14) Blood Urea Nitrogen 14 mg/dL (7-20) Creatinine 0.8 mg/dL (0.6-1.0) Estimated GFR (Cockcroft-Gault) 104.9 BUN/Creatinine Ratio 18 (6-20) Glucose Level 88 mg/dL (70-99) Lactic Acid Level 1.3 mmol/L (0.4-2.0) Calcium Level 9.2 mg/dL (8.5-10.1) Total Bilirubin 0.3 mg/dL (0.2-1.0) Aspartate Amino Transferase (AST) 16 U/L (15-37) Alanine Aminotransferase (ALT) 21 U/L (14-59) Alkaline Phosphatase 60 U/L (46-116) Total Protein 7.4 g/dL (6.4-8.2) Albumin 3.9 g/dL (3.4-5.0) Albumin/Globulin Ratio 1.1 (1.0-1.7) Lipase 265 U/L (73-393) Laboratory Tests 05/12/18 01:40 Laboratory Tests 05/12/18 01:40 Microbiology 05/12/18 Wet Prep - Final, Complete WET PREP Final YEAST NONE SEEN TRICHOMONAS NONE SEEN CLUE CELLS CLUE CELLS PRESENT WBCS MODERATE RBCS OCCASIONAL SQUAMOUS EPS FEW EKG EKG [] Radiology/Procedures Radiology/Procedures [ER physician preliminary acute abdominal x-ray interpretation: No acute abnormality] Course & Med Decision Making Course & Med Decision Making Pertinent Labs and Imaging studies reviewed. (See chart for details) [3:30 AM: The patient's condition remained stable. I had an extensive discussion with the patient about her test results, the need for close follow- up and return precautions. I offered the patient several different options for pain control, nonnarcotic, but she declined them all. She states she has ibuprofen at home. She states she hasn't been with her PCP on Tuesday, and I encouraged her to follow up with her traffic control supervisor and she states is Dr. Marie. ] Kelsea Disclaimer Kelsea Disclaimer This electronic medical record was generated, in whole or in part, using a voice recognition dictation system. Departure Departure Impression: Primary Impression: Chronic pelvic pain in female Additional Impression: BV (bacterial vaginosis) Disposition: HOME, SELF-CARE Condition: STABLE Referrals: PETER MARINO (PCP) Patient Instructions: Bacterial Vaginosis, Pelvic Pain, Female Scripts Metronidazole (FLAGYL) 500 Mg Tablet 1 TAB PO BID, #14 TAB Prov: KEM CHARLES MD 05/12/18 Problem Qualifiers KEM CHARLES MD May 12, 2018 01:32
[2018-05-12 01:37] LABS: BILIRUBIN,URINE NEGATIVE (NEG); CLARITY,URINE CLEAR; COLOR,URINE YELLOW; NITRITE,URINE NEGATIVE (NEG); PH,URINE 7.5; PROTEIN,URINE NEGATIVE (NEG-TRACE)
[2018-05-12 01:49] LABS: BACTERIA,URINE FEW /HPF (0-FEW); WBC,URINE OCC /HPF (0-4)
[2018-05-12 01:50] LABS: AMORPHOUS SEDIMENT,UR PRESENT /HPF; SQUAMOUS EPITHELIAL CELL,UR MANY /LPF
[2018-05-12] MEDS ORDERED: KETOROLAC 30 MG/ML VIAL. IV ONE (02:00)
[2018-05-12] MEDS ORDERED: IV NORMAL SALINE 1000ML BAG 1,000 ML IV SCH (02:00)
[2018-05-12 02:10] LABS: BASO # 0.1 x10^3/uL (0.0-0.2); BASO % 1 % (0-3); EOS # 0.1 x10^3/uL (0.0-0.7); EOS % 2 % (0-3); HEMATOCRIT 39.3 % (36.0-47.0); HEMOGLOBIN 13.6 g/dL (12.0-15.5); LYMPH # 4.1 x10^3/uL (1.0-4.8); LYMPH % 51 % (24-48); MEAN CORPUSCULAR HEMOGLOBIN 33 pg (25-35); MEAN CORPUSCULAR HGB CONC 35 g/dL (31-37); MEAN CORPUSCULAR VOLUME 94 fL (79-100); MONO # 0.6 x10^3/uL (0.0-1.1); MONO % 7 % (0-9); NEUT # 3.3 x10^3uL (1.8-7.7); NEUT % 40 % (31-73); PLATELET COUNT 258 x10^3/uL (140-400); RED BLOOD COUNT 4.18 x10^6/uL (3.50-5.40); RED CELL DISTRIBUTION WIDTH 13.6 % (11.5-14.5); WHITE BLOOD COUNT 8.2 x10^3/uL (4.0-11.0)
[2018-05-12 02:24] LABS: CALCIUM 9.2 mg/dL (8.5-10.1); CREATININE 0.8 mg/dL (0.6-1.0); GFR 104.9; POTASSIUM 4.2 mmol/L (3.5-5.1)
[2018-05-12 02:30] LABS: ALBUMIN 3.9 g/dL (3.4-5.0); ALBUMIN/GLOBULIN RATIO 1.1 (1.0-1.7); TOTAL BILIRUBIN 0.3 mg/dL (0.2-1.0); TOTAL PROTEIN 7.4 g/dL (6.4-8.2)
[2018-05-12 03:00] VITALS: BP 96/61
[2018-05-12] MEDS ORDERED: METR500T PO (03:29)
[2018-05-12] MEDS ORDERED: ACETAMINOPHEN 325 MG TABLET. PO ONE (04:15)
--- NOTE | 2018-05-12 09:36 | RAD ---
Acute abdomen series with chest, 3 views, 05/12/2018: HISTORY: Lower abdominal pain There is a moderate amount of stool and gas in the colon. No free air seen in the abdomen. There is no evidence organomegaly. Several artifacts overlie the midabdomen. There is a tiny radiopacity projected over the region of the right renal pelvis raising the possibility of a renal calculus. The heart size is normal. The lungs are clear. There is no evidence of pleural fluid. IMPRESSION: 1. Possible tiny right renal calculus. 2. No acute abdominal abnormality is detected. Electronically signed by: Shyam Lemon MD (05/12/2018 9:33 AM) [facility]
[2018-05-15 15:29] LABS: GC PROBE Negative (Negative)
== END 2018-05-12 03:15 | disposition home or self-care (01) ==
LOC: ER 23:56
DX: G89.29 Other chronic pain (principal); R10.2 Pelvic and perineal pain; N76.0 Acute vaginitis; B96.89 Other specified bacterial agents as the cause of diseases classified elsewhere; K58.9 Irritable bowel syndrome, unspecified; J45.909 Unspecified asthma, uncomplicated; N80.9 Endometriosis, unspecified; Z91.040 Latex allergy status
CPT/HCPCS: 74022; 80053; 81001; 81025; 83605; 83690; 85025; 96374; 99285; J1885; J7030; Q0111; 36415; 87491; 87591

== ENCOUNTER 2018-05-16 12:33 | Emergency (ER) | payer OTHER ==
[~2018-05-16] VITALS: Ht 152.4 cm; Wt 47.6 kg
[2018-05-16 13:12] VITALS: BP 139/77
--- NOTE | 2018-05-16 13:38 | PHYS DOC ---
Past Medical History Past Medical History: Anxiety, Asthma, Depression, Endometriosis, IBS, STD, Other Additional Past Medical Histor: ulcer, Chronic R leg pain, Chronic ABHD/Pelvic Pain, HPV Past Surgical History: Tonsillectomy, Other Additional Past Surgical Histo: L LEG FX, ENDOSCOPY,COLONOSCOPY, Laproscopic Alcohol Use: Occasionally Drug Use: None Adult General Chief Complaint Chief Complaint: OTHER COMPLAINTS HPI HPI 28-year-old female presents to ER for complaints of ongoing abdominal pain which she was evaluated in the ER on 05/12/18 for. Patient was diagnosed with bacterial vaginosis on that day and provided with prescription for Flagyl with instructions to follow-up with her primary care physician. Patient reports she has not scheduled an POST [facility]LE DIGGER appointment. Patient reports she does have appointment with her primary doctor scheduled Tuesday at 11 AM. Patient reports her symptoms are same as when she was evaluated in the ER on 05/12 she just feels her symptoms should be gone by now. Patient reports she is still taking Flagyl as prescribed and has 3 days left. She reports she continues to have low- grade fever and intermittent nausea. Patient reports she took ibuprofen 800 mg at 10:30 AM with minimal relief in symptoms. Patient reports she has been urinating more frequently as she has increased her water and Gatorade intake. Patient denies any increased vaginal discharge. Patient denies any sexual intercourse since diagnosis on 05/12. LMP 05/01/18. Review of Systems Review of Systems Constitutional: Denies temp. over 100.4 Eyes: Denies change in visual acuity, redness, or eye pain [] HENT: Denies nasal congestion or sore throat [] Respiratory: Denies cough or shortness of breath [] Cardiovascular: No additional information not addressed in HPI [] GI: Denies vomiting, bloody stools or diarrhea. Reports lower abd pain with intermittent nausea : Denies dysuria or hematuria. Denies incontinence. Denies increased vaginal discharge- reporting discharge isn't quite as yellow Musculoskeletal: Denies back pain or joint pain [] Integument: Denies rash, swelling, or skin lesions [] Neurologic: Denies headache, focal weakness or sensory changes [] All other systems were reviewed and found to be within normal limits, except as documented in this note. Allergies Allergies Allergies Coded Allergies Type Severity Reaction Last Updated Verified latex Allergy Severe Anaphylaxis 05/11/17 Yes Physical Exam Physical Exam Constitutional: Well developed, well nourished, no acute distress, non-toxic appearance. [] HENT: Normocephalic, atraumatic, oropharynx moist, nose normal. [] Eyes: pupils equal, conjunctiva normal, no discharge. [] Neck: Normal range of motion, no tenderness, supple, Cardiovascular:Heart rate regular rhythm, no murmur [] Lungs & Thorax: Bilateral breath sounds clear to auscultation. Resp. equal/ nonlabored Abdomen: Bowel sounds normal, soft/nondistended- no rigidity, diffuse tenderness in lower abd, no masses, no pulsatile masses. [] Skin: Warm, dry, no erythema, no rash. [] Back: No tenderness, no CVA tenderness. [] Extremities: No tenderness, no cyanosis, no clubbing, ROM intact, no edema. [] Neurologic: Alert and oriented X 3, normal motor function, normal sensory function, no focal deficits noted. [] Psychologic: Affect normal, judgement normal, mood normal. [] Current Patient Data Lab Values Laboratory Tests Test 05/16/18 13:24 POC Urine HCG, Qualitative Hcg negative (Negative) EKG EKG [] Radiology/Procedures Radiology/Procedures [] Course & Med Decision Making Course & Med Decision Making In-depth conversation had with patient regarding symptoms being similar to ER visit on 05/12/18. Patient still has 3 days left of her Flagyl prescription so she was encouraged to complete that prescription and then as discussed follow- up with her primary care physician on Tuesday. Pt requested admission for further care/pain control- discussed with NL labs on 05/12 and similar sxs at that time no admission needed and outpt tx with current antibiotics appropr. care with f/u as advised with POST HOLE DIGGER. Patient reports she has a scheduled appointment on Tuesday at [address] Marino. Pt reports she had taken Ibuprofen 800mg at 10:30 a.m. this morning and so she was offered dose of tylenol- pt reports she would take her tylenol at home. With pt having labs on 05/12 NL and neg. Chlam/Gonorrhea which was discussed- pt will be discharged home with plans for to seek further care outpt with her PCP and POST HOLE DIGGER Dr. Marie- who she hasn't scheduled appt with. Pt is nontoxic in appearance and in no visible distress during discussion. Discharge instructions were discussed and education provided on signs and symptoms are her to return to ER for. RN reported patient left prior to receiving her discharge paperwork or vital sign recheck. Kelsea Disclaimer Kelsea Disclaimer This electronic medical record was generated, in whole or in part, using a voice recognition dictation system. Departure Departure Impression: Primary Impression: Abdominal pain Disposition: HOME, SELF-CARE Condition: STABLE Referrals: PETER MARINO (PCP) Patient Instructions: Abdominal Pain Additional Instructions: As discussed you should complete all of the Flagyl prescription which was provided during year previous emergency department visit. You should keep your scheduled appointment on Tuesday with your primary care physician for reevaluation and further care. As discussed you should follow-up with your OB/ [facility] for reevaluation and further care also. Continue [id number] ibuprofen as directed on container and you can take Tylenol also as directed on container for pain control. Plenty of fluids and you can take phdl-[id number] probiotics as directed on container. Avoid sexual intercourse or insertion of anything vaginal until you have reevaluation to ensure infection is completely treated. ELI SAMUELS APRN May 16, 2018 13:38
== END 2018-05-16 13:31 | disposition home or self-care (01) ==
LOC: ER 12:33
DX: R10.30 Lower abdominal pain, unspecified (principal); R50.9 Fever, unspecified; K58.9 Irritable bowel syndrome, unspecified; J45.909 Unspecified asthma, uncomplicated; G89.29 Other chronic pain; Z91.040 Latex allergy status
CPT/HCPCS: 81025; 99283

== ENCOUNTER 2018-05-21 14:54 | Emergency (ER) | payer OTHER ==
[~2018-05-21] VITALS: Ht 152.4 cm; Wt 45.4 kg
[2018-05-21 15:00] VITALS: BP 153/69
--- NOTE | 2018-05-21 15:17 | PHYS DOC ---
Past Medical History Past Medical History: Anxiety, Asthma, Depression, Endometriosis, IBS, STD, Other Additional Past Medical Histor: ulcer, Chronic R leg pain, Chronic ABHD/Pelvic Pain, HPV Past Surgical History: Tonsillectomy, Other Additional Past Surgical Histo: L LEG FX, ENDOSCOPY,COLONOSCOPY, Laproscopic Alcohol Use: Occasionally Drug Use: None Adult General Chief Complaint Chief Complaint: ABDOMINAL PAIN HPI HPI Patient is a 28 year old female presented to ER today for evaluation of her chronic pelvic pain. Patient had been evaluated here numerous timeS for the same problem, workup including CT scan OF ABDOMEN AND PELVIC and ultrasound the PELVIC did not reveal any acute problem. Patient was seen here about 8 times last month for the same problem. Patient always asked for narcotic for pain control. She wanted to have a hysterectomy. She was told to follow with C[facility]ER if she wanted to have hysterectomy done. Review of Systems Review of Systems Constitutional: Denies fever or chills [] Eyes: Denies change in visual acuity, redness, or eye pain [] HENT: Denies nasal congestion or sore throat [] Respiratory: Denies cough or shortness of breath [] Cardiovascular: No additional information not addressed in HPI [] GI: Denies abdominal pain, nausea, vomiting, bloody stools or diarrhea [] : Positive for pelvic pain, no vaginal bleeding or discharge. Musculoskeletal: Denies back pain or joint pain [] Integument: Denies rash or skin lesions [] Neurologic: Denies headache, focal weakness or sensory changes [] Endocrine: Denies polyuria or polydipsia psych: POSITIVE FOR DEPRESSION, DENIED SUICIDAL IDEATION OR HOMICIDAL IDEATION. All other systems were reviewed and found to be within normal limits, except as documented in this note. Current Medications Current Medications Current Medications Medications (Trade) Dose Ordered Sig/Luis Start Time Stop Time Status Last Admin Dose Admin Ketorolac Tromethamine (Toradol Im) 60 mg 1X ONCE 05/21/18 17:15 05/21/18 17:16 DC Allergies Allergies Allergies Coded Allergies Type Severity Reaction Last Updated Verified latex Allergy Severe Anaphylaxis 05/11/17 Yes Physical Exam Physical Exam Constitutional: Well developed, well nourished, no acute distress, non-toxic appearance. [] HENT: Normocephalic, atraumatic, bilateral external ears normal, oropharynx moist, no oral exudates, nose normal. [] Eyes: PERRLA, EOMI, conjunctiva normal, no discharge. [] Neck: Normal range of motion, no tenderness, supple, no stridor. [] Cardiovascular:Heart rate regular rhythm, no murmur [] Lungs & Thorax: Bilateral breath sounds clear to auscultation [] Abdomen: Bowel sounds normal, soft, Tender in suprapubic area. Skin: Warm, dry, no erythema, no rash. [] Back: No tenderness, no CVA tenderness. [] Extremities: No tenderness, no cyanosis, no clubbing, ROM intact, no edema. [] Neurologic: Alert and oriented X 3, normal motor function, normal sensory function, no focal deficits noted. [] Psychologic: Affect normal, judgement normal, Patient was tearful due to HER CHRONIC SITUATION. PATIENT SAID SHE IS NOT SUICIDAL BUT DOES NOT WANT TO HAVE A LIFE DEALING WITH CHRONIC PELVIC PAIN. PATIENT DENIED SUICIDAL IDEATION, SAID SHE IS NOT GOING TO KILL HERSELF. Current Patient Data Vital Signs Vital Signs Date Time Temp Pulse Resp B/P (MAP) Pulse Ox O2 Delivery O2 Flow Rate FiO2 05/21/18 15:00 99.5 110 20 153/69 (97) 98 Room Air 99.5 EKG EKG [] Radiology/Procedures Radiology/Procedures [] Course & Med Decision Making Course & Med Decision Making Pertinent Labs and Imaging studies reviewed. (See chart for details) Patient was told by this physician that we will not provide her narcotic for chronic pain problem. And chronic pelvic pain is not an indication for hospital admission. And an C[facility] ASSEMBLER doctor will not respond to ER for chronic pelvic pain. She says she is tired of dealing with her chronic pelvic pain. She again says she is not suicidal, she does not want to kill herself. Dragon Disclaimer Dragon Disclaimer This electronic medical record was generated, in whole or in part, using a voice recognition dictation system. Departure Departure Impression: Primary Impression: Chronic pelvic pain in female Disposition: 01 HOME, SELF-CARE Condition: STABLE Referrals: PETER MARINO (PCP) Patient Instructions: Chronic Pain, Chronic Pain Management ANNETTE GROVER DO May 21, 2018 15:17
[2018-05-21] MEDS ORDERED: KETOROLAC 60 MG/2 ML INJ. IM ONE (17:15)
== END 2018-05-21 18:05 | disposition home or self-care (01) ==
LOC: ER 14:54
DX: G89.29 Other chronic pain (principal); R10.2 Pelvic and perineal pain; F41.9 Anxiety disorder, unspecified; F32.9 Major depressive disorder, single episode, unspecified; J45.909 Unspecified asthma, uncomplicated; Z90.89 Acquired absence of other organs; Z91.040 Latex allergy status
CPT/HCPCS: 99281

== ENCOUNTER 2018-05-31 14:28 | Emergency (ER) | payer OTHER ==
[~2018-05-31] VITALS: Ht 152.4 cm; Wt 45.4 kg
[2018-05-31 14:42] VITALS: BP 145/68
[2018-05-31 15:27] LABS: BILIRUBIN,URINE NEGATIVE (NEG); CLARITY,URINE CLOUDY; COLOR,URINE YELLOW; NITRITE,URINE NEGATIVE (NEG); PROTEIN,URINE NEGATIVE (NEG-TRACE)
[2018-05-31 15:38] LABS: BACTERIA,URINE MOD /HPF (0-FEW); RBC,URINE 20-40 /HPF (0-2); SQUAMOUS EPITHELIAL CELL,UR MANY /LPF
--- NOTE | 2018-05-31 16:03 | PHYS DOC ---
Past Medical History Past Medical History: Anxiety, Asthma, Depression, Endometriosis, IBS, STD, Other Additional Past Medical Histor: ulcer, Chronic R leg pain, Chronic ABHD/Pelvic Pain, HPV Past Surgical History: Tonsillectomy, Other Additional Past Surgical Histo: L LEG FX, ENDOSCOPY,COLONOSCOPY, Laproscopic Alcohol Use: Occasionally Drug Use: None Adult General Chief Complaint Chief Complaint: PELVIC PAIN [facility] HPI Patient is a 28 year old female who presents with chronic pelvic pain. Patient is well-known to this department. She presents today with her typical complaint of pelvic pain which has been chronic. The patient has undergone prior laparoscopic examination of her complaint which, according to the patient , yielded a diagnosis of stage for endometriosis. Patient states she is scheduled for hysterectomy next month. She also has a pending appointment with a pain management doctor in [place]. Today, no fever or chills. No urinary symptoms. No nausea or vomiting. Her only complaint is pelvic pain. She is currently on her menstrual cycle. Review of Systems Review of Systems Constitutional: Denies fever Eyes: Denies change in visual acuity HENT: Denies nasal congestion Respiratory: Denies cough or shortness of breath Cardiovascular: No additional information not addressed in HPI GI: Denies abdominal pain, nausea : Denies dysuria Musculoskeletal: Denies back pain Integument: Denies rash or skin lesions Neurologic: Denies headache Endocrine: Denies polyuria All other systems were reviewed and found to be within normal limits, except as documented in this note. Allergies Allergies Allergies Coded Allergies Type Severity Reaction Last Updated Verified latex Allergy Severe Anaphylaxis 05/11/17 Yes Physical Exam Physical Exam Constitutional: Well developed, well nourished, no acute distress, non-toxic appearance HENT: Normocephalic, atraumatic, bilateral external ears normal Neck: Normal range of motion Cardiovascular:Heart rate regular rhythm Lungs & Thorax: Bilateral breath sounds clear Skin: Warm, dry, no erythema Back: No tenderness, no CVA tenderness Neurologic: Alert and oriented X 3 Psychologic: Affect normal Current Patient Data Vital Signs Vital Signs Date Time Temp Pulse Resp B/P (MAP) Pulse Ox O2 Delivery O2 Flow Rate FiO2 05/31/18 14:42 99.0 93 16 145/68 (93) 99 Room Air 99.0 Lab Values Laboratory Tests Test 05/31/18 15:00 Urine Collection Type Unknown Urine Color Yellow Urine Clarity Cloudy Urine pH 7.0 Urine Specific [place] 1.025 Urine Protein Negative mg/dL (NEG-TRACE) Urine Glucose (UA) Negative mg/dL (NEG) Urine Ketones (Stick) Negative mg/dL (NEG) Urine Blood Large (NEG) Urine Nitrite Negative (NEG) Urine Bilirubin Negative (NEG) Urine Urobilinogen Dipstick 1.0 mg/dL (0.2 mg/dL) Urine Leukocyte Esterase Moderate (NEG) Urine RBC 20-40 /HPF (0-2) Urine WBC 11-20 /HPF (0-4) Urine Squamous Epithelial Cells Many /LPF Urine Bacteria Mod /HPF (0-FEW) Urine Mucus Mod /LPF EKG EKG [] Radiology/Procedures Radiology/Procedures [] Course & Med Decision Making Course & Med Decision Making Pertinent Labs and Imaging studies reviewed. (See chart for details) Patient is evaluated in the ER. She is requesting pain medications. She states she has been taking motrin 800 tid and naproxen 500 bid with no relief of her pain symptoms. Today, her physical examination, including firm palpation over the pelvic area of her abdomen, is benign. I did advise her to use caution when taking so many NSAID medications. I advised her to use either ibuprofen or Naprosyn but not both and to take with food. I also informed the patient that I would not give her any opiate pain medications either during this visit or any point in the future unless there is a new complaint or new acute cause for her to be having pain. Upon hearing this, the patient promptly left the department prior to receiving discharge instructions. Dragon Disclaimer Dragon Disclaimer This electronic medical record was generated, in whole or in part, using a voice recognition dictation system. Departure Departure Impression: Primary Impression: Pelvic pain Disposition: 01 HOME, SELF-CARE Condition: GOOD Referrals: PETER MARINO (PCP) Patient Instructions: Pelvic Pain, Female, [id number], Endometriosis ELLIE RODRIGUEZ DO May 31, 2018 16:03
== END 2018-05-31 16:01 | disposition home or self-care (01) ==
LOC: ER 14:28
DX: G89.29 Other chronic pain (principal); R10.2 Pelvic and perineal pain; F41.9 Anxiety disorder, unspecified; J45.909 Unspecified asthma, uncomplicated; K58.9 Irritable bowel syndrome, unspecified; M79.604 Pain in right leg; Z91.040 Latex allergy status
CPT/HCPCS: 81001; 99283

== ENCOUNTER 2018-08-01 20:00 | Emergency (ER) | payer MEDICAID ==
[~2018-08-01] VITALS: Ht 152.4 cm; Wt 52.2 kg
[~2018-08-01 20:00] MED LIST changes: +ALBU2.5V8 INH; -HYDR-2758 PO; +HYDR-2761 PO; +HYDR-3164 PO; -HYDR-971 PO; -OXYC-323 PO; -OXYC-327 PO; -OXYC-328 PO; -OXYC10TA45 PO; +OXYC10TA46 PO; +OXYC1TAB15 PO; +OXYC1TAB19 PO; +OXYC1TAB22 PO; -PROAIR HFA8.5 GM INH
[2018-08-01 20:29] VITALS: BP 135/84
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
== END 2018-08-01 21:25 | disposition home or self-care (01) ==
LOC: ER 20:00
DX: G89.29 Other chronic pain (principal); R10.2 Pelvic and perineal pain; F32.9 Major depressive disorder, single episode, unspecified; J45.909 Unspecified asthma, uncomplicated; Z90.89 Acquired absence of other organs; Z91.040 Latex allergy status; V49.59XA Passenger injured in collision with other motor vehicles in traffic accident, initial encounter; Y93.89 Activity, other specified; Y92.410 Unspecified street and highway as the place of occurrence of the external cause; Y99.8 Other external cause status
CPT/HCPCS: 72100; 73521; 81025; 99283

== ENCOUNTER 2018-09-20 08:34 | Emergency (ER) | payer MEDICAID, OTHER ==
[~2018-09-20] VITALS: Ht 152.4 cm; Wt 52.2 kg
[~2018-09-20 08:34] MED LIST changes: -PROM12.56 PO; +PROM12.58 PO
[2018-09-20 08:47] VITALS: BP 161/90
[2018-09-20] MEDS ORDERED: HYDR-2761 PO (09:14)
--- NOTE | 2018-09-20 09:15 | PHYS DOC ---
Past Medical History Past Medical History: Anxiety, Asthma, Depression, Endometriosis, IBS, STD, Other Additional Past Medical Histor: ulcer, Chronic R leg pain, Chronic ABD/Pelvic Pain, HPV Past Surgical History: Tonsillectomy, Other Additional Past Surgical Histo: L LEG FX, ENDOSCOPY,COLONOSCOPY, Laproscopic Alcohol Use: Occasionally Drug Use: None Adult General Chief Complaint Chief Complaint: PELVIC PAIN HPI HPI Patient is a 28 year old AA female who presents to the ER with complaints of chronic pelvic pain. Pt states she has had to stop all NSAIDS since she is scheduled to have a hysterectomy on 09/28/17. She denies any changes in her chronic pain. She denies any dysuria, increased frequency, hematuria, urgency, or irregular vaginal discharge. PT states she is here for pain medication, she currently rates the pain a 10/10. Pt states that she called the OB who is performing her surgery this morning and was encouraged to go to the ER for pain control as the doctor was unavailable. Pt has tried heating pads and lidocaine patches with no relief of her pain. Review of Systems Review of Systems Constitutional: Denies fever or chills [] GI: Denies nausea, vomiting, or diarrhea; see HPI : Denies dysuria or hematuria; See HPI[] Musculoskeletal: Denies back pain or joint pain [] Integument: Denies rash or skin lesions [] Neurologic: Denies headache, focal weakness or sensory changes [] All other systems were reviewed and found to be within normal limits, except as documented in this note. Allergies Allergies Allergies Coded Allergies Type Severity Reaction Last Updated Verified latex Allergy Severe Anaphylaxis 05/11/17 Yes Physical Exam Physical Exam Constitutional: Well developed, well nourished, no acute distress, non-toxic appearance. [] HENT: Normocephalic, atraumatic, bilateral external ears normal, nose normal. [] Eyes: PERRLA, conjunctiva normal, no discharge. [] Neck: Normal range of motion, no stridor. [] Cardiovascular:Heart rate regular rhythm, no murmur [] Lungs & Thorax: Bilateral breath sounds clear to auscultation [] Abdomen: Bowel sounds normal, soft, no masses, no pulsatile masses. [] Skin: Warm, dry, no erythema, no rash. [] Extremities: No cyanosis, no clubbing, ROM intact, no edema. [] Neurologic: Alert and oriented X 3, normal motor function, normal sensory function, no focal deficits noted. [] Psychologic: Affect normal, judgement normal, mood normal. [] Current Patient Data Vital Signs Vital Signs Date Time Temp Pulse Resp B/P (MAP) Pulse Ox O2 Delivery O2 Flow Rate FiO2 09/20/18 08:47 98.8 82 16 161/90 (113) 98 Room Air 98.8 EKG EKG [] Radiology/Procedures Radiology/Procedures [] Course & Med Decision Making Course & Med Decision Making Pertinent Labs and Imaging studies reviewed. (See chart for details) Dx: chronic pelvic pain Pt was given a prescription for hydrocodone 5/325 mg tabs #10. Physical exam is not concerning for appendicitis, diverticulitis, UTI, ovarian torsion, or STI. Pt was encouraged to call OB for further pain control prior to procedure scheduled for 09/28/18. Patient verbalized an understanding of home care, medications, follow-up, and return to ED instructions and was in agreement with the plan of care. [] Dragon Disclaimer Dragon Disclaimer This electronic medical record was generated, in whole or in part, using a voice recognition dictation system. Departure Departure Impression: Primary Impression: Chronic pelvic pain in female Disposition: 01 HOME, SELF-CARE Condition: STABLE Referrals: UNKNOWN PCP NAME (PCP) Patient Instructions: Chronic Pain Management-Brief Additional Instructions: Fill the prescription and use as directed. Follow up with your OBGyn for further management of your chronic pain. Return to the ER if symptoms worsen. Scripts Hydrocodone Bit/Acetaminophen (HYDROCODONE-APAP 5-325 ) 1 Tab Tablet 1 TAB PO PRN Q6HRS PRN for PAIN for 3 Days, #10 TAB 0 Refills Prov: KERMIT DIAS APRN 09/20/18 KERMIT DIAS FOOD SERVICE CLERK Sep 20, 2018 09:15
== END 2018-09-20 09:31 | disposition home or self-care (01) ==
LOC: ER 08:34
DX: G89.29 Other chronic pain (principal); R10.2 Pelvic and perineal pain; J45.909 Unspecified asthma, uncomplicated; K58.9 Irritable bowel syndrome, unspecified; Z91.040 Latex allergy status
CPT/HCPCS: 99283

== ENCOUNTER 2018-11-08 12:35 | Emergency (ER) | payer OTHER ==
[~2018-11-08] VITALS: Ht 152.4 cm; Wt 65.8 kg
[2018-11-08 13:02] VITALS: BP 148/67
== END 2018-11-08 14:00 | disposition left against medical advice (07) ==
LOC: ER 12:35
DX: G89.29 Other chronic pain (principal)

== ENCOUNTER 2018-11-22 15:51 | Emergency (ER) | payer OTHER ==
[~2018-11-22] VITALS: Ht 154.9 cm; Wt 65.8 kg
[2018-11-22 15:58] VITALS: BP 139/84
[2018-11-22] MEDS ORDERED: ONDA4TAB12 PO (16:10)
--- NOTE | 2018-11-22 16:12 | PHYS DOC ---
Past Medical History Past Medical History: Anxiety, Asthma, Depression, Endometriosis, IBS, STD, Other Additional Past Medical Histor: ulcer, Chronic R leg pain, Chronic ABD/Pelvic Pain, HPV Past Surgical History: Hysterectomy, Tonsillectomy, Other Additional Past Surgical Histo: L LEG FX, ENDOSCOPY,COLONOSCOPY, Laproscopic 03/22/18 Smoking: Cigarettes, 1 Pack Per Day Alcohol Use: Occasionally Drug Use: None Adult General Chief Complaint Chief Complaint: MEDICATION REFILL [facility] HPI Patient is a 28-year-old female who presents for medication refill. Patient states that she was seen recently at urgent care was prescribed Phenergan with codeine. She states that she is allergic to Phenergan and codeine and would like her prescription changed. She states that she is in 10 out of 10 pain from a hysterectomy that occurred on September 28. She is also nauseous. Patient when questioned about her pain and nausea states that nothing is changed since the hysterectomy on September 28 and she's been worked up multiple times. Also states that she has an appointment with her ENVIRONMENTAL MONITORING SPECIALIST and her primary care doctor on Tuesday. Patient has had over 50 prescribers over the last 2 years prescribe her benzos or narcotics. Patient last had a narcotic prescription filled on November 08. Was also giving 100 oxycodone on October 09, and 55 oxycodone on October 02. She is also had 5 other narcotic prescriptions since that time. Review of Systems Review of Systems Constitutional: Denies fever or chills [] Eyes: Denies change in visual acuity, redness, or eye pain [] HENT: Denies nasal congestion or sore throat [] Respiratory: Reports cough but denies shortness of breath [] Cardiovascular: No additional information not addressed in HPI [] GI: Reprots abdominal pain and nausea denies vomiting, bloody stools or diarrhea [] : Denies dysuria or hematuria [] Musculoskeletal: Denies back pain or joint pain [] Integument: Denies rash or skin lesions [] Neurologic: Denies headache, focal weakness or sensory changes [] Endocrine: Denies polyuria or polydipsia [] Complete systems were reviewed and found to be within normal limits, except as documented in this note. Allergies Allergies Allergies Coded Allergies Type Severity Reaction Last Updated Verified latex Allergy Severe Anaphylaxis 05/11/17 Yes ketorolac Allergy Intermediate 09/20/18 Yes Physical Exam Physical Exam Constitutional: Well developed, well nourished, no acute distress, non-toxic appearance. [] HENT: Normocephalic, atraumatic, bilateral external ears normal, oropharynx moist, no oral exudates, nose normal. [] Eyes: PERRLA, EOMI, conjunctiva normal, no discharge. [] Neck: Normal range of motion, no tenderness, supple, no stridor. [] Cardiovascular:Heart rate regular rhythm, no murmur [] Lungs & Thorax: Bilateral breath sounds clear to auscultation [] Abdomen: Soft, diffuse tenderness, no masses, no pulsatile masses. [] Skin: Warm, dry, no erythema, no rash. [] Back: No tenderness, no CVA tenderness. [] Extremities: No tenderness, no cyanosis, no clubbing, ROM intact, no edema. [] Neurologic: Alert and oriented X 3, normal motor function, normal sensory function, no focal deficits noted. [] Psychologic: Affect normal, judgement normal, mood normal. [] EKG EKG [] Radiology/Procedures Radiology/Procedures [] Course & Med Decision Making Course & Med Decision Making Pertinent Labs and Imaging studies reviewed. (See chart for details) Discussed symptoms with patient. Due to [facility]s history discussed how I will not give her any narcotics. I was willing to give her zofran for nausea. I discussed how she needs to follow up with her PCP and ENVIRONMENTAL MONITORING SPECIALIST. Patient has had multiple workups for the abdominal pain and is currently taking Doxycycline. Declines further workup. Dragon Disclaimer Dragon Disclaimer This electronic medical record was generated, in whole or in part, using a voice recognition dictation system. Departure Departure Impression: Primary Impression: Medication refill Disposition: HOME, SELF-CARE Condition: STABLE Referrals: UNKNOWN PCP NAME (PCP) Patient Instructions: Medication Refill, Emergency Department Additional Instructions: Please follow up with your primary care physician and ENVIRONMENTAL MONITORING SPECIALIST as scheduled on Tuesday. If you need narcotic refills please go through your primary care doctor. Scripts Ondansetron (ONDANSETRON ODT) 4 Mg Tab.rapdis 1 TAB PO PRN Q6-8HRS PRN for NAUSEA, #16 TAB Prov: MENDY DEAL APRN 11/22/18 MENDY DEAL APRN November 22, 2018 16:12
== END 2018-11-22 16:11 | disposition home or self-care (01) ==
LOC: ER 15:51
DX: G89.18 Other acute postprocedural pain (principal); Z76.0 Encounter for issue of repeat prescription; R10.9 Unspecified abdominal pain; R11.0 Nausea; Z90.710 Acquired absence of both cervix and uterus; J45.909 Unspecified asthma, uncomplicated; G89.29 Other chronic pain; K58.9 Irritable bowel syndrome, unspecified; F17.210 Nicotine dependence, cigarettes, uncomplicated; Z91.040 Latex allergy status; Z88.6 Allergy status to analgesic agent
CPT/HCPCS: 99283

== ENCOUNTER 2019-03-02 15:31 | Emergency (ER) | payer MEDICAID ==
[~2019-03-02] VITALS: Ht 152.4 cm; Wt 59.0 kg
[~2019-03-02 15:31] MED LIST changes: +ONDA4TAB12 PO; -PANT40TA5 PO; +PANT40TA77 PO
--- NOTE | 2019-03-02 16:18 | PHYS DOC ---
Past Medical History Past Medical History: Anxiety, Asthma, Depression, Endometriosis, IBS, STD, Other Additional Past Medical Histor: ulcer, Chronic R leg pain, Chronic ABD/Pelvic Pain, HPV Past Surgical History: Hysterectomy, Tonsillectomy, Other Additional Past Surgical Histo: L LEG FX, ENDOSCOPY,COLONOSCOPY, Laproscopic 03/22/18 Alcohol Use: Occasionally Drug Use: None Adult General Chief Complaint Chief Complaint: VAGINAL PROBLEM HPI HPI Patient is a 28 year old female well known to this ED for pelvic pain who presents to the ED today complaining of severe onset of pelvic pain that began after having intercourse at 9 AM. Patient states she had a partial hysterectomy 5 months ago and she believes she "busted her cuff". Denies any concerns for STDs. Denies any unusual vaginal discharge. Review of Systems Review of Systems Constitutional: Denies fever or chills [] Eyes: Denies change in visual acuity, redness, or eye pain [] HENT: Denies nasal congestion or sore throat [] Respiratory: Denies cough or shortness of breath [] Cardiovascular: No additional information not addressed in HPI [] GI: Reports of the onset of pelvic pain, denies nausea, vomiting, bloody stools or diarrhea [] : Denies dysuria or hematuria [] Musculoskeletal: Denies back pain or joint pain [] Integument: Denies rash or skin lesions [] Neurologic: Denies headache, focal weakness or sensory changes [] All other systems were reviewed and found to be within normal limits, except as documented in this note. Allergies Allergies Allergies Coded Allergies Type Severity Reaction Last Updated Verified latex Allergy Severe Anaphylaxis 05/11/17 Yes ibuprofen Allergy Intermediate STOMACH PAIN AND VOMITING 01/06/19 Yes ketorolac Allergy Intermediate 09/20/18 Yes Physical Exam Physical Exam Constitutional: Well developed, well nourished, no acute distress, non-toxic appearance. [] HENT: Normocephalic, atraumatic, bilateral external ears normal, oropharynx moist, no oral exudates, nose normal. [] Eyes: PERRLA, EOMI, conjunctiva normal, no discharge. [] Neck: Normal range of motion, no tenderness, supple, no stridor. [] Cardiovascular:Heart rate regular rhythm, no murmur [] Lungs & Thorax: Bilateral breath sounds clear to auscultation [] Abdomen: Bowel sounds normal, soft, no masses, no pulsatile masses. [] Pelvic exam External pelvic-normal, cervix is not visualized, diffuse tenderness throughout the pelvic region including some cervical motion tenderness the patient is denying any concerns for STD Skin: Warm, dry, no erythema, no rash. [] Back: No tenderness, no CVA tenderness. [] Extremities: No tenderness, no cyanosis, no clubbing, ROM intact, no edema. [] Neurologic: Alert and oriented X 3, normal motor function, normal sensory function, no focal deficits noted. [] Psychologic: Affect normal, judgement normal, mood normal. [] Current Patient Data Vital Signs Vital Signs Date Time Temp Pulse Resp B/P (MAP) Pulse Ox O2 Delivery O2 Flow Rate FiO2 03/02/19 16:21 99.4 83 16 112/77 (89) 100 Room Air 99.4 Lab Values Laboratory Tests Test 03/02/19 16:16 Urine Collection Type Unknown Urine Color Yellow Urine Clarity Clear Urine pH 6.0 Urine Specific [place] 1.015 Urine Protein Negative mg/dL (NEG-TRACE) Urine Glucose (UA) Negative mg/dL (NEG) Urine Ketones (Stick) Negative mg/dL (NEG) Urine Blood Negative (NEG) Urine Nitrite Negative (NEG) Urine Bilirubin Negative (NEG) Urine Urobilinogen Dipstick 0.2 mg/dL (0.2 mg/dL) Urine Leukocyte Esterase Negative (NEG) Urine RBC 0 /HPF (0-2) Urine WBC 0 /HPF (0-4) Urine Squamous Epithelial Cells Few /LPF Urine Bacteria 0 /HPF (0-FEW) Urine Mucus Slight /LPF EKG EKG [] Radiology/Procedures Radiology/Procedures []PROCEDURE: PELVIS COMPLETE Examination: Ultrasound pelvis HISTORY: History of pain after intercourse, prior histories of vaginal cuff perforation. COMPARISON: 02/14/2018. FINDINGS: The vaginal cuff is not clearly visualized on this examination. The right and left ovaries are not visualized due to bowel gas. IMPRESSION: Limited examination due to nonvisualization of the vaginal cuff region and the ovaries. Recommend CT for further evaluation. Electronically signed by: Price Escobar MD (03/02/2019 4:42 PM) [id number] DICTATED and SIGNED BY: PRICE ESCOBAR MD DATE: 03/02/19 1642 Course & Med Decision Making Course & Med Decision Making Pertinent Labs and Imaging studies reviewed. (See chart for details) This is a 28-year-old female patient with history of pelvic pain well known to this ED for drug seeking behavior presented today for pelvic pain after having intercourse at 9 AM. Patient states she had a hysterectomy 5 months ago. Patient is concerned she could have "busted her cuff". Pelvic ultrasound was done which could not find vaginal cuff, radiologist recommended CAT scan. Informed patient i ordered a CAT scan. She asked if she can have anything for pain, informed patient that can give nonnarcotic pain medicine including Tylenol or Toradol, she refused. She stated she does not want to wait anymore. She states she will follow-up with her own [employer]OUD [employer]OMATION TESTER at [facility] or she might go to [facility] sometime this evening. Dragon Disclaimer Dragon Disclaimer This electronic medical record was generated, in whole or in part, using a voice recognition dictation system. Departure Departure Impression: Primary Impression: Pelvic pain Disposition: 01 HOME, SELF-CARE Condition: STABLE Referrals: GRADY CHARLES MD (PCP) follow up with your OBGYN as soon as you can Patient Instructions: Pelvic Pain, Female, [id number] Additional Instructions: Please follow up with your OBGYN as soon as you can MAX BOO APRN Mar 02, 2019 16:18
[2019-03-02 16:21] VITALS: BP 112/77
--- NOTE | 2019-03-02 16:45 | RAD ---
Examination: Ultrasound pelvis HISTORY: History of pain after intercourse, prior histories of vaginal cuff perforation. COMPARISON: 02/14/2018. FINDINGS: The vaginal cuff is not clearly visualized on this examination. The right and left ovaries are not visualized due to bowel gas. IMPRESSION: Limited examination due to nonvisualization of the vaginal cuff region and the ovaries. Recommend CT for further evaluation. Electronically signed by: Price Escobar MD (03/02/2019 4:42 PM) [id number]
[2019-03-02 16:47] LABS: BILIRUBIN,URINE NEGATIVE (NEG); CLARITY,URINE CLEAR; COLOR,URINE YELLOW; NITRITE,URINE NEGATIVE (NEG); PROTEIN,URINE NEGATIVE (NEG-TRACE); UROBILINOGEN,URINE 0.2 mg/dL (0.2 mg/dL)
[2019-03-02 17:03] LABS: BACTERIA,URINE 0 /HPF (0-FEW); RBC,URINE 0 /HPF (0-2); SQUAMOUS EPITHELIAL CELL,UR FEW /LPF; WBC,URINE 0 /HPF (0-4)
[2019-03-05 18:11] LABS: GC PROBE Negative (Negative)
== END 2019-03-02 17:35 | disposition home or self-care (01) ==
LOC: ER 15:31
DX: R10.2 Pelvic and perineal pain (principal); J45.909 Unspecified asthma, uncomplicated; K58.9 Irritable bowel syndrome, unspecified; G89.29 Other chronic pain; Z90.711 Acquired absence of uterus with remaining cervical stump; Z91.040 Latex allergy status; Z88.6 Allergy status to analgesic agent; Z88.8 Allergy status to other drugs, medicaments and biological substances
CPT/HCPCS: 76856; 81001; 87491; 87591; 99285; Q0111

== ENCOUNTER 2019-08-05 19:31 | Emergency (ER) | payer MEDICAID | END 2019-08-05 19:55 | disposition left against medical advice (07) | LOC: ER 19:31 | DX: R10.9 Unspecified abdominal pain (principal); R11.10 Vomiting, unspecified; G89.11 Acute pain due to trauma; Z53.21 Procedure and treatment not carried out due to patient leaving prior to being seen by health care provider; Y08.89XA Assault by other specified means, initial encounter; Y93.89 Activity, other specified; Y92.89 Other specified places as the place of occurrence of the external cause; Y99.8 Other external cause status ==

== ENCOUNTER 2019-08-13 16:11 | Emergency (ER) | payer MEDICAID ==
[~2019-08-13] VITALS: Ht 152.4 cm; Wt 59.0 kg
[2019-08-13 17:15] VITALS: BP 122/74
[2019-08-13] MEDS ORDERED: LIDO:MAALOX 1:1 20 ML SINGLE DOSE. SWSW ONE (18:00)
[2019-08-13] MEDS ORDERED: HYDROcodone/APAP 5/325MG 1 TAB TABLET PO ONE (18:45)
--- NOTE | 2019-08-13 18:51 | RAD ---
Examination: Ultrasound abdomen limited HISTORY: History of epigastric abdominal pain COMPARISON: 11/14/2017. FINDINGS: Visualized pancreas grossly appears unremarkable. The echogenicity liver grossly appears unremarkable. The right lobe of the liver measures 14.5 cm. No evidence of gallstones. The gallbladder wall thickness measures 2.1 mm. The common bile duct measures 3.7 mm in diameter. The visualized IVC grossly appears unremarkable. The right kidney measures 11.7 x 3.6 x 3.5 cm. IMPRESSION: Unremarkable visualized exam. Electronically signed by: Price Escobar MD (08/13/2019 6:48 PM) [facility]
--- NOTE | 2019-08-13 18:59 | PHYS DOC ---
Past Medical History Past Medical History: Anxiety, Asthma, Depression, Endometriosis, IBS, STD, Other Additional Past Medical Histor: ulcer, Chronic R leg pain, Chronic ABD/Pelvic Pain, HPV Past Surgical History: Hysterectomy, Tonsillectomy, Other Additional Past Surgical Histo: L LEG FX, ENDOSCOPY,COLONOSCOPY, Laproscopic 03/22/18 Alcohol Use: None Drug Use: None Adult General Chief Complaint Chief Complaint: ABDOMINAL PAIN HPI HPI Patient is a 29 year old [f__sex] who presents with [] Review of Systems Review of Systems Constitutional: Denies fever or chills [] Eyes: Denies change in visual acuity, redness, or eye pain [] HENT: Denies nasal congestion or sore throat [] Respiratory: Denies cough or shortness of breath [] Cardiovascular: No additional information not addressed in HPI [] GI: Denies abdominal pain, nausea, vomiting, bloody stools or diarrhea [] : Denies dysuria or hematuria [] Musculoskeletal: Denies back pain or joint pain [] Integument: Denies rash or skin lesions [] Neurologic: Denies headache, focal weakness or sensory changes [] Endocrine: Denies polyuria or polydipsia [] All other systems were reviewed and found to be within normal limits, except as documented in this note. Current Medications Current Medications Current Medications Medications (Trade) Dose Ordered Sig/Luis Start Time Stop Time Status Last Admin Dose Admin Acetaminophen/ Hydrocodone Bitart (Lortab 5/325) 1 tab 1X ONCE 08/13/19 18:45 08/13/19 18:46 DC Multi-Ingredient Mouthwash/Gargle (Gi Cocktail) 20 ml 1X ONCE 08/13/19 18:00 08/13/19 18:01 DC 08/13/19 17:53 20 ML Allergies Allergies Allergies Coded Allergies Type Severity Reaction Last Updated Verified latex Allergy Severe Anaphylaxis 05/11/17 Yes ibuprofen Allergy Intermediate STOMACH PAIN AND VOMITING 01/06/19 Yes ketorolac Allergy Intermediate 09/20/18 Yes Physical Exam Physical Exam Constitutional: Well developed, well nourished, no acute distress, non-toxic appearance. [] HENT: Normocephalic, atraumatic, bilateral external ears normal, oropharynx moist, no oral exudates, nose normal. [] Eyes: PERRLA, EOMI, conjunctiva normal, no discharge. [] Neck: Normal range of motion, no tenderness, supple, no stridor. [] Cardiovascular:Heart rate regular rhythm, no murmur [] Lungs & Thorax: Bilateral breath sounds clear to auscultation [] Abdomen: Bowel sounds normal, soft, no tenderness, no masses, no pulsatile masses. [] Skin: Warm, dry, no erythema, no rash. [] Back: No tenderness, no CVA tenderness. [] Extremities: No tenderness, no cyanosis, no clubbing, ROM intact, no edema. [] Neurologic: Alert and oriented X 3, normal motor function, normal sensory function, no focal deficits noted. [] Psychologic: Affect normal, judgement normal, mood normal. [] Current Patient Data Vital Signs Vital Signs Date Time Temp Pulse Resp B/P (MAP) Pulse Ox O2 Delivery O2 Flow Rate FiO2 08/13/19 17:15 99.0 71 18 122/74 (90) 92 Room Air 99.0 Lab Values Laboratory Tests Test 08/13/19 17:12 POC Urine HCG, Qualitative Hcg negative (Negative) EKG EKG [] Radiology/Procedures Radiology/Procedures PROCEDURE: ABDOMEN LTD Examination: Ultrasound abdomen limited HISTORY: History of epigastric abdominal pain COMPARISON: 11/14/2017. FINDINGS: Visualized pancreas grossly appears unremarkable. The echogenicity liver grossly appears unremarkable. The right lobe of the liver measures 14.5 cm. No evidence of gallstones. The gallbladder wall thickness measures 2.1 mm. The common bile duct measures 3.7 mm in diameter. The visualized IVC grossly appears unremarkable. The right kidney measures 11.7 x 3.6 x 3.5 cm. IMPRESSION: Unremarkable visualized exam.[] Course & Med Decision Making Course & Med Decision Making Pertinent Labs and Imaging studies reviewed. (See chart for details) [] Dragon Disclaimer Dragon Disclaimer This electronic medical record was generated, in whole or in part, using a voice recognition dictation system. Departure Departure Impression: Primary Impression: Abdominal pain Disposition: 01 HOME, SELF-CARE Condition: STABLE Referrals: PEDRO ALMAZAN (PCP) Patient Instructions: Abdominal Pain (Nonspecific) Additional Instructions: Your ultrasound today was normal. Follow up with your GI doctor on 08/17/19 as planned. Diet as tolerated. Return to the ER if symptoms worsen. 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
== END 2019-08-13 19:05 | disposition home or self-care (01) ==
LOC: ER 16:11
DX: R10.13 Epigastric pain (principal); J45.909 Unspecified asthma, uncomplicated; K58.9 Irritable bowel syndrome, unspecified; G89.29 Other chronic pain; Z90.710 Acquired absence of both cervix and uterus; Z91.040 Latex allergy status; Z88.6 Allergy status to analgesic agent; Z88.8 Allergy status to other drugs, medicaments and biological substances
CPT/HCPCS: 76705; 81025; 99284-25

== ENCOUNTER 2020-01-24 20:57 | Emergency (ER) | payer MEDICAID ==
[~2020-01-24] VITALS: Ht 152.4 cm; Wt 56.8 kg
[2020-01-24 21:52] VITALS: BP 152/83
[2020-01-24 23:49] LABS: BILIRUBIN,URINE SMALL (NEG); CLARITY,URINE CLEAR; COLOR,URINE AMBER; NITRITE,URINE NEGATIVE (NEG); PROTEIN,URINE >=300 mg/dL (NEG-TRACE)
[2020-01-24 23:52] LABS: BACTERIA,URINE MODERATE /HPF (0-FEW); RBC,URINE 0 /HPF (0-2); SQUAMOUS EPITHELIAL CELL,UR MOD /LPF; WBC,URINE OCC /HPF (0-4)
== END 2020-01-24 23:43 | disposition left against medical advice (07) ==
LOC: ER 20:57
DX: R10.32 Left lower quadrant pain (principal); Z53.21 Procedure and treatment not carried out due to patient leaving prior to being seen by health care provider
CPT/HCPCS: 81001; 81025; 87086

== ENCOUNTER 2020-01-26 14:29 | Emergency (ER) | payer MEDICAID | END 2020-01-26 14:41 | disposition left against medical advice (07) | LOC: ER 14:29 | DX: R10.9 Unspecified abdominal pain (principal); Z53.21 Procedure and treatment not carried out due to patient leaving prior to being seen by health care provider ==

== ENCOUNTER 2021-04-27 09:53 | Emergency (ER) | payer MEDICAID ==
[~2021-04-27] VITALS: Ht 152.4 cm; Wt 68.1 kg
[~2021-04-27 09:53] MED LIST changes: -DOXY100C2 PO; +DOXY100C3 PO; +NAPR-699 PO; -NAPR250T6 PO
[2021-04-27] MEDS ORDERED: IV RINGERS,LACTATED 1000ML 1,000 ML IV SCH (11:00)
[2021-04-27] MEDS ORDERED: fentaNYL PF VIAL 100 MCG/2 ML VIAL IVP ONE ×2 (11:00→12:00)
[2021-04-27] MEDS ORDERED: ONDANSETRON PF 4 MG/2 ML VIAL. IVP ONE (11:00)
--- NOTE | 2021-04-27 11:00 | PHYS DOC ---
Past Medical History Past Medical History: Anxiety, Asthma, Depression, Endometriosis, IBS, STD, Other Additional Past Medical Histor: ulcer, Chronic R leg pain, Chronic ABD/Pelvic Pain, HPV Past Surgical History: Hysterectomy, Tonsillectomy, Other Additional Past Surgical Histo: L LEG FX, ENDOSCOPY,COLONOSCOPY, Laproscopic 03/22/18 Smoking Status: Current Some Day Smoker Alcohol Use: None Drug Use: None General Adult EDM: Chief Complaint: ABDOMINAL PAIN HPI: HPI: 31-year-old female with history of frequent UTI presents to the emergency department complaining of left flank pain, intractable nausea vomiting and diarrhea along with chills and fever for the past several days. She reports that she is being treated for urinary tract infection with Keflex for 10 days and she has been taking it for the past 5 days and has not had relief of her symptoms and states that her symptoms are now getting worse. The patient complains of pain along her left flank that is sharp radiating down to the left lower portion of the abdomen. She states she is unable to take her antibiotics because she cannot keep things down. She is requesting pain medicine and nausea medicine at this time. Reports burning upon urination. Patient denies chest pain shortness of breath recent sick contacts, cough, trauma, vaginal bleeding/discharge. Review of Systems: Review of Systems: ROS otherwise negative except for what was mentioned in HPI Heart Score: C/O Chest Pain: No Allergies: Allergies: Allergies Coded Allergies Type Severity Reaction Last Updated Verified latex Allergy Severe Anaphylaxis 05/11/17 Yes ibuprofen Allergy Intermediate STOMACH PAIN AND VOMITING 01/06/19 Yes ketorolac Allergy Intermediate 09/20/18 Yes Physical Exam: PE: Constitutional: Moderate distress, non-toxic appearance. HENT: Atraumatic, bilateral external ears normal, nose normal. Eyes: PERRLA, EOMI, conjunctiva normal, no discharge. Neck: Normal range of motion, supple, no stridor. Cardiovascular: Heart rate regular rhythm. 2+ radial pulses Lungs & Thorax: No respiratory distress, symmetrical expansion. Abdomen: Soft, left lower quadrant tenderness to palpation, left flank tenderness palpation, left CVA tenderness Skin: Warm, dry. Extremities: No tenderness, no cyanosis, ROM intact, no edema. Neurologic: Alert and oriented X 3, normal motor function, normal sensory function, no focal deficits noted. Non ataxic gait. GCS 15. Psychologic: Affect normal, judgment normal, mood normal. Current Patient Data: Labs: Laboratory Tests Test 04/27/21 11:10 White Blood Count 8.8 x10^3/uL (4.0-11.0) Red Blood Count 4.46 x10^6/uL (3.50-5.40) Hemoglobin 14.0 g/dL (12.0-15.5) Hematocrit 41.2 % (36.0-47.0) Mean Corpuscular Volume 92 fL (79-100) Mean Corpuscular Hemoglobin 32 pg (25-35) Mean Corpuscular Hemoglobin Concent 34 g/dL (31-37) Red Cell Distribution Width 13.7 % (11.5-14.5) Platelet Count 254 x10^3/uL (140-400) Neutrophils (%) (Auto) 55 % (31-73) Lymphocytes (%) (Auto) 32 % (24-48) Monocytes (%) (Auto) 9 % (0-9) Eosinophils (%) (Auto) 4 % (0-3) Basophils (%) (Auto) 1 % (0-3) Neutrophils # (Auto) 4.8 x10^3/uL (1.8-7.7) Lymphocytes # (Auto) 2.8 x10^3/uL (1.0-4.8) Monocytes # (Auto) 0.8 x10^3/uL (0.0-1.1) Eosinophils # (Auto) 0.3 x10^3/uL (0.0-0.7) Basophils # (Auto) 0.1 x10^3/uL (0.0-0.2) Sodium Level 143 mmol/L (136-145) Potassium Level 5.1 mmol/L (3.5-5.1) Chloride Level 104 mmol/L (98-107) Carbon Dioxide Level 31 mmol/L (21-32) Anion Gap 8 (6-14) Blood Urea Nitrogen 5 mg/dL (7-20) Creatinine 0.8 mg/dL (0.6-1.0) Estimated GFR (Cockcroft-Gault) 102.6 BUN/Creatinine Ratio 6 (6-20) Glucose Level 92 mg/dL (70-99) Calcium Level 8.8 mg/dL (8.5-10.1) Total Bilirubin 0.3 mg/dL (0.2-1.0) Aspartate Amino Transf (AST/SGOT) 14 U/L (15-37) Alanine Aminotransferase (ALT/SGPT) 19 U/L (14-59) Alkaline Phosphatase 69 U/L (46-116) Total Protein 7.3 g/dL (6.4-8.2) Albumin 3.4 g/dL (3.4-5.0) Albumin/Globulin Ratio 0.9 (1.0-1.7) Lipase 59 U/L (73-393) Vital Signs: Vital Signs Date Time Temp Pulse Resp B/P (MAP) Pulse Ox O2 Delivery O2 Flow Rate FiO2 04/27/21 12:41 64 17 135/93 (107) 98 Room Air 04/27/21 12:40 17 99 Room Air 04/27/21 11:17 22 94 Room Air 04/27/21 10:48 99.7 99 17 123/82 (96) 98 Room Air 99.7 Radiology/Procedures: Radiology/Procedures: EXAMINATION: CT ABDOMEN+PELVIS W CLINICAL HISTORY: Left flank pain, abdominal pain. History of endometriosis and hysterectomy TECHNIQUE: CT of the abdomen and pelvis was performed using standard technique, scanning from just above the dome of the diaphragm to the symphysis pubis following administration of intravenous contrast. CT Dose Reduction Employed: One or more of the following individualized dose reduction techniques were utilized for this examination: 1. Automated exposure control 2. Adjustment of the mA and/or kV according to patient size 3. Use of iterative reconstruction technique. COMPARISON: 02/03/2021 FINDINGS: Motion degraded images of the lungs demonstrate partially visualized mild patchy opacities in the left lower lobe. Minimal dependent right basilar subsegmental atelectasis. Minimally distended gallbladder. Liver, pancreas, spleen, and adrenal glands unremarkable. Tiny nonobstructive right renal calculus. Minimally filled urinary bladder suboptimally evaluated. Hysterectomy. No dilated bowel. Colonic wall prominence in the left colon is thought to most likely be related to underdistention, but mild colitis is not entirely excluded. No significant pericolonic inflammatory changes. No significant diverticulosis. Prominent air-filled appendix without secondary signs of acute appendicitis. No abdominal aortic or iliac artery aneurysm. No evidence of acute osseous abnormality. IMPRESSION: Nonspecific colonic wall prominence in the left colon, likely related to underdistention but mild colitis is not entirely excluded. Partially visualized patchy opacities in the left lower lobe, incompletely evaluated and may be related to subsegmental atelectasis but an infectious process is not entirely excluded. Correlate clinically and consider dedicated chest radiograph for further evaluation if indicated. Electronically signed by: Ezio Jasso DO (04/27/2021 12:09 PM) Course & Med Decision Making: Course & Med Decision Making Patient CT is unremarkable, while we are waiting for her urine results to close, the patient was away without therapeutic reason and had left the emergency department on her own accord. I did not have a chance to consumer credit counselor the patient prior to her leaving. She had medical decision-making capacity during each evaluation My Orders - HORTENCIA NEUMANN DO Procedure Category Date Status Time Ua, Cult If Indicated LAB 04/27/21 In Process 10:42 Urine Test CICI 04/27/21 In Process 10:42 Cbc W Autodiff LAB 04/27/21 Complete 10:54 Lipase LAB 04/27/21 Complete 10:54 Comprehensive LAB 04/27/21 Complete Metabolic Panel 10:54 Ct Abd Pelv W/ Iv CT 04/27/21 Resulted Contrst Only 10:54 Iv Ringers,Lactated PHA 04/27/21 Complete 1000ml (Iv Lactated 11:00 Fentanyl Pf Vial PHA 04/27/21 Complete (Fentanyl 2ml Vial) 11:00 Ondansetron Pf PHA 04/27/21 Complete (Zofran) 11:00 Iohexol 300 Mg/Ml PHA 04/27/21 Complete (Omnipaque 300 Mg/Ml) 11:45 Contrast Given -- PHA 04/27/21 In Process Info Only (Contrast Gi 11:45 Fentanyl Pf Vial PHA 04/27/21 Complete (Fentanyl 2ml Vial) 12:00 Chest Ap Only RAD 04/27/21 Taken 12:14 Departure Departure Impression: Primary Impression: Abdominal pain Disposition: LEFT AWOL/ELOPED Condition: IMPROVED Referrals: PEDRO ALMAZAN (PCP) HORTENCIA NEUMANN DO Apr 27, 2021 11:00
[2021-04-27 11:19] LABS: BASO # 0.1 x10^3/uL (0.0-0.2); BASO % 1 % (0-3); EOS # 0.3 x10^3/uL (0.0-0.7); EOS % 4 % (0-3); HEMATOCRIT 41.2 % (36.0-47.0); LYMPH # 2.8 x10^3/uL (1.0-4.8); LYMPH % 32 % (24-48); MEAN CORPUSCULAR HEMOGLOBIN 32 pg (25-35); MEAN CORPUSCULAR HGB CONC 34 g/dL (31-37); MEAN CORPUSCULAR VOLUME 92 fL (79-100); MONO # 0.8 x10^3/uL (0.0-1.1); MONO % 9 % (0-9); NEUT # 4.8 x10^3/uL (1.8-7.7); NEUT % 55 % (31-73); PLATELET COUNT 254 x10^3/uL (140-400); RED BLOOD COUNT 4.46 x10^6/uL (3.50-5.40); RED CELL DISTRIBUTION WIDTH 13.7 % (11.5-14.5); WHITE BLOOD COUNT 8.8 x10^3/uL (4.0-11.0)
[2021-04-27 11:28] LABS: CALCIUM 8.8 mg/dL (8.5-10.1); CREATININE 0.8 mg/dL (0.6-1.0); GFR 102.6; POTASSIUM 5.1 mmol/L (3.5-5.1)
[2021-04-27 11:34] LABS: ALBUMIN 3.4 g/dL (3.4-5.0); ALBUMIN/GLOBULIN RATIO 0.9 (1.0-1.7); TOTAL BILIRUBIN 0.3 mg/dL (0.2-1.0); TOTAL PROTEIN 7.3 g/dL (6.4-8.2)
[2021-04-27] MEDS ORDERED: CONTRAST GIVEN. MC PRN (11:45)
[2021-04-27] MEDS ORDERED: IOHEXOL 300 MG/ML 100ML VIAL. IV ONE (11:45)
--- NOTE | 2021-04-27 12:11 | RAD ---
EXAMINATION: CT ABDOMEN+PELVIS W CLINICAL HISTORY: Left flank pain, abdominal pain. History of endometriosis and hysterectomy TECHNIQUE: CT of the abdomen and pelvis was performed using standard technique, scanning from just ab ove the dome of the diaphragm to the symphysis pubis following administration of intravenous contrast . CT Dose Reduction Employed: One or more of the following individualized dose reduction techniques wer e utilized for this examination: 1. Automated exposure control 2. Adjustment of the mA and/or kV ac cording to patient size 3. Use of iterative reconstruction technique. COMPARISON: 02/03/2021 FINDINGS: Motion degraded images of the lungs demonstrate partially visualized mild patchy opacities in the lef t lower lobe. Minimal dependent right basilar subsegmental atelectasis. Minimally distended gallbladder. Liver, pancreas, spleen, and adrenal glands unremarkable. Tiny nonobstructive right renal calculus. Minimally filled urinary bladder suboptimally evaluated. Hysterectomy. No dilated bowel. Colonic wall prominence in the left colon is thought to most likely be related to u nderdistention, but mild colitis is not entirely excluded. No significant pericolonic inflammatory ch anges. No significant diverticulosis. Prominent air-filled appendix without secondary signs of acute appendicitis. No abdominal aortic or iliac artery aneurysm. No evidence of acute osseous abnormality. IMPRESSION: Nonspecific colonic wall prominence in the left colon, likely related to underdistention but mild col itis is not entirely excluded. Partially visualized patchy opacities in the left lower lobe, incompletely evaluated and may be relat ed to subsegmental atelectasis but an infectious process is not entirely excluded. Correlate clinical ly and consider dedicated chest radiograph for further evaluation if indicated. Electronically signed by: Ezio Jasso DO (04/27/2021 12:09 PM) [facility]
[2021-04-27 12:41] VITALS: BP 135/93
[2021-04-27 13:01] LABS: BILIRUBIN,URINE NEGATIVE (NEG); CLARITY,URINE CLEAR; COLOR,URINE YELLOW; NITRITE,URINE NEGATIVE (NEG); PH,URINE 6.5 (<5.0-8.0); PROTEIN,URINE NEGATIVE (NEG-TRACE); UROBILINOGEN,URINE 0.2 mg/dL (0.2 mg/dL)
[2021-04-27 13:19] LABS: BACTERIA,URINE 0 /HPF (0-FEW); RBC,URINE 0 /HPF (0-2)
--- NOTE | 2021-04-27 13:35 | RAD ---
EXAM: CHEST ONE VIEW. HISTORY: Infiltrate on CT. COMPARISON: 02/14/2019, 04/27/2021. FINDINGS: A frontal view of the chest is obtained. There is an airspace infiltrate in the left base and infrahilar region. There is no pneumothorax or p leural effusion. The heart is not enlarged. IMPRESSION: 1. Left basilar pneumonia. Electronically signed by: Penny Gross MD (04/27/2021 1:33 PM) [id number]
== END 2021-04-27 13:17 | disposition left against medical advice (07) ==
LOC: ER 09:53
DX: R10.32 Left lower quadrant pain (principal); R11.2 Nausea with vomiting, unspecified; R19.7 Diarrhea, unspecified; J45.909 Unspecified asthma, uncomplicated; K58.9 Irritable bowel syndrome, unspecified; G89.29 Other chronic pain; F17.200 Nicotine dependence, unspecified, uncomplicated; Z91.040 Latex allergy status; Z88.6 Allergy status to analgesic agent; Z88.8 Allergy status to other drugs, medicaments and biological substances
CPT/HCPCS: 36415; 71045; 74177; 80053; 81001; 83690; 85025; 96361; 96374; 96375; 96376; 99285; J2405; J3010; J7120; Q9967

== ENCOUNTER 2021-10-07 11:32 | Emergency (ER) | payer MEDICAID ==
[~2021-10-07] VITALS: Ht 152.4 cm; Wt 60.1 kg
[~2021-10-07 11:32] MED LIST changes: +CYCL10TA19 PO; -CYCL10TA2 PO
[2021-10-07 11:52] VITALS: BP 156/98
== END 2021-10-07 12:51 | disposition left against medical advice (07) ==
LOC: ER 11:32
DX: R10.10 Upper abdominal pain, unspecified (principal); R11.10 Vomiting, unspecified; Z53.21 Procedure and treatment not carried out due to patient leaving prior to being seen by health care provider